=== PATIENT | female | born 1995 | race Two or more races ===

== ENCOUNTER → 2020-05-17 10:57 | Outpatient (BNVA) | payer OTHER, SELFPAY | PROVIDERS: PCP Internal Medicine; Referring Provider Internal Medicine; Visit Provider Internal Medicine Pulmonary Disease | DX: J45.50 Severe persistent asthma, uncomplicated (principal); Z91.09 Other allergy status, other than to drugs and biological substances; Z79.899 Other long term (current) drug therapy; Z23 Encounter for immunization | CPT/HCPCS: 90686; 99204 ==

== ENCOUNTER 2020-06-14 13:47 | Outpatient (REF) | payer OTHER, SELFPAY | END 2020-06-14 13:48 | disposition home or self-care (01) | LOC: HO.RESP 13:47 | PROVIDERS: PCP Internal Medicine; Visit Provider Internal Medicine Pulmonary Disease | DX: J45.50 Severe persistent asthma, uncomplicated (principal) ==

== ENCOUNTER 2020-07-18 08:44 | Emergency (ER) | payer OTHER, SELFPAY ==
[2020-07-18 09:00] VITALS: BP 131/76; PULSE 88; RESP 22; TEMP 36.4; O2SAT 99; BMI 24.4
--- NOTE | 2020-07-18 09:18 | ED_ITS ---
HPI - Asthma General Chief Complaint: Asthma Stated Complaint: Asthma Time Seen by Provider: 07/18/20 09:17 Source: patient Mode of arrival: ambulatory History of Present Illness HPI Narrative: 25-year-old female with a past medical history of asthma presents to ED complaining of productive cough, worsening SOB/asthma, and sore throat since . Reports feels something stuck in throat on right side s/p eating ham during holiday. States pain radiates to right ear with swelling noted to right throat area when eating. Denies fever, chills, chest pain, recent travel, LE edema, sick contacts MD complaint: asthma attack Related Data Home Medications Medication Instructions Recorded Confirmed ipratropium 0.5 mg-albuterol 3 mg ml INHALATION Q6H 05/11/20 05/17/20 (2.5 mg base)/3 mL nebulization soln montelukast 10 mg tablet 10 mg PO DAILY 05/11/20 05/17/20 prednisone 10 mg tablet 0 mg PO DIRECTED 05/11/20 05/17/20 albuterol sulfate 90 mcg/actuation 1 inh INHALATION QID 05/17/20 05/17/20 aerosol inhaler Previous Rx's Medication Instructions Recorded fluticasone 232mcg-salmeterol 1 inh INHALATION BID 30 Days #1 ea 05/17/20 14mcg/actuation breath act,powder sensor acetaminophen [Tylenol Extra 500 mg PO Q6H PRN #20 tab 07/18/20 Strength] cefuroxime axetil 250 mg PO Q12H 7 Days #14 tab 07/18/20 prednisone 40 mg PO DAILY 5 Days #10 tab 07/18/20 Allergies Allergy/AdvReac Type Severity Reaction Status Date / Time ibuprofen [From MOTRIN] AdvReac Unknown N/V, Verified 05/17/20 11:01 vomiting Review of Systems Review of Systems: Constitutional: No Weight loss, No Fever, No Chills ENT/Mouth: +R Ear Pain, No Nasal Congestion, No Sinus Pain, No Hoarseness, + sore throat, No Rhinorrhea, + Swallowing pain Cardiovascular: No Chest Pain, + SOB Respiratory: + Cough, No Sputum, + Wheezing Gastrointestinal: No Nausea, No Vomiting, No Diarrhea, No Constipation, No Abdominal pain Musculoskeletal: No joint pain, No Myalgias, No Joint Swelling Skin: No Skin Lesions, No rash Yes all other systems are reviewed and are negative [facility] Past Medical History Attestation statement: The following information was validated with the patient. Medical History (Updated 07/18/20 @ 11:36 by PHIL [place]) Asthma Family History Family History Mother Asthma Social History Social History Smoking Status: Never smoker Advance Directives: No Advance Directives Information Provided: No Physical Exam Vital Signs: Vital Signs: Last Vital Signs Temp 97.5 F 07/18/20 09:00 Pulse 87 07/18/20 10:59 Resp 22 H 07/18/20 09:00 BP 131/76 07/18/20 09:00 Pulse Ox 99 07/18/20 09:00 Body Mass Index 24.4 Const: General: cooperative and healthy appearing Orientation/consciousness: patient oriented x3 Limitations: no limitations HENMT: Head: Yes normal to inspection Ears: hearing grossly normal bilaterally and TM's normal bilaterally General nose exam: Normal external nose present Face and sinus: Yes normal facial exam Mouth: Normal oral and palatal mucosa present Throat: Yes posterior oropharynx normal and Yes uvula midline Eyes: General: appearance normal, both eyes and all related structures EOM: EOMs intact bilaterally Neck: Other: +right sided submandibular lymphadenopathy. Trachea midline Neck: Yes normal visual inspection and Yes no meningeal signs Chest: Chest palpation & inspection: normal inspection of the chest Resp: Effort & Inspection: no stridor and tachypneic Auscultation: no crackles and wheezes throughout Cardio: Rate: regular rate Heart sounds: S1 normal heart sound present and S2 normal heart sound present GI: Inspection: Yes normal to inspection Skin: Rashes: no rashes Wounds: no wounds Neuro: General: patient oriented x3 and no meningeal signs Gait exam (Neuro): Normal gait present Extrem: Other: No LE edema or calf tenderness General: Yes normal to insp ection Course Course Course Narrative: -1100--labs unremarkable, UA nitrate positive, with bacteria and epithelials > will empirically treat -CXR/neck soft tissue x-ray without acute abnormalities -1135--On re-evaluation after 2 DuoNebs lungs CTA, patient reports symptomatic improvement. Labs/imaging discussed including worrisome signs and symptoms and strict return precautions. Patient is to follow-up with ENT. MDM - Asthma MDM Narrative Medical decision making narrative: 25-year-old female with a past medical history of asthma presents to ED complaining of productive cough, worsening SOB/asthma, and sore throat since Thanksgiving. On exam tachypneic, diffuse wheezing throughout, right-sided lymphadenopathy noted, no appreciable intraoral/exterior swelling. Concern for asthma exacerbation. Throat pain concerning for ?food bolus vs lymphadenopathy vs pharyngitis. Exam not consistent with [employer]. Rule out pneumonia. Low concern for ACS/PE Plan: EKG, labs, CXR/neck soft tissue XR, DuoNeb, Solu-Medrol, magnesium, reassess Lab Data Result diagrams: 07/18/20 09:37 07/18/20 09:37 Labs: Lab Results 07/18/20 07/18/20 07/18/20 Range/Units 09:37 09:37 09:37 WBC 5.8 (4.8-10.8) X10*3/uL RBC 4.70 (4.20-5.50) X10*6/uL Hgb 14.5 (12.0-16.0) g/dl Hct 43.1 (37-47) % MCV 91.7 (80-98) fL MCH 30.9 (27.0-33.0) pg MCHC 33.6 (31.0-35.0) g/dl RDW 12.8 (11.0-16.0) % Plt Count 220 (160-400) X10*3/uL MPV 11.2 (9.4-12.3) fL Immature Gran % (Auto) 0.2 (0.0-0.4) % Neut % (Auto) 52.0 (45-73) % Lymph % (Auto) 24.8 (20-40) % [place] % (Auto) 5.3 (2-11) % Eos % (Auto) 16.7 H (0-4) % Baso % (Auto) 1.0 (0-2) % Lymph # (Auto) 1.4 (1.2-4.9) X10*3/uL [place] # (Auto) 0.3 (0.1-1.2) X10*3/uL Eos # (Auto) 1.0 H (0.0-0.4) X10*3/uL Baso # (Auto) 0.1 (0.0-0.2) X10*3/uL Abs Immat Gran (auto) 0.01 (0.00-0.03) X10*3/uL Absolute Neuts (auto) 3.0 (2.0-8.3) X10*3/uL Absolute Nucleated RBC 0.000 (0.0-0.012) X10*3/uL Nucleated RBC % (auto) 0.0 (0.0-0.2) /100WBC Hold Blue Top SEE NOTE Sodium 138 (135-145) mmol/L Potassium 4.5 (3.3-5.1) mmol/l Chloride 106 (96-108) mmol/L Carbon Dioxide 26 (22-29) mmol/L Anion Gap 11 L (12-20) BUN 6 L (9-16) mg/dL Creatinine 0.62 (0.5-1.4) mg/dL Estim Creat Clear Calc 108.5 Estimated GFR > 60 Random Glucose 79 (60-115) mg/dL Calcium 9.2 (8.4-10.2) mg/dL Magnesium 2.0 (1.6-2.6) mg/dL Total Bilirubin (0.0-1.0) mg/dL Direct Bilirubin (0.0-0.5) mg/dL AST (5-31) U/L ALT (0-31) U/L Alkaline Phosphatase (39-117) U/L Total Protein (6.5-8.0) g/dL Albumin (3.5-5.0) g/dL 07/18/20 Range/Units 09:37 WBC (4.8-10.8) X10*3/uL RBC (4.20-5.50) X10*6/uL Hgb (12.0-16.0) g/dl Hct (37-47) % MCV (80-98) fL MCH (27.0-33.0) pg MCHC (31.0-35.0) g/dl RDW (11.0-16.0) % Plt Count (160-400) X10*3/uL MPV (9.4-12.3) fL Immature Gran % (Auto) (0.0-0.4) % Neut % (Auto) (45-73) % Lymph % (Auto) (20-40) % [place] % (Auto) (2-11) % Eos % (Auto) (0-4) % Baso % (Auto) (0-2) % Lymph # (Auto) (1.2-4.9) X10*3/uL [place] # (Auto) (0.1-1.2) X10*3/uL Eos # (Auto) (0.0-0.4) X10*3/uL Baso # (Auto) (0.0-0.2) X10*3/uL Abs Immat Gran (auto) (0.00-0.03) X10*3/uL Absolute Neuts (auto) (2.0-8.3) X10*3/uL Absolute Nucleated RBC (0.0-0.012) X10*3/uL Nucleated RBC % (auto) (0.0-0.2) /100WBC Hold Blue Top Sodium (135-145) mmol/L Potassium (3.3-5.1) mmol/l Chloride (96-108) mmol/L Carbon Dioxide (22-29) mmol/L Anion Gap (12-20) BUN (9-16) mg/dL Creatinine (0.5-1.4) mg/dL Estim Creat Clear Calc Estimated GFR Random Glucose (60-115) mg/dL Calcium (8.4-10.2) mg/dL Magnesium (1.6-2.6) mg/dL Total Bilirubin 0.9 (0.0-1.0) mg/dL Direct Bilirubin 0.3 (0.0-0.5) mg/dL AST 20 (5-31) U/L ALT 13 (0-31) U/L Alkaline Phosphatase 96 (39-117) U/L Total Protein 7.7 (6.5-8.0) g/dL Albumin 4.3 (3.5-5.0) g/dL Discharge Plan Discharge Clinical Impression: Asthma with acute exacerbation, UTI (urinary tract infection) Patient Disposition: Home, Self-Care Instructions: Asthma (ED), Urinary Tract Infection in Women (ED) Additional Instructions: Your blood work and chest x-ray/neck x-ray were reassuring today in the ED You are having an asthma exacerbation, continue taking her asthma inhalers and using her nebulizer machine at home In addition start taking prednisone as prescribed You need to follow-up with an ENT doctor Ceftin is an antibiotic that should cover the inflamed lymph node in her neck, and your urinary tract infection Follow up with her doctor If symptoms persist or worsen, you fever, are unable to eat or drink, develops shortness of breath, or chest pain return to the ED Prescriptions: New cefuroxime axetil 250 mg tablet 250 mg PO Q12H 7 Days Qty: 14 RF: 0 prednisone 20 mg tablet 40 mg PO DAILY 5 Days Qty: 10 RF: 0 acetaminophen [Tylenol Extra Strength] 500 mg tablet 500 mg PO Q6H PRN (Reason: pain or fever) Qty: 20 RF: 0 No Action albuterol sulfate [ProAir HFA] 90 mcg/actuation HFA aerosol inhaler 1 inh inhalation QID RF: 0 AirDuo Digihaler 232-14 mcg/actuation aero powdr breath act w/sensor 1 inh inhalation BID 30 Days Qty: 1 RF: 6 montelukast 10 mg tablet 10 mg PO DAILY RF: 0 ipratropium-albuterol 0.5 mg-3 mg(2.5 mg base)/3 mL solution for nebulization inhalation Q6H RF: 0 prednisone 10 mg tablet 0 mg PO DIRECTED RF: 0 Referrals: Edenilson Schumacher [Physician] - 2 days Mallorie Cristina MD [Primary Care Provider] - 3 days
--- NOTE | 2020-07-18 09:23 | XR_ITS ---
EXAMINATION: TWO-VIEW CHEST AND SOFT TISSUE NECK CLINICAL INFORMATION: Shortness of breath. Asthma. COMPARISON: Chest x-ray of April 29, 2020 and March 16, 2020 TECHNIQUE: PA and lateral chest and AP and lateral soft tissue neck FINDINGS: 2 views of the chest do not demonstrate any evidence of acute parenchymal disease, pneumothorax, or pleural effusion. Heart normal size. No evidence of pulmonary edema. AP and lateral soft tissue neck study does not demonstrate any abnormal retropharyngeal soft tissue swelling. No radiopaque foreign body is seen. No significant airway narrowing is noted. Epiglottis and aryepiglottic folds unremarkable. There is a question of fusion facet joints C4 through C6. XR/XR chest 2V IMPRESSION: No significant chest or soft tissue neck abnormality appreciated.
--- NOTE | 2020-07-18 09:23 | XR_ITS ---
EXAMINATION: TWO-VIEW CHEST AND SOFT TISSUE NECK CLINICAL INFORMATION: Shortness of breath. Asthma. COMPARISON: Chest x-ray of April 29, 2020 and March 16, 2020 TECHNIQUE: PA and lateral chest and AP and lateral soft tissue neck FINDINGS: 2 views of the chest do not demonstrate any evidence of acute parenchymal disease, pneumothorax, or pleural effusion. Heart normal size. No evidence of pulmonary edema. AP and lateral soft tissue neck study does not demonstrate any abnormal retropharyngeal soft tissue swelling. No radiopaque foreign body is seen. No significant airway narrowing is noted. Epiglottis and aryepiglottic folds unremarkable. There is a question of fusion facet joints C4 through C6. XR/XR soft tissue neck IMPRESSION: No significant chest or soft tissue neck abnormality appreciated.
--- NOTE | 2020-07-18 09:23 | ECG_ITS ---
Test Reason : SOB Blood Pressure : / mmHG Vent. Rate : 070 BPM Atrial Rate : 070 BPM P-R Int : 166 ms QRS Dur : 084 ms QT Int : 380 ms P-R-T Axes : 053 071 056 degrees QTc Int : 410 ms Normal sinus rhythm with sinus arrhythmia Normal ECG When compared with ECG of 07-NOV-2019 08:24, Vent. rate has decreased BY 44 BPM Referred By: Jacqueline Moraes Electronically Signed By:JEANNETTE VERDUGO MD
[2020-07-18 09:45] LABS: MANUAL DIFF FLAG NO
[2020-07-18 09:46] LABS: Basophils Absolute Auto 0.1 X10*3/uL (0.0-0.2); Eosinophils Percent Auto 16.7 % (0-4); Hematocrit 43.1 % (37-47); Hemoglobin 14.5 g/dl (12.0-16.0); Imm Gran Abs Auto 0.01 X10*3/uL (0.00-0.03); Imm Gran Pct Auto 0.2 % (0.0-0.4); Lymphocytes Absolute Auto 1.4 X10*3/uL (1.2-4.9); Lymphocytes Percent Auto 24.8 % (20-40); Mean Corpuscular HGB Conc 33.6 g/dl (31.0-35.0); Mean Corpuscular Hemoglobin 30.9 pg (27.0-33.0); Mean Corpuscular Volume 91.7 fL (80-98); Mean Platelet Volume 11.2 fL (9.4-12.3); Monocytes Absolute Auto 0.3 X10*3/uL (0.1-1.2); Monocytes Percent Auto 5.3 % (2-11); Platelet Count 220 X10*3/uL (160-400); Red Cell Distribution Width 12.8 % (11.0-16.0); White Blood Count 5.8 X10*3/uL (4.8-10.8)
[2020-07-18] MEDS: methylPREDNISolone Sod Succ/PF 125 MG/2 ML VIAL IVPUSH (09:47)
[2020-07-18] MEDS: Magnesium Sulfate/H2O 2 GM/50 ML PIGGYBACK IV (09:47)
[2020-07-18 10:13] LABS: Alanine Aminotransferase 13 U/L (0-31); Albumin Level 4.3 g/dL (3.5-5.0); Alkaline Phosphatase 96 U/L (39-117); Aspartate Amino Transferase 20 U/L (5-31); Bilirubin Direct 0.3 mg/dL (0.0-0.5); Bilirubin Total 0.9 mg/dL (0.0-1.0); Total Protein 7.7 g/dL (6.5-8.0)
[2020-07-18 10:16] LABS: Anion Gap 11 (12-20); Blood Urea Nitrogen 6 mg/dL (9-16); Calcium 9.2 mg/dL (8.4-10.2); Carbon Dioxide 26 mmol/L (22-29); Chloride 106 mmol/L (96-108); Creatinine Clr Calc Pharmacy 108.5; Estimated Glomerular Filt Rate > 60; Glucose Random 79 mg/dL (60-115); Potassium 4.5 mmol/l (3.3-5.1); Sodium 138 mmol/L (135-145)
[2020-07-18] MEDS: Albuterol/Iprat 2.5/0.5MG 3 ML AMPUL.NEB INHALE ×2 (10:44→10:59)
[2020-07-18 10:45] VITALS: PULSE 71; O2SAT 97
[2020-07-18 10:59] VITALS: PULSE 87; O2SAT 97
[2020-07-18] MEDS: 0.9 % Sodium Chloride 1,000 ML 999 ML IVCONT (11:10)
[2020-07-18] MEDS: Acetaminophen 325 MG TABLET 650 MG PO (11:38)
--- NOTE | 2020-07-18 11:41 | PC.NURSE ---
patient able to complete PO challenge successfully.
== END 2020-07-18 11:52 | disposition home or self-care (01) ==
PROVIDERS: Physician Assistant; Emergency Provider Emergency Medicine; PCP Internal Medicine
DX: J45.901 Unspecified asthma with (acute) exacerbation (principal); N39.0 Urinary tract infection, site not specified; R59.1 Generalized enlarged lymph nodes; Z79.899 Other long term (current) drug therapy
CPT/HCPCS: 36415; 70360; 71046; 80048; 80076; 83735; 85025; 93005; 94640; 96365; 96366; 99283; 99284; J2930; J3475

== ENCOUNTER → 2020-07-22 09:27 | Outpatient (BNVA) | payer OTHER, SELFPAY | PROVIDERS: PCP Internal Medicine; Referring Provider Internal Medicine; Visit Provider Internal Medicine Pulmonary Disease | DX: Z13.89 Encounter for screening for other disorder (principal) ==

== ENCOUNTER 2020-08-13 09:28 | Emergency (ER) | payer OTHER, SELFPAY ==
[2020-08-13 09:32] VITALS: PULSE 103; RESP 22; TEMP 36.7; O2SAT 96; BMI 23.4
[2020-08-13 11:10] VITALS: BP 110/72; PULSE 88; RESP 20; TEMP 36.7; O2SAT 97
--- NOTE | 2020-08-13 11:11 | XR_ITS ---
EXAMINATION: XR CHEST CLINICAL INFORMATION: Wheezing, shortness of breath. COMPARISON: 07/18/2020 chest radiographs. TECHNIQUE: Frontal view of the chest was obtained. FINDINGS: No significant abnormality is noted involving the heart, lungs, mediastinum, bony thorax or soft tissues. XR/XR chest 1V IMPRESSION: No acute cardiopulmonary process.
[2020-08-13] MEDS: Albuterol Sulfate (0.083%) 2.5 MG/3 ML VIAL.NEB 10 MG INHALE (11:50)
[2020-08-13] MEDS: methylPREDNISolone Sod Succ/PF 125 MG/2 ML VIAL 80 MG IVPUSH (11:53)
[2020-08-13 11:54] VITALS: PULSE 84; O2SAT 98
--- NOTE | 2020-08-13 11:55 | PC.NURSE ---
iv inserted, labs drawn, teletypesetter monitor applied, nsr 80s, vss, rt in room doing updraft, will continue to monitor.
[2020-08-13 11:57] LABS: Basophils Percent Auto 0.5 % (0-2); Eosinophils Absolute Auto 0.3 X10*3/uL (0.0-0.4); Eosinophils Percent Auto 4.6 % (0-4); Hematocrit 39.7 % (37-47); Hemoglobin 13.5 g/dl (12.0-16.0); Imm Gran Abs Auto 0.02 X10*3/uL (0.00-0.03); Imm Gran Pct Auto 0.3 % (0.0-0.4); Lymphocytes Absolute Auto 1.4 X10*3/uL (1.2-4.9); Lymphocytes Percent Auto 19.3 % (20-40); MANUAL DIFF FLAG NO; Mean Corpuscular Hemoglobin 31.3 pg (27.0-33.0); Mean Corpuscular Volume 92.1 fL (80-98); Mean Platelet Volume 10.9 fL (9.4-12.3); Monocytes Absolute Auto 0.5 X10*3/uL (0.1-1.2); Monocytes Percent Auto 6.1 % (2-11); Neutrophils Absolute Auto 5.1 X10*3/uL (2.0-8.3); Neutrophils Percent Auto 69.2 % (45-73); Platelet Count 204 X10*3/uL (160-400); Red Blood Count 4.31 X10*6/uL (4.20-5.50); White Blood Count 7.4 X10*3/uL (4.8-10.8)
--- NOTE | 2020-08-13 12:00 | ED.ASTHMA ---
HPI - Asthma General Chief Complaint: Asthma Stated Complaint: asthma Time Seen by Provider: 08/13/20 11:11 Source: patient Mode of arrival: ambulatory Limitations: no limitations History of Present Illness HPI Narrative: 25 y/o female with history of severe persistent asthma, depression, eczema who presents to the ED today with worsening asthma symtptoms and wheezing for the last 1 week. She has been using her nebulizer at home with no improvement. She also reports right lateral neck pain and swelling that has been present for the last 3 weeks. She was seen here on 07/18 for similar complaints, had negative XR neck and told to f/u with ENT. ENT does not take her insurance per patient. She was discharged with prednisone and antibiotics but she states the neck swelling has only gotten worse. It hurts to eat and swallow. She feels it is making her breathing worse. She denies fever, chills, N/V, cough. MD complaint: shortness of breath and wheezing Onset (ago): day(s) (7) Severity: moderate and similar to prior Related Data Home Medications Medication Instructions Recorded Confirmed ipratropium 0.5 mg-albuterol 3 mg ml INHALATION Q6H 05/11/20 08/05/20 (2.5 mg base)/3 mL nebulization soln montelukast 10 mg tablet 10 mg PO DAILY 05/11/20 08/05/20 Previous Rx's Medication Instructions Recorded fluticasone 232mcg-salmeterol 1 inh INHALATION BID 30 Days #1 ea 05/17/20 14mcg/actuation breath act,powder sensor acetaminophen [Tylenol Extra 500 mg PO Q6H PRN #20 tab 07/18/20 Strength] albuterol sulfate 90 mcg/actuation 1 puff PO Q4H PRN 30 Days #8.5 g 08/04/20 aerosol inhaler triamcinolone acetonide 0.1 % 1 appl TOPICAL BID PRN 30 Days #30 08/05/20 topical cream g fluoxetine 10 mg capsule 10 mg PO DAILY 30 Days #30 cap 08/07/20 azithromycin [Zithromax Z-Kyrie] See Rx Instructions .ROUTE 08/13/20 .COMPLEX #6 tab prednisone 10 mg PO PER PKG DIR #48 ea 08/13/20 Allergies Allergy/AdvReac Type Severity Reaction Status Date / Time ibuprofen [From MOTRIN] AdvReac Intermediate N/V, Verified 08/13/20 11:06 vomiting Review of Systems Review of Systems: Constitutional: No Fever, No Chills ENT/Mouth: No sore throat, No Rhinorrhea, + Swallowing Difficulty Cardiovascular: No Chest Pain, + SOB, No Orthopnea, No Edema Respiratory: No Cough, No Sputum, + Wheezing, + dyspnea Gastrointestinal: No Nausea, No Vomiting, No Diarrhea, No abdominal Pain Musculoskeletal: No joint pain, No Myalgias Skin: No Skin Lesions, No rash Neuro: No Weakness, No Numbness, No Dizziness, No Headache Psych: No Anxiety/Panic, No Depression Heme/Lymph: No Bruising, + Lymphadenopathy Endocrine: No Polyuria, No Polydipsia PMFSH Past Medical History Medical History (Updated 08/13/20 @ 14:26 by PHIL Up) Asthma Depression Eczema Surgical History History of cholecystectomy History of tonsillectomy and adenoidectomy Family History Family History (Updated 07/30/20 @ 07:41 by Shana Rivas [facility]) Mother Asthma Bipolar 1 disorder Hypertension Schizophrenia Father No problems noted. Maternal Grandmother Hypertension Family/Other Breast cancer Social History Social History Alcohol intake: never Smoking Status: Never smoker Use of substances other than those prescribed or required for medical reasons: No Advance Directives: No Advance Directives Information Provided: No Physical Exam Vital Signs: Vital Signs: Last Vital Signs Temp 98.3 F 08/13/20 13:43 Pulse 82 08/13/20 13:43 Resp 17 08/13/20 13:43 BP 116/66 08/13/20 13:43 Pulse Ox 99 08/13/20 13:43 Body Mass Index 23.4 Appearance: Alert. Oriented X3. No acute distress. Eyes: Pupils equal, round and reactive to light. ENT: Pharynx normal, s/p tonsillectomy. Neck: Normal inspection. Neck supple. 1cm right sided enalrge LN alond SCM. tender to touch. No skin changes CVS: Normal heart rate and rhythm. Pulses normal. Respiratory: No respiratory distress. Expiratory wheeze throughout. Abdomen: Soft and nontender. +BS x4 Skin: Skin warm and dry. Normal skin color. Normal skin turgor. No rashes. Extremities: No lower extremity edema. Neuro: Oriented X 3. No motor deficit. No sensory deficit. Course Course Course Narrative: 25 y/o female with history of severe persistent asthma presenting with wheezing and asthma exacerbation. Also reports almost 1 month of painful right sided neck mass causing painful swallowing and difficulty breathing. XR 3 weeks ago was negative. Exam reveals palpable LN however given symptoms will proceed with CT scan for further investigtion. No COVID symptoms. 1 hour neb ordered & IV steroids. Will re-evaluate. Reevaluation(s) Reevaluation #1: CXR negative. Labs unremarkable. Resp status improved after neb and steroids. Awaiting CT scan. Reevaluation #2: Patient now refusing CT scan - she has called her PCP while in the ER to arrange for outpatient ENT evaluation and CT scan with her doctor. Her resp status is stable and she is able to tolerate food/drink by mouth. She is stable for discharge with plans for continued outpatient workup. MDM - Asthma Lab Data Result diagrams: 08/13/20 11:48 08/13/20 11:48 Labs: Lab Results 08/13/20 08/13/20 Range/Units 11:48 11:48 WBC 7.4 (4.8-10.8) X10*3/uL RBC 4.31 (4.20-5.50) X10*6/uL Hgb 13.5 (12.0-16.0) g/dl Hct 39.7 (37-47) % MCV 92.1 (80-98) fL MCH 31.3 (27.0-33.0) pg MCHC 34.0 (31.0-35.0) g/dl RDW 13.0 (11.0-16.0) % Plt Count 204 (160-400) X10*3/uL MPV 10.9 (9.4-12.3) fL Immature Gran % (Auto) 0.3 (0.0-0.4) % Neut % (Auto) 69.2 (45-73) % Lymph % (Auto) 19.3 L (20-40) % [place] % (Auto) 6.1 (2-11) % Eos % (Auto) 4.6 H (0-4) % Baso % (Auto) 0.5 (0-2) % Lymph # (Auto) 1.4 (1.2-4.9) X10*3/uL [place] # (Auto) 0.5 (0.1-1.2) X10*3/uL Eos # (Auto) 0.3 (0.0-0.4) X10*3/uL Baso # (Auto) 0.0 (0.0-0.2) X10*3/uL Abs Immat Gran (auto) 0.02 (0.00-0.03) X10*3/uL Absolute Neuts (auto) 5.1 (2.0-8.3) X10*3/uL Absolute Nucleated RBC 0.000 (0.0-0.012) X10*3/uL Nucleated RBC % (auto) 0.0 (0.0-0.2) /100WBC Sodium 139 (135-145) mmol/L Potassium 3.7 (3.3-5.1) mmol/l Chloride 107 (96-108) mmol/L Carbon Dioxide 26 (22-29) mmol/L Anion Gap 10 L (12-20) BUN 8 L (9-16) mg/dL Creatinine 0.62 (0.5-1.4) mg/dL Estim Creat Clear Calc 98.7 Estimated GFR > 60 Random Glucose 81 (60-115) mg/dL Calcium 8.8 (8.4-10.2) mg/dL Beta HCG, Quant < 2 mIU/mL Discharge Plan Discharge Clinical Impression: Asthma with acute exacerbation Qualifiers: Asthma severity: severe Asthma persistence: persistent Qualified Code(s): J45.51 - Severe persistent asthma with (acute) exacerbation Patient Disposition: Home, Self-Care Instructions: Asthma (ED), Adenitis (ED) Additional Instructions: Your chest x-ray was normal. It was recommended that you get a CT scan of your neck to further investigate your symptoms however you needed to leave the ER today and have arranged to have this evaluated as an outpatient. If your symptoms worsen, come back to the ER for further evaluation. Take the prescribed prednisone taper and Z-pack to help your asthma symptoms. Follow up with your doctor this week. Prescriptions: New prednisone 10 mg tablets,dose pack 10 mg PO PER PKG DIR Qty: 48 RF: 0 azithromycin [Zithromax Z-Kyrie] 250 mg tablet See Rx Instructions .ROUTE .COMPLEX Qty: 6 RF: 0 No Action albuterol sulfate 90 mcg/actuation HFA aerosol inhaler 1 puff PO Q4H PRN (Reason: bronchospasm) 30 Days Qty: 8.5 RF: 2 fluoxetine 10 mg capsule 10 mg PO DAILY 30 Days Qty: 30 RF: 0 acetaminophen [Tylenol Extra Strength] 500 mg tablet 500 mg PO Q6H PRN (Reason: pain or fever) Qty: 20 RF: 0 triamcinolone acetonide 0.1 % cream 1 appl topical BID PRN (Reason: rash) 30 Days Qty: 30 RF: 3 AirDuo Digihaler 232-14 mcg/actuation aero powdr breath act w/sensor 1 inh inhalation BID 30 Days Qty: 1 RF: 6 montelukast 10 mg tablet 10 mg PO DAILY RF: 0 ipratropium-albuterol 0.5 mg-3 mg(2.5 mg base)/3 mL solution for nebulization inhalation Q6H RF: 0 Referrals: Edenilson Schumacher [Physician] - 2 days (neck mass)
[2020-08-13 12:21] LABS: Anion Gap 10 (12-20); Blood Urea Nitrogen 8 mg/dL (9-16); Calcium 8.8 mg/dL (8.4-10.2); Carbon Dioxide 26 mmol/L (22-29); Chloride 107 mmol/L (96-108); Creatinine Clr Calc Pharmacy 98.7; Estimated Glomerular Filt Rate > 60; Glucose Random 81 mg/dL (60-115); Potassium 3.7 mmol/l (3.3-5.1); Sodium 139 mmol/L (135-145)
[2020-08-13 13:19] LABS: HCG Quantitative < 2 mIU/mL
[2020-08-13 13:43] VITALS: BP 116/66; PULSE 82; RESP 17; TEMP 36.8; O2SAT 99
--- NOTE | 2020-08-13 13:44 | PC.NURSE ---
patient a&ox3, speaking in full sentences, ekg monitor nsr 80s, pt states she is feeling better, lungs are diminished but wheezing has cleared, will continue to monitor
== END 2020-08-13 15:14 | disposition home or self-care (01) ==
PROVIDERS: Physician Assistant; Emergency Provider Emergency Medicine Emergency Medical Services; PCP Internal Medicine
DX: J45.51 Severe persistent asthma with (acute) exacerbation (principal); Z79.899 Other long term (current) drug therapy; I10 Essential (primary) hypertension; Z20.828 Contact with and (suspected) exposure to other viral communicable diseases
CPT/HCPCS: 36415; 71045; 80048; 84702; 85025; 94640; 96374; 96375; 99284; 99285; J2930

== ENCOUNTER 2020-09-03 09:26 | Emergency (ER) | payer OTHER, SELFPAY ==
[2020-09-03 09:53] VITALS: BP 121/69; PULSE 81; RESP 18; TEMP 36.6; O2SAT 99; BMI 24.4
--- NOTE | 2020-09-03 10:32 | ED_ITS ---
HPI - Dental/Oral General Chief complaint: Dental/Oral Stated complaint: mouth pain Time Seen by Provider: 09/03/20 10:17 Source: patient Mode of arrival: ambulatory History of Present Illness HPI Narrative: 25-year-old Female with a past medical history of asthma, eczema, depression, tonsillectomy and adenoidectomy presenting to the ED complaining of right cheek sore s/p biting cheek while eating. Reports acute on chronic right- sided neck pain/swelling radiating to eat which she has been evaluated in the ED for recently, and admits she has ENT follow-up on the . States neck pain only happens when eating, no swelling at present. Denies difficulty/inability to swallow, fever, drainage from ears/hearing loss, dental injury/pain, fevers Related Data Home Medications Medication Instructions Recorded Confirmed ipratropium 0.5 mg-albuterol 3 mg ml INHALATION Q6H 05/11/20 08/05/20 (2.5 mg base)/3 mL nebulization soln montelukast 10 mg tablet 10 mg PO DAILY 05/11/20 08/05/20 Previous Rx's Medication Instructions Recorded fluticasone 232mcg-salmeterol 1 inh INHALATION BID 30 Days #1 ea 05/17/20 14mcg/actuation breath act,powder sensor acetaminophen [Tylenol Extra 500 mg PO Q6H PRN #20 tab 07/18/20 Strength] albuterol sulfate 90 mcg/actuation 1 puff PO Q4H PRN 30 Days #8.5 g 08/04/20 aerosol inhaler triamcinolone acetonide 0.1 % 1 appl TOPICAL BID PRN 30 Days #30 08/05/20 topical cream g fluoxetine 10 mg capsule 10 mg PO DAILY 30 Days #30 cap 08/07/20 azithromycin [Zithromax Z-Kyrie] See Rx Instructions .ROUTE 08/13/20 .COMPLEX #6 tab prednisone 10 mg PO PER PKG DIR #48 ea 08/13/20 lidocaine HCl [Lidocaine Viscous] 1 appl MUCOUS MEMBRANE BID PRN 09/03/20 #100 ml Allergies Allergy/AdvReac Type Severity Reaction Status Date / Time ibuprofen [From MOTRIN] AdvReac Intermediate N/V, Verified 08/13/20 11:06 vomiting Review of Systems Review of Systems: Constitutional: No Weight loss, No Fever, No Chills ENT/Mouth: + Ear Pain, No Nasal Congestion, No Sinus Pain, No Hoarseness, No sore throat, + right cheek pain, No Swallowing Difficulty Cardiovascular: No SOB Respiratory: No Cough,No Wheezing Skin: + Skin Lesions, No rash Yes all other systems are reviewed and are negative [facility] Past Medical History Attestation statement: The following information was validated with the patient. Medical History (Updated 09/03/20 @ 10:38 by PHIL [place]) Asthma Depression Eczema Rhinitis Surgical History History of cholecystectomy History of tonsillectomy and adenoidectomy Family History Family History (Updated 07/30/20 @ 07:41 by Shana Rivas [facility]) Mother Asthma Bipolar 1 disorder Hypertension Schizophrenia Father No problems noted. Maternal Grandmother Hypertension Family/Other Breast cancer Social History Social History Alcohol intake: never Smoking Status: Never smoker Advance Directives: No Advance Directives Information Provided: Yes Physical Exam Vital Signs: Vital Signs: Last Vital Signs Temp 97.9 F 09/03/20 09:53 Pulse 81 09/03/20 09:53 Resp 18 09/03/20 09:53 BP 121/69 09/03/20 09:53 Pulse Ox 99 09/03/20 09:53 Body Mass Index 24.4 Const: General: cooperative, healthy appearing, comfortable and no acute distress Orientation/consciousness: patient oriented x3 Limitations: no limitations HENMT: Other: No lymphadenopathy appreciated. + right cheek canker sore noted. No cellulitis no fluctuance or induration Head: Yes normal to inspection Ea rs: hearing grossly normal bilaterally and TM's normal bilaterally General nose exam: Normal external nose present Face and sinus: Yes normal facial exam Mouth: lip normal, tongue normal, no drooling and no muffled voice Throat: Yes posterior oropharynx normal, Yes tonsils normal, Yes uvula midline and No peritonsillar mass Eyes: General: appearance normal, both eyes and all related structures EOM: EOMs intact bilaterally Neck: Neck: Yes normal visual inspection, Yes full ROM, Yes no lymphadenopathy and Yes no meningeal signs Resp: Effort & Inspection: normal respiratory effort and no stridor Cardio: Rate: regular rate Skin: Rashes: no rashes Wounds: no wounds Neuro: General: patient oriented x3 and no meningeal signs Gait exam (Neuro): Normal gait present Extrem: General: Yes normal to inspection MDM - Dental/Oral MDM Narrative Medical decision making narrative: Physical exam consistent with canker sore s/p biting cheek. No appreciable intraoral or neck swelling. Exam not consistent with [employer]/cellulitis or edema. Patient has follow-up with ENT next month Discharge Plan Discharge Clinical Impression: Canker sores oral Patient Disposition: Home, Self-Care Instructions: Canker Sores (ED) Additional Instructions: Practice warm saltwater rinses at home In addition viscous lidocaine will help numb the area Avoid biting area again/trauma If area worsens, looks infected, you have oral or neck swelling, difficulty or inability to swallow, or fever return to the ED Make sure you follow-up with her ENT doctor as scheduled Prescriptions: New Lidocaine Viscous 2 % solution 1 appl mucous membrane BID PRN (Reason: pain) Qty: 100 RF: 0 No Action albuterol sulfate 90 mcg/actuation HFA aerosol inhaler 1 puff PO Q4H PRN (Reason: bronchospasm) 30 Days Qty: 8.5 RF: 2 fluoxetine 10 mg capsule 10 mg PO DAILY 30 Days Qty: 30 RF: 0 acetaminophen [Tylenol Extra Strength] 500 mg tablet 500 mg PO Q6H PRN (Reason: pain or fever) Qty: 20 RF: 0 prednisone 10 mg tablets,dose pack 10 mg PO PER PKG DIR Qty: 48 RF: 0 azithromycin [Zithromax Z-Kyrie] 250 mg tablet See Rx Instructions .ROUTE .COMPLEX Qty: 6 RF: 0 triamcinolone acetonide 0.1 % cream 1 appl topical BID PRN (Reason: rash) 30 Days Qty: 30 RF: 3 AirDuo Digihaler 232-14 mcg/actuation aero powdr breath act w/sensor 1 inh inhalation BID 30 Days Qty: 1 RF: 6 montelukast 10 mg tablet 10 mg PO DAILY RF: 0 ipratropium-albuterol 0.5 mg-3 mg(2.5 mg base)/3 mL solution for nebulization inhalation Q6H RF: 0 Referrals: Edenilson Schumacher [Physician] - 2 days
== END 2020-09-03 10:44 | disposition home or self-care (01) ==
PROVIDERS: Emergency Provider Emergency Medicine; PCP Internal Medicine
DX: K12.0 Recurrent oral aphthae (principal)
CPT/HCPCS: 99283

== ENCOUNTER 2020-09-28 08:33 | Emergency (ER) | payer OTHER, SELFPAY ==
[2020-09-28 08:43] VITALS: BP 129/74; PULSE 78; RESP 20; TEMP 36.7; O2SAT 98; BMI 24.4
--- NOTE | 2020-09-28 09:42 | ED_ITS ---
HPI - Asthma General Chief Complaint: Asthma Stated Complaint: ASTHMA Time Seen by Provider: 09/28/20 09:20 Source: patient Mode of arrival: ambulatory Limitations: no limitations History of Present Illness HPI Narrative: 25-year-old female with a history asthma who presents emergency department for evaluation of asthma exacerbation. The patient states that she gets flare-ups her asthma every 1-2 months and requires treatment in the emergency department. She states that her asthma has been worse over the past week. She states that she has been using her albuterol nebulizer every 6 hours and her albuterol inhaler every 4 hours with no relief for symptoms. She states that last night her shortness of breath got worse therefore she came to the emergency department this morning for evaluation. She states that in the emergency department she often gets IV steroids, magnesium IV and breathing treatments. She states that she has only been hospitalized once in the past at [facility] and she has never been intubated. She denied fever, chills, cough, chest pain, abdominal pain, nausea, vomiting, diarrhea, myalgias, arthralgias, loss of taste or smell, exposure to COVID-19 Related Data Home Medications Medication Instructions Recorded Confirmed ipratropium 0.5 mg-albuterol 3 mg ml INHALATION Q6H 05/11/20 09/09/20 (2.5 mg base)/3 mL nebulization soln montelukast 10 mg tablet 10 mg PO DAILY 05/11/20 09/09/20 Previous Rx's Medication Instructions Recorded fluticasone 232mcg-salmeterol 1 inh INHALATION BID 30 Days #1 ea 05/17/20 14mcg/actuation breath act,powder sensor acetaminophen [Tylenol Extra 500 mg PO Q6H PRN #20 tab 07/18/20 Strength] albuterol sulfate 90 mcg/actuation 1 puff PO Q4H PRN 30 Days #8.5 g 08/04/20 aerosol inhaler fluoxetine 10 mg capsule 10 mg PO DAILY #30 cap 09/07/20 phentermine 37.5 mg tablet 37.5 mg PO DAILY 30 Days #30 tab 09/09/20 albuterol sulfate 2.5 mg INHALATION Q6H #180 ml 09/28/20 prednisone 60 mg PO DAILY 5 Days #15 tab 09/28/20 Allergies Allergy/AdvReac Type Severity Reaction Status Date / Time ibuprofen [From MOTRIN] AdvReac Intermediate N/V, Verified 09/26/20 14:03 vomiting Review of Systems Review of Systems: Yes all other systems are reviewed and are negative Neurologic: Reports Abnormal speech present [facility] Past Medical History Medical History Asthma Depression Eczema Rhinitis Weight gain Surgical History History of cholecystectomy History of tonsillectomy and adenoidectomy Family History Family History Mother Asthma Bipolar 1 disorder Hypertension Schizophrenia Father No problems noted. Maternal Grandmother Hypertension Family/Other Breast cancer Social History Social History Alcohol intake: unknown Smoking Status: Unknown if ever smoked Use of substances other than those prescribed or required for medical reasons: No Advance Directives: No Advance Directives Information Provided: No Physical Exam Vital Signs: Vital Signs: Last Vital Signs Temp 98.0 F 09/28/20 08:43 Pulse 105 H 09/28/20 10:41 Resp 20 09/28/20 10:41 BP 117/65 09/28/20 10:41 Pulse Ox 100 09/28/20 10:41 Body Mass Index 24.4 Const: General: cooperative and healthy appearing Orientation/consciousness: oriented to person and oriented to place Limitations: no limitations HENMT: Head: Yes normal to inspection, Yes normocephalic and Yes atraumatic Ears: external ears normal General nose exam: Normal external nose present Face and sinus: Yes normal facial exam Mouth: Normal oral and palatal mucosa present Throat: Yes posterior oropharynx normal Eyes: Periorbital: periorbital findings normal Eyelids: Yes eyelids normal Conjunctivae: conjunctivae normal Sclerae: sclerae normal Corneas: corneas normal Pupils: Equal, round and reactive pupils present Direct Ophthalmoscopy: normal light reflex Neck: Neck: Yes full ROM, Yes no lymphadenopathy, Yes no meningeal signs, Yes trachea midline and Yes supple Chest: Chest palpation & inspection: normal inspection of the chest and normal palpation of entire chest wall Resp: Effort & Inspection: normal respiratory effort and able to speak in complete sentences Auscultation: rhonchi throughout and wheezes throughout Cardio: Rate: regular rate Rhythm: regular rhythm Heart sounds: S1 normal heart sound present, S2 normal heart sound present and no murmurs GI: Inspection: Yes normal to inspection Palpation (GI): Soft to palpation, nontender, no guarding, not rigid and No hepatosplenomegaly present : General: Yes no CVA tenderness Back/Spine/Pelvis: Back: no CVA tenderness Cervical Spine: normal cervical lordosis Thoracic/Lumbar Spine: thoracic and lumbar spine normal to inspection Skin: Lesions: no lesions Rashes: no rashes Wounds: no wounds Neuro: General: oriented to person, oriented to place and no meningeal signs Cranial nerves: Yes Equal, round and reactive pupils present Cognition (Neuro): normal cognition Speech: Abnormal speech present Motor exam (neuro): 5/5 motor strength present throughout Extrem: General: Yes normal to inspection and Yes full ROM Psych: Appearance: well kempt Mental Status: mental status grossly normal Speech and movement: Normal speech and movement present Affect: normal affect Attitude: cooperative Thought process: Normal thought process present Thought content: Normal thought content present Course Course Course Narrative: 25-year-old female with a history asthma who presents emergency department for an elevation of an asthma exacerbation. Physical exami [facility] revealed that she was afebrile, she does have a slight elevated respiratory rate 20, O2 saturation was 90% on room air. Lung exam revealed diffuse wheezing and rhonchi. The patient was ordered to get Solu-Medrol 125 mg IV, magnesium sulfate 2 g IV and an hour long albuterol nebulizer 7.5 mg. 1226: The patient states she is feeling significantly better. Repeat lung exam was clear to auscultation. the patient will be discharged home with a prescription for prednisone 60 mg once a day for 5 days and albuterol nebulizer solution. She was given verbal and printed instructions and discharged home. Discharge Plan Discharge Clinical Impression: Asthma exacerbation Qualifiers: Asthma severity: severe Asthma persistence: unspecified Qualified Code(s): J45.901 - Unspecified asthma with (acute) exacerbation Patient Disposition: Home, Self-Care Instructions: Asthma (ED) Additional Instructions: Take prednisone 60 mg once a day for 5 days. Use all of your other medications as prescribed by your doctor. Follow-up with your doctor in 2 days. Please return to the emergency department if your symptoms get worse or if you develop any symptoms that are concerning to you. Prescriptions: New prednisone 20 mg tablet 60 mg PO DAILY 5 Days Qty: 15 RF: 0 albuterol sulfate 2.5 mg /3 mL (0.083 %) solution for nebulization 2.5 mg inhalation Q6H Qty: 180 RF: 0 No Action albuterol sulfate 90 mcg/actuation HFA aerosol inhaler 1 puff PO Q4H PRN (Reason: bronchospasm) 30 Days Qty: 8.5 RF: 2 fluoxetine 10 mg capsule 10 mg PO DAILY Qty: 30 RF: 6 acetaminophen [Tylenol Extra Strength] 500 mg tablet 500 mg PO Q6H PRN (Reason: pain or fever) Qty: 20 RF: 0 phentermine 37.5 mg tablet 37.5 mg PO DAILY 30 Days Qty: 30 RF: 0 AirDuo Digihaler 232-14 mcg/actuation aero powdr breath act w/sensor 1 inh inhalation BID 30 Days Qty: 1 RF: 6 montelukast 10 mg tablet 10 mg PO DAILY RF: 0 ipratropium-albuterol 0.5 mg-3 mg(2.5 mg base)/3 mL solution for nebulization inhalation Q6H RF: 0
[2020-09-28] MEDS: Magnesium Sulfate/H2O 2 GM/50 ML PIGGYBACK IV (09:50)
[2020-09-28] MEDS: Albuterol Sulfate (0.083%) 2.5 MG/3 ML VIAL.NEB 7.5 MG INHALE (10:00)
[2020-09-28 10:01] VITALS: PULSE 74; O2SAT 98
[2020-09-28 10:41] VITALS: BP 117/65; PULSE 105; RESP 20; O2SAT 100
== END 2020-09-28 12:50 | disposition home or self-care (01) ==
PROVIDERS: Emergency Provider Emergency Medicine Emergency Medical Services; PCP Internal Medicine
DX: J45.901 Unspecified asthma with (acute) exacerbation (principal); Z79.899 Other long term (current) drug therapy
CPT/HCPCS: 94640; 94644; 96365; 96366; 96375; 99284; J2930; J3475

== ENCOUNTER 2020-10-08 10:28 | Emergency (ER) | payer OTHER, SELFPAY ==
--- NOTE | ~2020-10-08 | CT_ITS ---
EXAMINATION: CT ABDOMEN AND PELVIS WITHOUT CONTRAST CLINICAL INFORMATION: Right flank pain. Question kidney stones. COMPARISON: 08/29/2014 TECHNIQUE: Multidetector volumetric imaging was performed from the superior aspect of the liver through the pubic symphysis. Sagittal and coronal reformatted images were obtained on the technologist's workstation. This CT examination was performed using dose optimization techniques as appropriate, variously including the following: *Automated exposure control *Adjustment of mA and/or kV according to patient size (this includes techniques or standardized protocols for targeted exams where dose is matched to indication/reason for exam; i.e. extremities or head) *Use of iterative reconstruction technique DLP: 433 mGy-cm FINDINGS: LUNG BASES: The visualized lung bases are unremarkable. LIVER, GALLBLADDER, AND BILIARY TREE: The liver is normal in size, shape, and attenuation. No focal hepatic lesion or biliary ductal dilatation is present. Gallbladder is not visualized, probably surgically absent. PANCREAS: Unremarkable. No obvious inflammatory changes. SPLEEN: Unremarkable. ADRENAL GLANDS: Unremarkable. KIDNEYS AND URETERS: No right hydroureteronephrosis. The distal left ureter is obscured by bowel, with no calculi in the expected course of the ureter. No left-sided hydronephrosis. No definite renal calculi identified. There is subtle nonspecific mild increased density in the region of the renal pyramids with respect to the parenchyma otherwise. No suspicious lesions identified. BLADDER: Underdistended. Unremarkable. No calculi within the bladder are seen. GASTROINTESTINAL TRACT: Moderate stool burden in the large colon. No colonic wall thickening or pericolonic inflammatory changes are seen. The stomach is nondistended. Nonspecific mild prominence of the proximal small bowel loops. No dilated small bowel loops are seen. Overall nonobstructive bowel gas pattern. The appendix is not identified. No albin inflammatory changes are seen in the right lower quadrant. ABDOMINAL WALL: No significant hernia is appreciated. LYMPH NODES: No lymphadenopathy is identified. VASCULAR: Normal caliber aorta. PELVIC VISCERA: Within normal limits. OSSEOUS STRUCTURES: No acute findings. Stable small sclerotic focus in the right ischial tuberosity. CT/CT abdomen pelvis wo con IMPRESSION: 1. Mild nonspecific increased density in the region of the renal pyramids bilaterally. No definite renal calculi otherwise seen. No hydronephrosis. No definite ureteral calculi identified, with the distal ureters obscured by bowel. 2. No acute findings identified in the abdomen or pelvis. Etiology of the patient's symptoms has not been determined. 3. The appendix is not visualized. No albin inflammatory changes are seen in the right lower quadrant. If there is concern for appendicitis, followup CT with oral and intravenous contrast could be considered. 4. Gallbladder is not visualized.
[2020-10-08 11:11] LABS: Glucose Urine UA NEG (NEG); PH 5.5 (5.0-8.0); Specific Gravity - Urine >= 1.030 (1.005-1.025); Urine Blood 3+ (NEG); Urine Ketones NEG (NEG); Urine Protein TRACE MG/DL (NEG-TRACE)
[2020-10-08 11:12] LABS: Leukocyte Esterase Urine NEG (NEG); Nitrite Urine NEG (NEG)
[2020-10-08 11:14] LABS: Appearance Urine CLOUDY; Color Urine YELLOW
[2020-10-08 11:25] LABS: Bacteria Urine 1+ /LPF; Mucus Urine 3+ /LPF; Squamous Epithelial Cell Urine 3+ /LPF
[2020-10-08 12:25] VITALS: BP 99/73; PULSE 71; RESP 18; TEMP 37.1; O2SAT 99; BMI 24.4
[2020-10-08 12:58] VITALS: BP 113/65; PULSE 77; RESP 16; TEMP 36.7; O2SAT 99
[2020-10-08] MEDS: ondansetron HCL 4 MG/2 ML VIAL IVPUSH ×2 (13:22→15:33)
[2020-10-08] MEDS: 0.9 % Sodium Chloride 1,000 ML 999 ML IV (13:22)
[2020-10-08 13:23] LABS: UPreg QC Valid YES; Urine Pregnancy NEGATIVE (NEGATIVE)
[2020-10-08 13:27] LABS: MANUAL DIFF FLAG NO
[2020-10-08 13:30] LABS: Basophils Absolute Auto 0.1 X10*3/uL (0.0-0.2); Basophils Percent Auto 0.8 % (0-2); Eosinophils Absolute Auto 0.6 X10*3/uL (0.0-0.4); Eosinophils Percent Auto 7.1 % (0-4); Hematocrit 41.4 % (37-47); Hemoglobin 13.8 g/dl (12.0-16.0); Imm Gran Abs Auto 0.02 X10*3/uL (0.00-0.03); Imm Gran Pct Auto 0.3 % (0.0-0.4); Lymphocytes Absolute Auto 2.2 X10*3/uL (1.2-4.9); Lymphocytes Percent Auto 27.9 % (20-40); Mean Corpuscular HGB Conc 33.3 g/dl (31.0-35.0); Mean Corpuscular Hemoglobin 31.4 pg (27.0-33.0); Mean Corpuscular Volume 94.1 fL (80-98); Mean Platelet Volume 10.4 fL (9.4-12.3); Monocytes Absolute Auto 0.5 X10*3/uL (0.1-1.2); Monocytes Percent Auto 6.2 % (2-11); Neutrophils Absolute Auto 4.5 X10*3/uL (2.0-8.3); Neutrophils Percent Auto 57.7 % (45-73); Platelet Count 222 X10*3/uL (160-400); Red Cell Distribution Width 12.7 % (11.0-16.0); White Blood Count 7.8 X10*3/uL (4.8-10.8)
--- NOTE | 2020-10-08 13:30 | ED.ABDPAIN ---
HPI - Abdominal Pain General Chief Complaint: Abdominal Pain Stated Complaint: kidney pain Time Seen by Provider: 10/08/20 12:33 Source: patient Mode of arrival: ambulatory Limitations: no limitations History of Present Illness HPI narrative: Patient presents to ED for left flank pain since last night. Patient denies right flank pain. Patient states nausea, and flank pain on movement of torso. Patient denies any chest pain, shortness of breath, chest pain on inspiration, recent trauma, recent surgery, control use, or history of blood clot. MD elicited complaint: abdominal pain and flank pain Related Data Home Medications Medication Instructions Recorded Confirmed ipratropium 0.5 mg-albuterol 3 mg ml INHALATION Q6H 05/11/20 09/09/20 (2.5 mg base)/3 mL nebulization soln montelukast 10 mg tablet 10 mg PO DAILY 05/11/20 09/09/20 Previous Rx's Medication Instructions Recorded fluticasone 232mcg-salmeterol 1 inh INHALATION BID 30 Days #1 ea 05/17/20 14mcg/actuation breath act,powder sensor acetaminophen [Tylenol Extra 500 mg PO Q6H PRN #20 tab 07/18/20 Strength] albuterol sulfate 90 mcg/actuation 1 puff PO Q4H PRN 30 Days #8.5 g 08/04/20 aerosol inhaler fluoxetine 10 mg capsule 10 mg PO DAILY #30 cap 09/07/20 phentermine 37.5 mg tablet 37.5 mg PO DAILY 30 Days #30 tab 09/09/20 albuterol sulfate 2.5 mg INHALATION Q6H #180 ml 09/28/20 prednisone 60 mg PO DAILY 5 Days #15 tab 09/28/20 cyclobenzaprine 10 mg PO TID PRN #18 tab 10/08/20 naproxen 500 mg PO BID PRN #20 tab 10/08/20 Allergies Allergy/AdvReac Type Severity Reaction Status Date / Time ibuprofen [From MOTRIN] AdvReac Intermediate N/V, Verified 10/08/20 12:25 vomiting Review of Systems Review of Systems Yes all other systems are reviewed and are negative Constitutional: Reports as per HPI and Reports no additional constitutional complaints Eyes: Reports as per HPI and Reports no additional eye complaints Reports system reviewed and no additional complaints, except as documented and Reports as per HPI Cardiovascular: Reports as per HPI and Reports no additional cardiovascular complaints Respiratory: Reports as per HPI and Reports no additional respiratory complaints Gastrointestinal: Reports as per HPI, Reports no additional gastrointestinal complaints and Denies abdominal pain Genitourinary: Reports no additional female genitourinary complaints and Reports as per HPI Musculoskeletal: Reports no additional musculoskeletal complaints, Reports as per HPI and Reports back pain (left lower flank) Reports system reviewed and no additional complaints, except as documented and Reports as per HPI Psychiatric: Reports no additional psychiatric complaints and Reports as per HPI Physical Exam Vital Signs: Vital Signs: Last Vital Signs Temp 98.5 F 10/08/20 15:05 Pulse 66 10/08/20 15:05 Resp 17 10/08/20 15:05 BP 112/58 L 10/08/20 15:05 Pulse Ox 100 10/08/20 15:05 Body Mass Index 24.4 Const: General: cooperative, healthy appearing, comfortable, no acute distress, well developed, alert, awake and Physically active Orientation/consciousness: patient oriented x3 HENMT: Head: Yes normal to inspection, Yes No palpable skull fracture present, Yes normocephalic, Yes atraumatic, No abrasion, No Ch's sign, No contusion, No cranial bruits, No hematoma, No laceration, No occipital foramen tenderness, No palpable skull fracture, No raccoon eyes, No scalp tenderness and No periorbital ecchymosis Eyes: General: appearance normal, both eyes and all related structures Neck: Neck: Yes normal visual inspection, Yes full ROM, Yes no lymphadenopathy, Yes no meningeal signs, Yes trachea midline and Yes supple Chest: Other: negative for any posterior rib tenderness. Chest palpation & inspection: normal inspection of the chest and normal palpation of entire chest wall Resp: Effort & Inspection: normal respiratory effort and able to speak in complete sentences Cardio: Jugular venous distension: no JVD Heart sounds: S1 normal heart sound present and S2 normal heart sound present GI: Inspection: Yes normal to inspection and No abdominal wall ecchymosis Palpation (GI): Soft to palpation, not firm, nontender, no guarding and not rigid : General: Yes CVA tenderness (positive left lower flank) Back/Spine/Pelvis: Back: CVA tenderness (positive left lower flank) Skin: General skin exam: no rashes or lesions noted and elasticity normal Neuro: General: patient oriented x3, no meningeal signs and CN's II-XI intact bilaterally Cranial nerves: Yes CN's II-XII intact bilaterally Extrem: General: Yes normal to inspection and Yes full ROM Psych: Appearance: grossly normal, well kempt and not disheveled Course Course Course Narrative: History physical exam kidney stones vs. muscular strain Patient will be given labs, having pain meds, most likely be sent for CT to rule out kidney stone. Reevaluation(s) Reevaluation #1: Due to urine blood and left flank pain patient is sent for CT scan to rule out kidney stones. CT scan came back negative for kidney stones, hydronephrosis, or hydroureter. On re-evaluation patient states once again pain is in left lower flank area and worse on movement. If the physical exam indicate muscular pain. Will give Toradol and Flexeril. Patient states she is taking Aleve in the past with no symptom. Right flank history placed in CT scan order was placed in a row. Should have been left flank pain. Time: 15:24 Reevaluation #2: Patient's pain resolved after receiving Toradol and Flexeril. Patient passed PO challenge. patient states blood in UA is due to her being on her menstruation. Not suspecting PE. Perc score is 0 Time: 15:59 MDM - Abdominal Pain MDM Narrative Medical decision making narrative: Left flank pain. Muscular back pain Lab Data Result diagrams: 10/08/20 13:22 10/08/20 13:22 Labs: Lab Results 10/08/20 10/08/20 10/08/20 Range/Units 10:41 10:41 13:22 WBC 7.8 (4.8-10.8) X10*3/uL RBC 4.40 (4.20-5.50) X10*6/uL Hgb 13.8 (12.0-16.0) g/dl Hct 41.4 (37-47) % MCV 94.1 (80-98) fL MCH 31.4 (27.0-33.0) pg MCHC 33.3 (31.0-35.0) g/dl RDW 12.7 (11.0-16.0) % Plt Count 222 (160-400) X10*3/uL MPV 10.4 (9.4-12.3) fL Immature Gran % (Auto) 0.3 (0.0-0.4) % Neut % (Auto) 57.7 (45-73) % Lymph % (Auto) 27.9 (20-40) % [place] % (Auto) 6.2 (2-11) % Eos % (Auto) 7.1 H (0-4) % Baso % (Auto) 0.8 (0-2) % Lymph # (Auto) 2.2 (1.2-4.9) X10*3/uL [place] # (Auto) 0.5 (0.1-1.2) X10*3/uL Eos # (Auto) 0.6 H (0.0-0.4) X10*3/uL Baso # (Auto) 0.1 (0.0-0.2) X10*3/uL Abs Immat Gran (auto) 0.02 (0.00-0.03) X10*3/uL Absolute Neuts (auto) 4.5 (2.0-8.3) X10*3/uL Absolute Nucleated RBC 0.000 (0.0-0.012) X10*3/uL Nucleated RBC % (auto) 0.0 (0.0-0.2) /100WBC PT (10.8-13.0) SEC INR (0.9-1.1) APTT (24.1-38.0) SEC Sodium (135-145) mmol/L Potassium (3.3-5.1) mmol/L Chloride (96-108) mmol/L Carbon Dioxide (22-29) mmol/L Anion Gap (12-20) BUN (9-16) mg/dL Creatinine (0.5-1.4) mg/dL Estim Creat Clear Calc Estimated GFR Random Glucose (60-115) mg/dL Calcium (8.4-10.2) mg/dL Total Bilirubin (0.0-1.0) mg/dL Direct Bilirubin (0.0-0.5) mg/dL AST (5-31) U/L ALT (0-31) U/L Alkaline Phosphatase (39-117) U/L Total Protein (6.5-8.0) g/dL Albumin (3.5-5.0) g/dL Lipase (8-78) U/L Beta HCG, Quant mIU/mL Urine Color YELLOW Urine Appearance CLOUDY Urine pH 5.5 (5.0-8.0) Ur Specific [place] >= 1.030 H (1.005-1.025) Urine Protein TRACE (NEG-TRACE) MG/DL Urine Glucose (UA) NEG (NEG) MG/DL Urine Ketones NEG (NEG) MG/DL Urine Blood 3+ H (NEG) Urine Nitrite NEG (NEG) Ur Leukocyte Esterase NEG (NEG) Urine RBC 1-4 (0) /HPF Urine WBC 1-4 (0-4) /HPF Ur Squamous Epith Cells 3+ /LPF Urine Bacteria 1+ /LPF Urine Mucus 3+ /LPF Urine Test NEGATIVE (NEGATIVE) 10/08/20 10/08/20 Range/Units 13:22 13:22 WBC (4.8-10.8) X10*3/uL RBC (4.20-5.50) X10*6/uL Hgb (12.0-16.0) g/dl Hct (37-47) % MCV (80-98) fL MCH (27.0-33.0) pg MCHC (31.0-35.0) g/dl RDW (11.0-16.0) % Plt Count (160-400) X10*3/uL MPV (9.4-12.3) fL Immature Gran % (Auto) (0.0-0.4) % Neut % (Auto) (45-73) % Lymph % (Auto) (20-40) % [place] % (Auto) (2-11) % Eos % (Auto) (0-4) % Baso % (Auto) (0-2) % Lymph # (Auto) (1.2-4.9) X10*3/uL [place] # (Auto) (0.1-1.2) X10*3/uL Eos # (Auto) (0.0-0.4) X10*3/uL Baso # (Auto) (0.0-0.2) X10*3/uL Abs Immat Gran (auto) (0.00-0.03) X10*3/uL Absolute Neuts (auto) (2.0-8.3) X10*3/uL Absolute Nucleated RBC (0.0-0.012) X10*3/uL Nucleated RBC % (auto) (0.0-0.2) /100WBC PT 11.3 (10.8-13.0) SEC INR 1.0 (0.9-1.1) APTT 28.7 (24.1-38.0) SEC Sodium 141 (135-145) mmol/L Potassium 4.3 (3.3-5.1) mmol/L Chloride 110 H (96-108) mmol/L Carbon Dioxide 25 (22-29) mmol/L Anion Gap 10 L (12-20) BUN 9 (9-16) mg/dL Creatinine 0.68 (0.5-1.4) mg/dL Estim Creat Clear Calc 98.9 Estimated GFR > 60 Random Glucose 82 (60-115) mg/dL Calcium 8.5 (8.4-10.2) mg/dL Total Bilirubin 0.7 (0.0-1.0) mg/dL Direct Bilirubin 0.3 (0.0-0.5) mg/dL AST 16 (5-31) U/L ALT 17 (0-31) U/L Alkaline Phosphatase 79 (39-117) U/L Total Protein 6.8 (6.5-8.0) g/dL Albumin 3.9 (3.5-5.0) g/dL Lipase 9 (8-78) U/L Beta HCG, Quant < 2 mIU/mL Urine Color Urine Appearance Urine pH (5.0-8.0) Ur Specific [place] (1.005-1.025) Urine Protein (NEG-TRACE) MG/DL Urine Glucose (UA) (NEG) MG/DL Urine Ketones (NEG) MG/DL Urine Blood (NEG) Urine Nitrite (NEG) Ur Leukocyte Esterase (NEG) Urine RBC (0) /HPF Urine WBC (0-4) /HPF Ur Squamous Epith Cells /LPF Urine Bacteria /LPF Urine Mucus /LPF Urine Test (NEGATIVE) Discharge Plan Discharge Clinical Impression: Acute left flank pain, Strain of muscle, fascia and tendon of lower back, initial encounter Patient Disposition: Home, Self-Care Instructions: Low Back Strain (ED), Flank Pain (ED) Additional Instructions: Return to the ED for upper back/posterior chest pain with shortness of breath, shortness of breath on inspiration, paralysis of lower extremities, dysuria, hematuria, fever, chills, swelling of lower extremity, calf pain, severe abdominal pain, or any other concerning symptoms Prescriptions: New naproxen 500 mg tablet 500 mg PO BID PRN (Reason: pain) Qty: 20 RF: 0 cyclobenzaprine 10 mg tablet 10 mg PO TID PRN (Reason: muscle spasm) Qty: 18 RF: 0 No Action albuterol sulfate 90 mcg/actuation HFA aerosol inhaler 1 puff PO Q4H PRN (Reason: bronchospasm) 30 Days Qty: 8.5 RF: 2 fluoxetine 10 mg capsule 10 mg PO DAILY Qty: 30 RF: 6 prednisone 20 mg tablet 60 mg PO DAILY 5 Days Qty: 15 RF: 0 albuterol sulfate 2.5 mg /3 mL (0.083 %) solution for nebulization 2.5 mg inhalation Q6H Qty: 180 RF: 0 acetaminophen [Tylenol Extra Strength] 500 mg tablet 500 mg PO Q6H PRN (Reason: pain or fever) Qty: 20 RF: 0 phentermine 37.5 mg tablet 37.5 mg PO DAILY 30 Days Qty: 30 RF: 0 AirDuo Digihaler 232-14 mcg/actuation aero powdr breath act w/sensor 1 inh inhalation BID 30 Days Qty: 1 RF: 6 montelukast 10 mg tablet 10 mg PO DAILY RF: 0 ipratropium-albuterol 0.5 mg-3 mg(2.5 mg base)/3 mL solution for nebulization inhalation Q6H RF: 0 Referrals: Mallorie Cristina MD [Primary Care Provider] - 2 days (Left flank pain. UA negative for UTI. CT scan negative for any kidney stones or colitis. CBC normal. Electrolytes normal. negative) Discharge Date/Time: 10/08/20 16:58 Print Language: Tamazight [facility] Past Medical History Medical History Asthma Depression Eczema Rhinitis Weight gain Surgical History History of cholecystectomy History of tonsillectomy and adenoidectomy Family History Family History Mother Asthma Bipolar 1 disorder Hypertension Schizophrenia Father No problems noted. Maternal Grandmother Hypertension Family/Other Breast cancer Social History Social History Alcohol intake: unknown Smoking Status: Smoker, status unknown Use of substances other than those prescribed or required for medical reasons: Unknown Advance Directives: No Advance Directives Information Provided: No
[2020-10-08 13:36] LABS: Prothrombin Time 11.3 SEC (10.8-13.0)
[2020-10-08 13:38] LABS: Partial Thromboplastin Time 28.7 SEC (24.1-38.0)
[2020-10-08 13:53] LABS: Alanine Aminotransferase 17 U/L (0-31); Albumin Level 3.9 g/dL (3.5-5.0); Alkaline Phosphatase 79 U/L (39-117); Anion Gap 10 (12-20); Aspartate Amino Transferase 16 U/L (5-31); Bilirubin Direct 0.3 mg/dL (0.0-0.5); Bilirubin Total 0.7 mg/dL (0.0-1.0); Blood Urea Nitrogen 9 mg/dL (9-16); Calcium 8.5 mg/dL (8.4-10.2); Carbon Dioxide 25 mmol/L (22-29); Chloride 110 mmol/L (96-108); Creatinine Clr Calc Pharmacy 98.9; Estimated Glomerular Filt Rate > 60; Glucose Random 82 mg/dL (60-115); Lipase 9 U/L (8-78); Potassium 4.3 mmol/L (3.3-5.1); Sodium 141 mmol/L (135-145); Total Protein 6.8 g/dL (6.5-8.0)
[2020-10-08] MEDS: Morphine Sulfate 2 MG/ML CARTRIDGE IVPUSH (13:57)
[2020-10-08 14:02] LABS: HCG Quantitative < 2 mIU/mL
[2020-10-08 15:05] VITALS: BP 112/58; PULSE 66; RESP 17; TEMP 36.9; O2SAT 100
[2020-10-08] MEDS: Ketorolac Tromethamine 30 MG/ML VIAL IVPUSH (15:33)
[2020-10-08] MEDS: Cyclobenzaprine HCl 10 MG TABLET PO (15:51)
== END 2020-10-08 16:58 | disposition home or self-care (01) ==
PROVIDERS: Physician Assistant; Emergency Provider Emergency Medicine; PCP Internal Medicine
DX: S39.012A Strain of muscle, fascia and tendon of lower back, initial encounter (principal); X58.XXXA Exposure to other specified factors, initial encounter; R10.9 Unspecified abdominal pain; R11.0 Nausea; J45.909 Unspecified asthma, uncomplicated; Y93.9 Activity, unspecified; Y92.9 Unspecified place or not applicable; Y99.9 Unspecified external cause status; Z79.899 Other long term (current) drug therapy
CPT/HCPCS: 36415; 74176; 80053; 80076; 81001; 81025; 82248; 83690; 84702; 85025; 85610; 85730; 96361; 96374; 96375; 96376; 99284; J1885; J2270; J2405

== ENCOUNTER 2020-10-10 13:10 | Outpatient (REF) | payer OTHER, SELFPAY ==
[2020-10-10 13:48] LABS: MANUAL DIFF FLAG NO
[2020-10-10 13:57] LABS: Basophils Absolute Auto 0.1 X10*3/uL (0.0-0.2); Basophils Percent Auto 0.5 % (0-2); Eosinophils Absolute Auto 0.2 X10*3/uL (0.0-0.4); Eosinophils Percent Auto 1.9 % (0-4); Hematocrit 41.1 % (37-47); Hemoglobin 13.5 g/dl (12.0-16.0); Imm Gran Abs Auto 0.03 X10*3/uL (0.00-0.03); Imm Gran Pct Auto 0.3 % (0.0-0.4); Lymphocytes Absolute Auto 2.4 X10*3/uL (1.2-4.9); Lymphocytes Percent Auto 23.1 % (20-40); Mean Corpuscular HGB Conc 32.8 g/dl (31.0-35.0); Mean Corpuscular Hemoglobin 30.6 pg (27.0-33.0); Mean Corpuscular Volume 93.2 fL (80-98); Mean Platelet Volume 10.6 fL (9.4-12.3); Monocytes Absolute Auto 0.7 X10*3/uL (0.1-1.2); Monocytes Percent Auto 6.6 % (2-11); Neutrophils Absolute Auto 6.9 X10*3/uL (2.0-8.3); Neutrophils Percent Auto 67.6 % (45-73); Platelet Count 267 X10*3/uL (160-400); Red Blood Count 4.41 X10*6/uL (4.20-5.50); Red Cell Distribution Width 12.4 % (11.0-16.0); White Blood Count 10.2 X10*3/uL (4.8-10.8)
== END 2020-10-10 13:11 | disposition home or self-care (01) ==
LOC: HO.LAB 13:10
PROVIDERS: Absent Provider Internal Medicine Pulmonary Disease; PCP Internal Medicine; Visit Provider Internal Medicine
DX: R63.5 Abnormal weight gain (principal); R39.9 Unspecified symptoms and signs involving the genitourinary system; Z91.09 Other allergy status, other than to drugs and biological substances
CPT/HCPCS: 36415; 82785; 84443; 85025; 86003

== ENCOUNTER → 2020-10-15 10:00 | Outpatient (BNVA) | payer OTHER, SELFPAY | PROVIDERS: PCP Internal Medicine; Visit Provider Internal Medicine Pulmonary Disease ==

== ENCOUNTER 2020-10-24 10:16 | Emergency (ER) | payer OTHER, SELFPAY ==
--- NOTE | ~2020-10-24 | XR_ITS ---
EXAMINATION: XR CHEST CLINICAL INFORMATION: Cough. COMPARISON: Chest x-ray 08/13/2020. TECHNIQUE: Frontal view of the chest was obtained. FINDINGS: No significant abnormality is noted involving the heart, lungs, mediastinum, bony thorax or soft tissues. XR/XR chest 1V IMPRESSION: Unremarkable chest examination.
[2020-10-24 10:45] VITALS: BP 160/90; PULSE 110; RESP 24; TEMP 36.6; O2SAT 95; BMI 27.4
[2020-10-24] MEDS: Albuterol Sulfate (0.083%) 2.5 MG/3 ML VIAL.NEB 5 MG INHALE (11:16)
[2020-10-24 11:18] VITALS: PULSE 90; O2SAT 96
[2020-10-24] MEDS: predniSONE 20 MG TABLET 60 MG PO (11:29)
[2020-10-24 12:22] LABS: Influenza A PCR NEGATIVE (Negative); Influenza B PCR NEGATIVE (Negative); Resp Syncy Virus RNA Qual PCR NEGATIVE (Negative); SARS COV2 PCR INHOUSE NEGATIVE (Negative)
--- NOTE | 2020-10-24 12:57 | ED.ASTHMA ---
HPI - Asthma General Chief Complaint: Asthma Stated Complaint: asthma Time Seen by Provider: 10/24/20 10:45 Source: patient Mode of arrival: ambulatory Limitations: no limitations History of Present Illness HPI Narrative: 25-year-old female past medical history significant for asthma, depression, eczema with surgical history of cholecystectomy, tonsillectomy and adenoidectomy presents ambulatory via triage with complaint of asthma exacerbation states she is on home inhaler and other asthma medications that have not helped and today she is having productive cough with wheezing. She denies any fever, chest pain or shortness of breath. MD complaint: asthma attack Onset (ago): day(s) Severity: mild Associated symptoms: productive cough Asthma History: history of frequent attacks Treatments Prior to Arrival: inhaled bronchodilator Related Data Home Medications Medication Instructions Recorded Confirmed ipratropium 0.5 mg-albuterol 3 mg ml INHALATION Q6H 05/11/20 10/10/20 (2.5 mg base)/3 mL nebulization soln montelukast 10 mg tablet 10 mg PO DAILY 05/11/20 10/10/20 Previous Rx's Medication Instructions Recorded fluticasone 232mcg-salmeterol 1 inh INHALATION BID 30 Days #1 ea 05/17/20 14mcg/actuation breath act,powder sensor acetaminophen [Tylenol Extra 500 mg PO Q6H PRN #20 tab 07/18/20 Strength] albuterol sulfate 90 mcg/actuation 1 puff PO Q4H PRN 30 Days #8.5 g 08/04/20 aerosol inhaler fluoxetine 10 mg capsule 10 mg PO DAILY #30 cap 09/07/20 phentermine 37.5 mg tablet 37.5 mg PO DAILY 30 Days #30 tab 09/09/20 albuterol sulfate 2.5 mg INHALATION Q6H #180 ml 09/28/20 prednisone 60 mg PO DAILY 5 Days #15 tab 09/28/20 cyclobenzaprine 10 mg PO TID PRN #18 tab 10/08/20 naproxen 500 mg PO BID PRN #20 tab 10/08/20 benralizumab 30 mg/mL subcutaneous See Rx Instructions SUBCUT Q8W 28 10/14/20 syringe Days #1 ml benzonatate 100 mg capsule 100 mg PO BID PRN 5 Days #10 cap 10/21/20 benzonatate 200 mg capsule 200 mg PO TID PRN 7 Days #21 cap 10/22/20 azithromycin [Zithromax Z-Kyrie] 250 mg PO DAILY 5 Days #5 tab 10/24/20 prednisone 40 mg PO DAILY #10 tab 10/24/20 Allergies Allergy/AdvReac Type Severity Reaction Status Date / Time ibuprofen [From MOTRIN] AdvReac Intermediate N/V, Verified 10/15/20 10:00 vomiting Review of Systems Review of Systems: Constitutional: No Weight loss, No Fever, No Chills, No Night Sweats, No Fatigue, No Malaise ENT/Mouth: No Hearing loss, No Ear Pain, No Nasal Congestion, No Sinus Pain, No Hoarseness, No sore throat, No Rhinorrhea, No Swallowing Difficulty Eyes: No Eye Pain, No Swelling, No Redness, No Foreign Body, No Discharge, No Vision Changes Cardiovascular: No Chest Pain, No SOB, No Dyspnea on Exertion, No Orthopnea, No Edema, No Palpitations Respiratory: + Cough, + Sputum, + Wheezing, No Smoke Exposure, No Dyspnea Gastrointestinal: No Nausea, No Vomiting, No Diarrhea, No Constipation, No abdominal Pain, No Hematochezia, No Melena Genitourinary: no irregular bleeding, No Dysuria, No Urinary Frequency, No Hematuria, No Urinary Incontinence, No Urgency, No Flank Pain, No Urinary Flow Changes, No Hesitancy Musculoskeletal: No joint pain, No Myalgias, No Joint Swelling Skin: No Skin Lesions, No rash Neuro: No Weakness, No Numbness, No Paresthesias, No Loss of Consciousness, No Dizziness, No Headache Psych: No Social Issues Heme/Lymph: No Bruising, No Bleeding,No Lymphadenopathy Endocrine: No Polyuria, No Polydipsia, No Temperature Intolerance Yes all other systems are reviewed and are negative [facility] Past Medical History Medical History (Updated 10/24/20 @ 13:11 by Vamshi Messina NP) Abdominal pain Abnormal renal finding Asthma Depression Eczema Rhinitis Weight gain Surgical History History of cholecystectomy History of tonsillectomy and adenoidectomy Family History Family History Mother Asthma Bipolar 1 disorder Hypertension Schizophrenia Father No problems noted. Maternal Grandmother Hypertension Family/Other Breast cancer Social History Social History Alcohol intake: unknown Smoking Status: Never smoker Advance Directives: No Advance Directives Information Provided: No Physical Exam Vital Signs: Vital Signs: Last Vital Signs Temp 97.8 F 10/24/20 10:45 Pulse 90 10/24/20 11:18 Resp 24 H 10/24/20 10:45 BP 160/90 H 10/24/20 10:45 Pulse Ox 95 10/24/20 10:45 Body Mass Index 27.4 Reviewed Const: General: cooperative and anxious; No acute distress or intoxicated appearing Nutritional Appearance: average body habitus Orientation/consciousness: patient oriented x3 HENMT: Head: Yes normal to inspection Ears: hearing grossly normal bilaterally Eyes: General: appearance normal, both eyes and all related structures Visual Hill: normal visual hill by confrontation Neck: Neck: Yes normal visual inspection, No positive Brudzinski's sign, No positive Kernig's sign and No tender Thyroid: Thyroid normal Chest: Chest palpation & inspection: normal inspection of the chest Resp: Effort & Inspection: normal respiratory effort Auscultation: wheezes Cardio: Jugular venous distension: no JVD GI: Inspection: Yes normal to inspection Percussion: Yes normal to percussion Auscultation: normal bowel sounds : General: Yes no CVA tenderness Back/Spine/Pelvis: Back: no CVA tenderness Skin: General skin exam: no rashes or lesions noted Neuro: General: patient oriented x3 Extrem: General: Yes normal to inspection Course Course Course Narrative: [place] better after 5 mg of albuterol neb lung sounds clear to auscultation now she feels better. COVID RSV flu is negative. Given her history advised her that I recommend deferring chest x-ray however she states she would like and chest x-ray given that she did not get 1 last time she was here and she would feel more better given that she has a productive cough. Risk and benefits of radiation versus empiric treatment was reviewed with her she requested thus chest x-ray was done which showed no acute findings. Will give her short course prednisone and states she feels like she needs antibiotics will give her Z-Kyrie. She does see pulmonology here whom she will call for f/u. Walking pulse ox 98% without tachycardia or dyspnea. MDM - Asthma Lab Data Labs: Lab Results 10/24/20 Range/Units 11:32 Coronavirus (PCR) NEGATIVE (Negative) Influenza Type A (PCR) NEGATIVE (Negative) Influenza Type B (PCR) NEGATIVE (Negative) RSV RNA Qual (PCR) NEGATIVE (Negative) Discharge Plan Discharge Clinical Impression: Asthma Qualifiers: Asthma severity: unspecified severity Asthma persistence: intermittent Asthma complication type: with acute exacerbation Qualified Code(s): J45.21 - Mild intermittent asthma with (acute) exacerbation Patient Disposition: Home, Self-Care Instructions: Asthma (ED), How to Use a Nebulizer (ED) Additional Instructions: Supportive care as discussed Take medication as prescribed 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 Today her chest x-ray as well as her COVID-19, RSV, flu test were negative Thank you Prescriptions: New prednisone 20 mg tablet 40 mg PO DAILY Qty: 10 RF: 0 azithromycin [Zithromax Z-Kyrie] 250 mg tablet 250 mg PO DAILY 5 Days Qty: 5 RF: 0 No Action albuterol sulfate 90 mcg/actuation HFA aerosol inhaler 1 puff PO Q4H PRN (Reason: bronchospasm) 30 Days Qty: 8.5 RF: 2 fluoxetine 10 mg capsule 10 mg PO DAILY Qty: 30 RF: 6 Fasenra 30 mg/mL syringe See Rx Instructions subcut Q8W 28 Days Qty: 1 RF: 12 benzonatate [Tessalon Perles] 100 mg capsule 100 mg PO BID PRN (Reason: cough) 5 Days Qty: 10 RF: 0 benzonatate 200 mg capsule 200 mg PO TID PRN (Reason: cough) 7 Days Qty: 21 RF: 0 prednisone 20 mg tablet 60 mg PO DAILY 5 Days Qty: 15 RF: 0 albuterol sulfate 2.5 mg /3 mL (0.083 %) solution for nebulization 2.5 mg inhalation Q6H Qty: 180 RF: 0 naproxen 500 mg tablet 500 mg PO BID PRN (Reason: pain) Qty: 20 RF: 0 cyclobenzaprine 10 mg tablet 10 mg PO TID PRN (Reason: muscle spasm) Qty: 18 RF: 0 acetaminophen [Tylenol Extra Strength] 500 mg tablet 500 mg PO Q6H PRN (Reason: pain or fever) Qty: 20 RF: 0 phentermine 37.5 mg tablet 37.5 mg PO DAILY 30 Days Qty: 30 RF: 0 AirDuo Digihaler 232-14 mcg/actuation aero powdr breath act w/sensor 1 inh inhalation BID 30 Days Qty: 1 RF: 6 montelukast 10 mg tablet 10 mg PO DAILY RF: 0 ipratropium-albuterol 0.5 mg-3 mg(2.5 mg base)/3 mL solution for nebulization inhalation Q6H RF: 0 Referrals: Ric Douglass MD [Physician] - 3 days Mallorie Cristina MD [Primary Care Provider] - 1 week Interventions: ED Discharge Assessment Last Done: 10/24/20 13:24 Discharge Date/Time: 10/24/20 13:24
== END 2020-10-24 13:24 | disposition home or self-care (01) ==
PROVIDERS: Nurse Practitioner Primary Care; Emergency Provider Emergency Medicine Emergency Medical Services; PCP Internal Medicine
DX: J45.21 Mild intermittent asthma with (acute) exacerbation (principal); Z20.822 Contact with and (suspected) exposure to COVID-19; Z79.899 Other long term (current) drug therapy
CPT/HCPCS: 0241U; 36415; 71045; 94640; 99283; 99284

== ENCOUNTER 2020-11-12 09:26 | Outpatient (REF) | payer OTHER, SELFPAY | END 2020-11-12 09:27 | disposition home or self-care (01) | LOC: HO.MDS 09:26 | PROVIDERS: PCP Internal Medicine; Visit Provider Internal Medicine Pulmonary Disease | DX: J45.50 Severe persistent asthma, uncomplicated (principal) | CPT/HCPCS: 96372; J0517 ==

== ENCOUNTER 2020-12-11 09:04 | Outpatient (REF) | payer OTHER, SELFPAY | END 2020-12-11 09:05 | disposition home or self-care (01) | LOC: HO.MDS 09:04 | PROVIDERS: PCP Internal Medicine; Visit Provider Internal Medicine Pulmonary Disease | DX: J45.50 Severe persistent asthma, uncomplicated (principal) | CPT/HCPCS: 96372; J0517 ==

== ENCOUNTER 2021-01-09 09:01 | Outpatient (REF) | payer OTHER, SELFPAY | END 2021-01-09 09:02 | disposition home or self-care (01) | LOC: HO.MDS 09:01 | PROVIDERS: PCP Internal Medicine; Visit Provider Internal Medicine Pulmonary Disease | DX: J45.50 Severe persistent asthma, uncomplicated (principal) | CPT/HCPCS: 96372; J0517 ==

== ENCOUNTER 2021-03-06 12:26 | Outpatient (REF) | payer OTHER, SELFPAY | END 2021-03-06 12:27 | disposition home or self-care (01) | LOC: HO.MDS 12:26 | PROVIDERS: PCP Internal Medicine; Visit Provider Internal Medicine Pulmonary Disease | DX: J45.50 Severe persistent asthma, uncomplicated (principal) | CPT/HCPCS: 96372; J0517 ==

== ENCOUNTER 2021-04-16 08:21 | Emergency (ER) | payer OTHER, SELFPAY ==
[2021-04-16 08:40] VITALS: BP 128/69; PULSE 94; RESP 18; TEMP 36.8; O2SAT 100; BMI 25.4
--- NOTE | 2021-04-16 09:14 | ED_ITS ---
HPI - Abdominal Pain General Chief Complaint: Abdominal Pain Stated Complaint: vomiting Time Seen by Provider: 04/16/21 08:58 Source: patient Mode of arrival: ambulatory Limitations: no limitations History of Present Illness HPI narrative: 26 y/o female with history of cholecystectomy, asthma, depression, s/p tubal ligation who presents to the ER from home with 3 days of nausea, vomiting, non-bloody diarrhea and epigastric abdominal pain. She reports the pain is intermittent and comes in waves. She has been unable to keep any food down and is just vomiting up bile. She reports multiple episodes of loose, watery brown stools for the last 3 days as well. No fever or chills. No sick contacts. She lives home with her 3 young children who are all at their baseline health. MD elicited complaint: abdominal pain Pertinent past history: none Onset (ago): day(s) (3) Pain Consistency: intermittent Location: epigastric Severity: moderate Pain scale (0-10): 7 Quality: stabbing and aching Radiation: none Migration to: no migration Exacerbating factors: eating and vomiting Relieving factors: nothing Associated symptoms: nausea, vomiting and diarrhea Related Data Home Medications Medication Instructions Recorded Confirmed ipratropium 0.5 mg-albuterol 3 mg ml INHALATION Q6H 05/11/20 10/10/20 (2.5 mg base)/3 mL nebulization soln montelukast 10 mg tablet 10 mg PO DAILY 05/11/20 10/10/20 Previous Rx's Medication Instructions Recorded fluticasone 232mcg-salmeterol 1 inh INHALATION BID 30 Days #1 ea 05/17/20 14mcg/actuation breath act,powder sensor (AirDuo Digihaler) acetaminophen 500 mg tablet 500 mg PO Q6H PRN #20 tab 07/18/20 (Tylenol Extra Strength) fluoxetine 10 mg capsule 10 mg PO DAILY #30 cap 09/07/20 albuterol sulfate 2.5 mg INHALATION Q6H #180 ml 09/28/20 prednisone 20 mg tablet 60 mg PO DAILY 5 Days #15 tab 09/28/20 cyclobenzaprine 10 mg tablet 10 mg PO TID PRN #18 tab 10/08/20 naproxen 500 mg tablet 500 mg PO BID PRN #20 tab 10/08/20 benralizumab 30 mg/mL subcutaneous See Rx Instructions SUBCUT Q8W 28 03/01/21 syringe (Fasenra) Days #1 ml benzonatate 100 mg capsule 100 mg PO BID PRN 5 Days #10 cap 10/21/20 (Tessalon Perlprakash) benzonatate 200 mg capsule 200 mg PO TID PRN 7 Days #21 cap 10/22/20 azithromycin 250 mg tablet 250 mg PO DAILY 5 Days #5 tab 10/24/20 (Zithromax Z-Kyrie) prednisone 20 mg tablet 40 mg PO DAILY #10 tab 10/24/20 albuterol sulfate 90 mcg/actuation 1 puff PO Q4H PRN 30 Days #8.5 g 11/28/20 aerosol inhaler phentermine 37.5 mg tablet 37.5 mg PO DAILY 30 Days #30 tab 01/06/21 omeprazole magnesium 20 mg 40 mg PO DAILY #14 tab 04/16/21 tablet,delayed release (Prilosec OTC) ondansetron 4 mg disintegrating 4 mg PO Q8H PRN #8 tab 04/16/21 tablet Allergies Allergy/AdvReac Type Severity Reaction Status Date / Time ibuprofen [From MOTRIN] AdvReac Intermediate N/V, Verified 10/15/20 10:00 vomiting Review of Systems Review of Systems Constitutional: No Fever, No Chills ENT/Mouth: No sore throat, No Rhinorrhea, No Swallowing Difficulty Cardiovascular: No Chest Pain, No SOB, No Orthopnea, No Edema Respiratory: No Cough, No Sputum, No Wheezing, No dyspnea Gastrointestinal: + Nausea, + Vomiting,+ Diarrhea, + abdominal Pain, No Hematochezia, No Melena Genitourinary: No Dysuria, No Urinary Frequency, No Hematuria Musculoskeletal: No joint pain, No Myalgias Skin: No Skin Lesions, No rash Neuro: No Weakness, No Numbness, No Dizziness, No Headache Psych: + Anxiety/Panic, No Depression Heme/Lymph: No Bruising, No Lymphadenopathy Endocrine: No Polyuria, No Polydipsia Physical Exam Vital Signs: Vital Signs: Last Vital Signs Temp 98.2 F 04/16/21 08:40 Pulse 94 04/16/21 08:40 Resp 18 04/16/21 08:40 BP 128/69 04/16/21 08:40 Pulse Ox 100 04/16/21 08:40 Body Mass Index 25.4 Appearance: Alert. Oriented X3. No acute distress. Eyes: Pupils equal, round and reactive to light. ENT: Pharynx normal. Neck: Normal inspection. Neck supple. CVS: Normal heart rate and rhythm. Pulses normal. Respiratory: No respiratory distress. Breath sounds normal. Abdomen: Soft with mild epigastric tenderness, no rebound or guarding. +BS x4 Skin: Skin warm and dry. Normal skin color. Normal skin turgor. No rashes. Extremities: No lower extremity edema. Neuro: Oriented X 3. No motor deficit. No sensory deficit. Course Course Course Narrative: 26 y/o female presenting with 3 days of N/V/D and epigastric abdominal pain. She is anxious because she has been unable to eat. Her VS are stable. She has some tenderness on exam only in epigastric area, suspect gastritis. Will check labs, hydrate, give IV antiemetics and pain control. Will reassess. Reevaluation(s) Reevaluation #1: Labs showing mild anion gap of 21, likely due to starvation ketosis with poor PO intake. Lactic acid is normal. No significant electrolyte abnormality. She was given 2 L IVF. She feels better. She is tolerating PO. She is stable for discharge home with supportive care for probable gastroenteritis. MDM - Abdominal Pain Lab Data Result diagrams: 04/16/21 09:28 04/16/21 09:28 Labs: Lab Results 04/16/21 04/16/21 04/16/21 Range/Units 09:28 09:28 09:28 WBC 6.3 (4.8-10.8) X10*3/uL RBC 4.10 L (4.20-5.50) X10*6/uL Hgb 12.6 (12.0-16.0) g/dl Hct 37.2 (37-47) % MCV 90.7 (80-98) fL MCH 30.7 (27.0-33.0) pg MCHC 33.9 (31.0-35.0) g/dl RDW 15.3 (11.0-16.0) % Plt Count 183 D (160-400) X10*3/uL MPV 11.1 (9.4-12.3) fL Immature Gran % (Auto) 0.3 (0.0-0.4) % Neut % (Auto) 82.2 H (45-73) % Lymph % (Auto) 11.6 L (20-40) % [place] % (Auto) 5.7 (2-11) % Eos % (Auto) 0.0 (0-4) % Baso % (Auto) 0.2 (0-2) % Lymph # (Auto) 0.7 L (1.2-4.9) X10*3/uL [place] # (Auto) 0.4 (0.1-1.2) X10*3/uL Eos # (Auto) 0.0 (0.0-0.4) X10*3/uL Baso # (Auto) 0.0 (0.0-0.2) X10*3/uL Abs Immat Gran (auto) 0.02 (0.00-0.03) X10*3/uL Absolute Neuts (auto) 5.2 (2.0-8.3) X10*3/uL Absolute Nucleated RBC 0.000 (0.0-0.012) X10*3/uL Nucleated RBC % (auto) 0.0 (0.0-0.2) /100WBC Sodium 138 (135-145) mmol/L Potassium 4.0 (3.3-5.1) mmol/L Chloride 104 (96-108) mmol/L Carbon Dioxide 17 L (22-29) mmol/L Anion Gap 21 H (12-20) BUN 7 L (9-16) mg/dL Creatinine 0.71 (0.5-1.4) mg/dL Estim Creat Clear Calc 95.6 Estimated GFR > 60 Random Glucose 75 (60-115) mg/dL Lactic Acid (0.5-2.0) mmol/L Calcium 8.9 (8.4-10.2) mg/dL Magnesium 2.0 (1.6-2.6) mg/dL Total Bilirubin 0.9 (0.0-1.0) mg/dL Direct Bilirubin 0.3 (0.0-0.5) mg/dL AST 21 (5-31) U/L ALT 14 (0-31) U/L Alkaline Phosphatase 67 (39-117) U/L Total Protein 7.3 (6.5-8.0) g/dL Albumin 4.2 (3.5-5.0) g/dL Lipase 6 L (8-78) U/L Urine Color Urine Appearance Urine pH (5.0-8.0) Ur Specific [place] (1.005-1.025) Urine Protein (NEG-TRACE) MG/DL Urine Glucose (UA) (NEG) MG/DL Urine Ketones (NEG) MG/DL Urine Blood (NEG) Urine Nitrite (NEG) Ur Leukocyte Esterase (NEG) Urine RBC (0) /HPF Urine WBC (0-4) /HPF Ur Squamous Epith Cells /LPF Urine Bacteria /LPF Urine Mucus /LPF Urine Test (NEGATIVE) Urine Opiates Screen (Not Detect) Urine Fentanyl Screen (Not Detect) Ur Barbiturates Screen (Not Detect) Ur Phencyclidine Scrn (Not Detect) Ur Amphetamines Screen (Not Detect) U Benzodiazepines Scrn (Not Detect) Urine Cocaine Screen (Not Detect) U Marijuana (THC) Screen (Not Detect) COVID-19 ([facility]) Negative (Negative) COVID-19 Clin Com See Note 04/16/21 04/16/21 04/16/21 Range/Units 09:28 09:28 09:29 WBC (4.8-10.8) X10*3/uL RBC (4.20-5.50) X10*6/uL Hgb (12.0-16.0) g/dl Hct (37-47) % MCV (80-98) fL MCH (27.0-33.0) pg MCHC (31.0-35.0) g/dl RDW (11.0-16.0) % Plt Count (160-400) X10*3/uL MPV (9.4-12.3) fL Immature Gran % (Auto) (0.0-0.4) % Neut % (Auto) (45-73) % Lymph % (Auto) (20-40) % [place] % (Auto) (2-11) % Eos % (Auto) (0-4) % Baso % (Auto) (0-2) % Lymph # (Auto) (1.2-4.9) X10*3/uL [place] # (Auto) (0.1-1.2) X10*3/uL Eos # (Auto) (0.0-0.4) X10*3/uL Baso # (Auto) (0.0-0.2) X10*3/uL Abs Immat Gran (auto) (0.00-0.03) X10*3/uL Absolute Neuts (auto) (2.0-8.3) X10*3/uL Absolute Nucleated RBC (0.0-0.012) X10*3/uL Nucleated RBC % (auto) (0.0-0.2) /100WBC Sodium (135-145) mmol/L Potassium (3.3-5.1) mmol/L Chloride (96-108) mmol/L Carbon Dioxide (22-29) mmol/L Anion Gap (12-20) BUN (9-16) mg/dL Creatinine (0.5-1.4) mg/dL Estim Creat Clear Calc Estimated GFR Random Glucose (60-115) mg/dL Lactic Acid (0.5-2.0) mmol/L Calcium (8.4-10.2) mg/dL Magnesium (1.6-2.6) mg/dL Total Bilirubin (0.0-1.0) mg/dL Direct Bilirubin (0.0-0.5) mg/dL AST (5-31) U/L ALT (0-31) U/L Alkaline Phosphatase (39-117) U/L Total Protein (6.5-8.0) g/dL Albumin (3.5-5.0) g/dL Lipase (8-78) U/L Urine Color YELLOW Urine Appearance HAZY Urine pH 6.0 (5.0-8.0) Ur Specific [place] >= 1.030 H (1.005-1.025) Urine Protein 1+ H (NEG-TRACE) MG/DL Urine Glucose (UA) NEG (NEG) MG/DL Urine Ketones >=80 (NEG) MG/DL Urine Blood TRACE (NEG) Urine Nitrite NEG (NEG) Ur Leukocyte Esterase NEG (NEG) Urine RBC 0-2 (0) /HPF Urine WBC 0-2 (0-4) /HPF Ur Squamous Epith Cells 3+ /LPF Urine Bacteria TRACE /LPF Urine Mucus 1+ /LPF Urine Test NEGATIVE (NEGATIVE) Urine Opiates Screen Not Detected (Not Detect) Urine Fentanyl Screen Not Detected (Not Detect) Ur Barbiturates Screen Not Detected (Not Detect) Ur Phencyclidine Scrn Not Detected (Not Detect) Ur Amphetamines Screen Not Detected (Not Detect) U Benzodiazepines Scrn Not Detected (Not Detect) Urine Cocaine Screen Not Detected (Not Detect) U Marijuana (THC) Screen POSITIVE H (Not Detect) COVID-19 ([facility]) (Negative) COVID-19 Clin Com 04/16/21 Range/Units 10:57 WBC (4.8-10.8) X10*3/uL RBC (4.20-5.50) X10*6/uL Hgb (12.0-16.0) g/dl Hct (37-47) % MCV (80-98) fL MCH (27.0-33.0) pg MCHC (31.0-35.0) g/dl RDW (11.0-16.0) % Plt Count (160-400) X10*3/uL MPV (9.4-12.3) fL Immature Gran % (Auto) (0.0-0.4) % Neut % (Auto) (45-73) % Lymph % (Auto) (20-40) % [place] % (Auto) (2-11) % Eos % (Auto) (0-4) % Baso % (Auto) (0-2) % Lymph # (Auto) (1.2-4.9) X10*3/uL [place] # (Auto) (0.1-1.2) X10*3/uL Eos # (Auto) (0.0-0.4) X10*3/uL Baso # (Auto) (0.0-0.2) X10*3/uL Abs Immat Gran (auto) (0.00-0.03) X10*3/uL Absolute Neuts (auto) (2.0-8.3) X10*3/uL Absolute Nucleated RBC (0.0-0.012) X10*3/uL Nucleated RBC % (auto) (0.0-0.2) /100WBC Sodium (135-145) mmol/L Potassium (3.3-5.1) mmol/L Chloride (96-108) mmol/L Carbon Dioxide (22-29) mmol/L Anion Gap (12-20) BUN (9-16) mg/dL Creatinine (0.5-1.4) mg/dL Estim Creat Clear Calc Estimated GFR Random Glucose (60-115) mg/dL Lactic Acid 0.5 (0.5-2.0) mmol/L Calcium (8.4-10.2) mg/dL Magnesium (1.6-2.6) mg/dL Total Bilirubin (0.0-1.0) mg/dL Direct Bilirubin (0.0-0.5) mg/dL AST (5-31) U/L ALT (0-31) U/L Alkaline Phosphatase (39-117) U/L Total Protein (6.5-8.0) g/dL Albumin (3.5-5.0) g/dL Lipase (8-78) U/L Urine Color Urine Appearance Urine pH (5.0-8.0) Ur Specific [place] (1.005-1.025) Urine Protein (NEG-TRACE) MG/DL Urine Glucose (UA) (NEG) MG/DL Urine Ketones (NEG) MG/DL Urine Blood (NEG) Urine Nitrite (NEG) Ur Leukocyte Esterase (NEG) Urine RBC (0) /HPF Urine WBC (0-4) /HPF Ur Squamous Epith Cells /LPF Urine Bacteria /LPF Urine Mucus /LPF Urine Test (NEGATIVE) Urine Opiates Screen (Not Detect) Urine Fentanyl Screen (Not Detect) Ur Barbiturates Screen (Not Detect) Ur Phencyclidine Scrn (Not Detect) Ur Amphetamines Screen (Not Detect) U Benzodiazepines Scrn (Not Detect) Urine Cocaine Screen (Not Detect) U Marijuana (THC) Screen (Not Detect) COVID-19 ([facility]) (Negative) COVID-19 Clin Com Critical Care Time Critical Care Time Critical Care Time: No Discharge Plan Discharge Clinical Impression: Gastroenteritis Patient Disposition: Home, Self-Care Instructions: Gastroenteritis (ED) Additional Instructions: Rest and stay hydrated. Stick to a bland diet while you are not feeling well, soup and crackers. Take the prescribed medication as needed for nausea. Recommend Pepto Bismol or Imodium for diarrhea - found over the counter. Follow up with your doctor as needed. If you develop new or worsening symptoms call 911 or come back to the ER for further evaluation. Prescriptions: New ondansetron 4 mg tablet,disintegrating 4 mg PO Q8H PRN (Reason: nausea and vomiting) Qty: 8 RF: 0 omeprazole magnesium [Prilosec OTC] 20 mg tablet,delayed release (DR/EC) 40 mg PO DAILY Qty: 14 RF: 0 No Action fluoxetine 10 mg capsule 10 mg PO DAILY Qty: 30 RF: 6 Fasenra 30 mg/mL syringe See Rx Instructions subcut Q8W 28 Days Qty: 1 RF: 12 benzonatate [Tessalon Perles] 100 mg capsule 100 mg PO BID PRN (Reason: cough) 5 Days Qty: 10 RF: 0 benzonatate 200 mg capsule 200 mg PO TID PRN (Reason: cough) 7 Days Qty: 21 RF: 0 albuterol sulfate 90 mcg/actuation HFA aerosol inhaler 1 puff PO Q4H PRN (Reason: bronchospasm) 30 Days Qty: 8.5 RF: 6 phentermine 37.5 mg tablet 37.5 mg PO DAILY 30 Days Qty: 30 RF: 0 prednisone 20 mg tablet 60 mg PO DAILY 5 Days Qty: 15 RF: 0 albuterol sulfate 2.5 mg /3 mL (0.083 %) solution for nebulization 2.5 mg inhalation Q6H Qty: 180 RF: 0 naproxen 500 mg tablet 500 mg PO BID PRN (Reason: pain) Qty: 20 RF: 0 cyclobenzaprine 10 mg tablet 10 mg PO TID PRN (Reason: muscle spasm) Qty: 18 RF: 0 prednisone 20 mg tablet 40 mg PO DAILY Qty: 10 RF: 0 azithromycin [Zithromax Z-Kyrie] 250 mg tablet 250 mg PO DAILY 5 Days Qty: 5 RF: 0 acetaminophen [Tylenol Extra Strength] 500 mg tablet 500 mg PO Q6H PRN (Reason: pain or fever) Qty: 20 RF: 0 AirDuo Digihaler 232-14 mcg/actuation aero powdr breath act w/sensor 1 inh inhalation BID 30 Days Qty: 1 RF: 6 montelukast 10 mg tablet 10 mg PO DAILY RF: 0 ipratropium-albuterol 0.5 mg-3 mg(2.5 mg base)/3 mL solution for nebulization inhalation Q6H RF: 0 PMFSH Past Medical History Medical History (Updated 04/16/21 @ 12:00 by PHIL Up) Abdominal pain Abnormal renal finding Asthma Depression Eczema Rhinitis Weight gain Surgical History History of cholecystectomy History of tonsillectomy and adenoidectomy Family History Family History Mother Asthma Bipolar 1 disorder Hypertension Schizophrenia Father No problems noted. Maternal Grandmother Hypertension Family/Other Breast cancer Social History Social History Alcohol intake: unknown Advance Directives: No Advance Directives Information Provided: No Patient : No
[2021-04-16 09:38] LABS: MANUAL DIFF FLAG NO
[2021-04-16] MEDS: 0.9 % Sodium Chloride 1,000 ML 999 ML IVCONT (09:41)
[2021-04-16] MEDS: ondansetron HCL 4 MG/2 ML VIAL IVPUSH (09:41)
[2021-04-16] MEDS: Morphine Sulfate 4 MG/ML CARTRIDGE IVPUSH (09:41)
[2021-04-16 09:46] LABS: Appearance Urine HAZY; Color Urine YELLOW; Glucose Urine UA NEG (NEG); Leukocyte Esterase Urine NEG (NEG); Nitrite Urine NEG (NEG); Specific Gravity - Urine >= 1.030 (1.005-1.025); UACC Culture Trigger NO; Urine Blood TRACE (NEG); Urine Ketones >=80 MG/DL (NEG); Urine Protein 1+ MG/DL (NEG-TRACE)
[2021-04-16 09:51] LABS: UPreg QC Valid YES; Urine Pregnancy NEGATIVE (NEGATIVE)
[2021-04-16 09:55] LABS: Bacteria Urine TRACE /LPF; COVID-19 Test Negative (Negative); IDNOW Serial# 9DD0AD1C; Mucus Urine 1+ /LPF; RBC Urine 0-2 /HPF (0); Squamous Epithelial Cell Urine 3+ /LPF; WBC Urine 0-2 /HPF (0-4)
[2021-04-16 09:56] LABS: Amphetamine Screen Urine Not Detected (Not Detect); Barbiturates, Urine Not Detected (Not Detect); Benzodiazepines Screen Urine Not Detected (Not Detect); Cannabinoid Screen Urine POSITIVE (Not Detect); Cocaine Screen Urine Not Detected (Not Detect); Fentanyl, urine Not Detected (Not Detect); Opiate Screen Urine Not Detected (Not Detect); Phencyclidine Screen Urine Not Detected (Not Detect)
[2021-04-16 10:00] LABS: Basophils Percent Auto 0.2 % (0-2); Hematocrit 37.2 % (37-47); Hemoglobin 12.6 g/dl (12.0-16.0); Imm Gran Abs Auto 0.02 X10*3/uL (0.00-0.03); Imm Gran Pct Auto 0.3 % (0.0-0.4); Lymphocytes Absolute Auto 0.7 X10*3/uL (1.2-4.9); Lymphocytes Percent Auto 11.6 % (20-40); Mean Corpuscular HGB Conc 33.9 g/dl (31.0-35.0); Mean Corpuscular Hemoglobin 30.7 pg (27.0-33.0); Mean Corpuscular Volume 90.7 fL (80-98); Mean Platelet Volume 11.1 fL (9.4-12.3); Monocytes Absolute Auto 0.4 X10*3/uL (0.1-1.2); Monocytes Percent Auto 5.7 % (2-11); Neutrophils Absolute Auto 5.2 X10*3/uL (2.0-8.3); Neutrophils Percent Auto 82.2 % (45-73); Platelet Count 183 X10*3/uL (160-400); Red Cell Distribution Width 15.3 % (11.0-16.0); White Blood Count 6.3 X10*3/uL (4.8-10.8)
[2021-04-16 10:13] LABS: Alanine Aminotransferase 14 U/L (0-31); Albumin Level 4.2 g/dL (3.5-5.0); Alkaline Phosphatase 67 U/L (39-117); Anion Gap 21 (12-20); Aspartate Amino Transferase 21 U/L (5-31); Bilirubin Direct 0.3 mg/dL (0.0-0.5); Bilirubin Total 0.9 mg/dL (0.0-1.0); Blood Urea Nitrogen 7 mg/dL (9-16); Calcium 8.9 mg/dL (8.4-10.2); Carbon Dioxide 17 mmol/L (22-29); Chloride 104 mmol/L (96-108); Creatinine Clr Calc Pharmacy 95.6; Estimated Glomerular Filt Rate > 60; Glucose Random 75 mg/dL (60-115); Lipase 6 U/L (8-78); Sodium 138 mmol/L (135-145); Total Protein 7.3 g/dL (6.5-8.0)
[2021-04-16 11:18] LABS: Lactic Acid 0.5 mmol/L (0.5-2.0)
[2021-04-16 12:00] VITALS: BP 124/67; PULSE 90; RESP 18; TEMP 36.8; O2SAT 100
== END 2021-04-16 12:41 | disposition home or self-care (01) ==
PROVIDERS: Physician Assistant; Emergency Provider Emergency Medicine; PCP Internal Medicine
DX: K52.9 Noninfective gastroenteritis and colitis, unspecified (principal); Z20.822 Contact with and (suspected) exposure to COVID-19; F12.90 Cannabis use, unspecified, uncomplicated; J45.909 Unspecified asthma, uncomplicated; Z79.899 Other long term (current) drug therapy
CPT/HCPCS: 36415; 80048; 80076; 80307; 81001; 81025; 83605; 83690; 83735; 85025; 87040; 87635; 96361; 96374; 96375; 99284; J2270; J2405

== ENCOUNTER 2021-04-17 08:27 | Emergency (ER) | payer OTHER, SELFPAY ==
[2021-04-17 08:44] VITALS: BP 114/66; PULSE 77; RESP 18; TEMP 36.9; O2SAT 97; BMI 25.4
--- NOTE | 2021-04-17 08:59 | ED_ITS ---
HPI - Abdominal Pain General Chief Complaint: Abdominal Pain Stated Complaint: Vomiting Time Seen by Provider: 04/17/21 08:45 Source: patient Limitations: no limitations History of Present Illness HPI narrative: Patient presents to the ER with epigastric pain x5 days associated nausea vomiting denies diarrhea. Patient has a history of a c holecystectomy multiple years ago. Patient also has a history of a tonsillectomy. In sinus procedure in the past. Patient denies smoking marijuana at this time. Symptoms are moderate. Pain is 7/10. Located in the middle of the belly. Patient denies being states she had a tubal ligation. No recent COVID-19 exposure or travel history. Pain is nonradiating decreased p.o. intake. Related Data Home Medications Medication Instructions Recorded Confirmed ipratropium 0.5 mg-albuterol 3 mg ml INHALATION Q6H 05/11/20 10/10/20 (2.5 mg base)/3 mL nebulization soln montelukast 10 mg tablet 10 mg PO DAILY 05/11/20 10/10/20 Previous Rx's Medication Instructions Recorded fluticasone 232mcg-salmeterol 1 inh INHALATION BID 30 Days #1 ea 05/17/20 14mcg/actuation breath act,powder sensor ([employer] Digihaler) acetaminophen 500 mg tablet 500 mg PO Q6H PRN #20 tab 07/18/20 (Tylenol Extra Strength) fluoxetine 10 mg capsule 10 mg PO DAILY #30 cap 09/07/20 albuterol sulfate 2.5 mg INHALATION Q6H #180 ml 09/28/20 prednisone 20 mg tablet 60 mg PO DAILY 5 Days #15 tab 09/28/20 cyclobenzaprine 10 mg tablet 10 mg PO TID PRN #18 tab 10/08/20 naproxen 500 mg tablet 500 mg PO BID PRN #20 tab 10/08/20 benralizumab 30 mg/mL subcutaneous See Rx Instructions SUBCUT Q8W 28 10/14/20 syringe (Fasenra) Days #1 ml benzonatate 100 mg capsule 100 mg PO BID PRN 5 Days #10 cap 10/21/20 (Tessalon Ruiz) benzonatate 200 mg capsule 200 mg PO TID PRN 7 Days #21 cap 10/22/20 azithromycin 250 mg tablet 250 mg PO DAILY 5 Days #5 tab 10/24/20 (Zithromax Z-Kyrie) prednisone 20 mg tablet 40 mg PO DAILY #10 tab 10/24/20 albuterol sulfate 90 mcg/actuation 1 puff PO Q4H PRN 30 Days #8.5 g 11/28/20 aerosol inhaler phentermine 37.5 mg tablet 37.5 mg PO DAILY 30 Days #30 tab 01/06/21 omeprazole magnesium 20 mg 40 mg PO DAILY #14 tab 04/16/21 tablet,delayed release (Prilosec OTC) ondansetron 4 mg disintegrating 4 mg PO Q8H PRN #8 tab 04/16/21 tablet Allergies Allergy/AdvReac Type Severity Reaction Status Date / Time ibuprofen [From MOTRIN] AdvReac Intermediate N/V, Verified 10/15/20 10:00 vomiting Review of Systems Constitutional: Denies body ache(s), Denies chills, Denies fever(s) and Denies headache(s) Denies dry mouth, Denies headache(s) and Denies nasal congestion Cardiovascular: Denies chest pain, Denies syncope and Denies dyspnea Respiratory: Denies cough, Denies dyspnea and Denies wheezing Gastrointestinal: Reports abdominal pain, Reports nausea and Reports vomiting Genitourinary: Denies dysuria, Denies pelvic pain, Denies urinary urgency and Denies vaginal discharge Musculoskeletal: Reports no additional musculoskeletal complaints Denies syncope and Denies headache(s) Psychiatric: Denies depression Hematologic/Lymphatic: Denies easy bruising Allergic/Immunologic: Denies wheezing Physical Exam Vital Signs: Vital Signs: Last Vital Signs Temp 98.4 F 04/17/21 08:44 Pulse 70 04/17/21 09:57 Resp 16 04/17/21 09:57 BP 119/68 04/17/21 09:57 Pulse Ox 97 04/17/21 08:44 Body Mass Index 25.4 vital signs have been reviewed as normal and appeared to be correct. Blood pressure normal. Heart rate normal. Respiration rate normal. Temperature normal. Oxygen saturation normal. Appearance: Alert. Oriented X3. No acute distress. Head: Normal external exam. Normocephalic. Atraumatic. Eyes: PERRLA. EOMI. Conjunctiva and sclera normal. Eyelids normal. ENT: Pharynx normal. Uvula midline. Mucosa dry Neck: Soft full range of motion, no JVD CVS: Heart regular rate and rhythm no murmurs and rubs Respiratory: Breath sounds are clear to auscultation bilaterally. No accessory muscle use noted. Abdomen: Soft positive epigastric tenderness no right lower or left lower quadrant tenderness. No rebound or guarding. Back: No CVA tenderness. Full range of motion noted. Skin: Skin warm and dry. Normal skin color. Normal skin turgor. No rashes/lesions/lacerations noted. Extremities: No lower extremity edema. Extremities exhibit normal range of m otion. Extremities nontender. Neuro: Oriented X 3. No motor deficit. No sensory deficit. Reflexes normal. Course Course Course Narrative: Gastroenteritis Dehydration Marijuana hyperemesis Appendicitis less likely no right lower quadrant tenderness Peptic ulcer disease Reflux 1000 mL normal saline IV bolus 4 mg Zofran IV CBC complete metabolic panel pending. Patient had CT of the abdomen pelvis on 10/08/2020 that showed no acute findings at that time. Patient admits some crampy pain patient given 25 mg Benadryl IV and 50 mg Toradol IV 11:29 a.m. IV hydration has finished overall labs have improved since yesterday. Case discussed with Dr. William agrees with current treatment and plan plan to discharge home continue Zofran sec avoid any marijuana use. MDM - Abdominal Pain Lab Data Result diagrams: 04/17/21 09:20 04/17/21 09:20 Labs: Lab Results 04/17/21 04/17/21 04/17/21 Range/Units 09:20 09:20 10:30 WBC 6.2 (4.8-10.8) X10*3/uL RBC 4.01 L (4.20-5.50) X10*6/uL Hgb 12.3 (12.0-16.0) g/dl Hct 36.1 L (37-47) % MCV 90.0 (80-98) fL MCH 30.7 (27.0-33.0) pg MCHC 34.1 (31.0-35.0) g/dl RDW 15.4 (11.0-16.0) % Plt Count 104 L D (160-400) X10*3/uL MPV 11.3 (9.4-12.3) fL Immature Gran % (Auto) 0.3 (0.0-0.4) % Neut % (Auto) 84.9 H (45-73) % Lymph % (Auto) 9.3 L (20-40) % [place] % (Auto) 5.3 (2-11) % Eos % (Auto) 0.0 (0-4) % Baso % (Auto) 0.2 (0-2) % Lymph # (Auto) 0.6 L (1.2-4.9) X10*3/uL [place] # (Auto) 0.3 (0.1-1.2) X10*3/uL Eos # (Auto) 0.0 (0.0-0.4) X10*3/uL Baso # (Auto) 0.0 (0.0-0.2) X10*3/uL Abs Immat Gran (auto) 0.02 (0.00-0.03) X10*3/uL Absolute Neuts (auto) 5.3 (2.0-8.3) X10*3/uL Absolute Nucleated RBC 0.000 (0.0-0.012) X10*3/uL Nucleated RBC % (auto) 0.0 (0.0-0.2) /100WBC Smear Tech's Comments VERIFIED Sodium 137 (135-145) mmol/L Potassium 4.2 (3.3-5.1) mmol/L Chloride 110 H (96-108) mmol/L Carbon Dioxide 14 L (22-29) mmol/L Anion Gap 17 (12-20) BUN 5 L (9-16) mg/dL Creatinine 0.73 (0.5-1.4) mg/dL Estim Creat Clear Calc 93.0 Estimated GFR > 60 Random Glucose 74 (60-115) mg/dL Calcium 8.6 (8.4-10.2) mg/dL Total Bilirubin 0.9 (0.0-1.0) mg/dL Direct Bilirubin 0.3 (0.0-0.5) mg/dL AST 27 (5-31) U/L ALT 16 (0-31) U/L Alkaline Phosphatase 64 (39-117) U/L Total Protein 7.2 (6.5-8.0) g/dL Albumin 4.0 (3.5-5.0) g/dL Lipase 8 (8-78) U/L Urine Color YELLOW Urine Appearance HAZY Urine pH 6.0 (5.0-8.0) Ur Specific [place] >= 1.030 H (1.005-1.025) Urine Protein TRACE (NEG-TRACE) MG/DL Urine Glucose (UA) NEG (NEG) MG/DL Urine Ketones >=80 (NEG) MG/DL Urine Blood TRACE (NEG) Urine Nitrite NEG (NEG) Ur Leukocyte Esterase TRACE H (NEG) Urine Test (NEGATIVE) 04/17/21 Range/Units 10:30 WBC (4.8-10.8) X10*3/uL RBC (4.20-5.50) X10*6/uL Hgb (12.0-16.0) g/dl Hct (37-47) % MCV (80-98) fL MCH (27.0-33.0) pg MCHC (31.0-35.0) g/dl RDW (11.0-16.0) % Plt Count (160-400) X10*3/uL MPV (9.4-12.3) fL Immature Gran % (Auto) (0.0-0.4) % Neut % (Auto) (45-73) % Lymph % (Auto) (20-40) % [place] % (Auto) (2-11) % Eos % (Auto) (0-4) % Baso % (Auto) (0-2) % Lymph # (Auto) (1.2-4.9) X10*3/uL [place] # (Auto) (0.1-1.2) X10*3/uL Eos # (Auto) (0.0-0.4) X10*3/uL Baso # (Auto) (0.0-0.2) X10*3/uL Abs Immat Gran (auto) (0.00-0.03) X10*3/uL Absolute Neuts (auto) (2.0-8.3) X10*3/uL Absolute Nucleated RBC (0.0-0.012) X10*3/uL Nucleated RBC % (auto) (0.0-0.2) /100WBC Smear Tech's Comments Sodium (135-145) mmol/L Potassium (3.3-5.1) mmol/L Chloride (96-108) mmol/L Carbon Dioxide (22-29) mmol/L Anion Gap (12-20) BUN (9-16) mg/dL Creatinine (0.5-1.4) mg/dL Estim Creat Clear Calc Estimated GFR Random Glucose (60-115) mg/dL Calcium (8.4-10.2) mg/dL Total Bilirubin (0.0-1.0) mg/dL Direct Bilirubin (0.0-0.5) mg/dL AST (5-31) U/L ALT (0-31) U/L Alkaline Phosphatase (39-117) U/L Total Protein (6.5-8.0) g/dL Albumin (3.5-5.0) g/dL Lipase (8-78) U/L Urine Color Urine Appearance Urine pH (5.0-8.0) Ur Specific [place] (1.005-1.025) Urine Protein (NEG-TRACE) MG/DL Urine Glucose (UA) (NEG) MG/DL Urine Ketones (NEG) MG/DL Urine Blood (NEG) Urine Nitrite (NEG) Ur Leukocyte Esterase (NEG) Urine Test NEGATIVE (NEGATIVE) Critical Care Time Critical Care Time Critical Care Time: No Discharge Plan Discharge Clinical Impression: Gastroenteritis Patient Disposition: Home, Self-Care Instructions: Acute Nausea and Vomiting (ED) Additional Instructions: Avoid marijuana use as it can make nausea vomiting symptoms worse. Continue the Zofran and Prilosec as directed Chambers diet call PCP for follow-up Prescriptions: No Action fluoxetine 10 mg capsule 10 mg PO DAILY Qty: 30 RF: 6 Fasenra 30 mg/mL syringe See Rx Instructions subcut Q8W 28 Days Qty: 1 RF: 12 benzonatate [Tessalon Perles] 100 mg capsule 100 mg PO BID PRN (Reason: cough) 5 Days Qty: 10 RF: 0 benzonatate 200 mg capsule 200 mg PO TID PRN (Reason: cough) 7 Days Qty: 21 RF: 0 albuterol sulfate 90 mcg/actuation HFA aerosol inhaler 1 puff PO Q4H PRN (Reason: bronchospasm) 30 Days Qty: 8.5 RF: 6 phentermine 37.5 mg tablet 37.5 mg PO DAILY 30 Days Qty: 30 RF: 0 prednisone 20 mg tablet 60 mg PO DAILY 5 Days Qty: 15 RF: 0 albuterol sulfate 2.5 mg /3 mL (0.083 %) solution for nebulization 2.5 mg inhalation Q6H Qty: 180 RF: 0 naproxen 500 mg tablet 500 mg PO BID PRN (Reason: pain) Qty: 20 RF: 0 cyclobenzaprine 10 mg tablet 10 mg PO TID PRN (Reason: muscle spasm) Qty: 18 RF: 0 prednisone 20 mg tablet 40 mg PO DAILY Qty: 10 RF: 0 azithromycin [Zithromax Z-Kyrie] 250 mg tablet 250 mg PO DAILY 5 Days Qty: 5 RF: 0 acetaminophen [Tylenol Extra Strength] 500 mg tablet 500 mg PO Q6H PRN (Reason: pain or fever) Qty: 20 RF: 0 ondansetron 4 mg tablet,disintegrating 4 mg PO Q8H PRN (Reason: nausea and vomiting) Qty: 8 RF: 0 omeprazole magnesium [Prilosec OTC] 20 mg tablet,delayed release (DR/EC) 40 mg PO DAILY Qty: 14 RF: 0 AirDuo Digihaler 232-14 mcg/actuation aero powdr breath act w/sensor 1 inh inhalation BID 30 Days Qty: 1 RF: 6 montelukast 10 mg tablet 10 mg PO DAILY RF: 0 ipratropium-albuterol 0.5 mg-3 mg(2.5 mg base)/3 mL solution for nebulization inhalation Q6H RF: 0 Referrals: Mallorie Cristina MD [Primary Care Provider] - 2 days (Recurrent nausea vomiting) [facility] Past Medical History Attestation statement: The following information was validated with the patient. Medical History Abdominal pain Abnormal renal finding Asthma Depression Eczema Rhinitis Weight gain Surgical History History of cholecystectomy History of tonsillectomy and adenoidectomy Hx of tubal ligation Family History Family History Mother Asthma Bipolar 1 disorder Hypertension Schizophrenia Father No problems noted. Maternal Grandmother Hypertension Family/Other Breast cancer Social History Social History Alcohol intake: unknown Patient Tobacco Use Status: Never used Tobacco Use of substances other than those prescribed or required for medical reasons: Yes Substance Use Type: Marijuana Substance Use Frequency: Occasionally Advance Directives: No Advance Directives Information Provided: No Patient : No
[2021-04-17 09:25] LABS: Basophils Percent Auto 0.2 % (0-2); Imm Gran Abs Auto 0.02 X10*3/uL (0.00-0.03); Imm Gran Pct Auto 0.3 % (0.0-0.4); MANUAL DIFF FLAG SCAN; Neutrophils Absolute Auto 5.3 X10*3/uL (2.0-8.3); PLT CLUMP 1; SCAN SMEAR FLAG 1
[2021-04-17 09:26] LABS: Hematocrit 36.1 % (37-47); Hemoglobin 12.3 g/dl (12.0-16.0); Lymphocytes Absolute Auto 0.6 X10*3/uL (1.2-4.9); Lymphocytes Percent Auto 9.3 % (20-40); Mean Corpuscular HGB Conc 34.1 g/dl (31.0-35.0); Mean Corpuscular Hemoglobin 30.7 pg (27.0-33.0); Monocytes Absolute Auto 0.3 X10*3/uL (0.1-1.2); Monocytes Percent Auto 5.3 % (2-11); Neutrophils Percent Auto 84.9 % (45-73); Red Blood Count 4.01 X10*6/uL (4.20-5.50); Red Cell Distribution Width 15.4 % (11.0-16.0); White Blood Count 6.2 X10*3/uL (4.8-10.8)
[2021-04-17] MEDS: 0.9 % Sodium Chloride 1,000 ML 999 ML IV (09:49)
[2021-04-17] MEDS: ondansetron HCL 4 MG/2 ML VIAL IVPUSH (09:49)
[2021-04-17 09:52] LABS: Mean Platelet Volume 11.3 fL (9.4-12.3); Platelet Count 104 X10*3/uL (160-400); SLIDE REVIEW VERIFIED
[2021-04-17 09:57] VITALS: BP 119/68; PULSE 70; RESP 16
[2021-04-17 10:36] LABS: Alanine Aminotransferase 16 U/L (0-31); Alkaline Phosphatase 64 U/L (39-117); Anion Gap 17 (12-20); Aspartate Amino Transferase 27 U/L (5-31); Bilirubin Direct 0.3 mg/dL (0.0-0.5); Bilirubin Total 0.9 mg/dL (0.0-1.0); Blood Urea Nitrogen 5 mg/dL (9-16); Calcium 8.6 mg/dL (8.4-10.2); Carbon Dioxide 14 mmol/L (22-29); Chloride 110 mmol/L (96-108); Estimated Glomerular Filt Rate > 60; Glucose Random 74 mg/dL (60-115); Lipase 8 U/L (8-78); Potassium 4.2 mmol/L (3.3-5.1); Sodium 137 mmol/L (135-145); Total Protein 7.2 g/dL (6.5-8.0)
[2021-04-17 10:45] LABS: Glucose Urine UA NEG (NEG); Leukocyte Esterase Urine TRACE (NEG); Nitrite Urine NEG (NEG); Specific Gravity - Urine >= 1.030 (1.005-1.025); UACC Culture Trigger YES; Urine Blood TRACE (NEG); Urine Ketones >=80 MG/DL (NEG); Urine Protein TRACE MG/DL (NEG-TRACE)
[2021-04-17 10:46] LABS: Appearance Urine HAZY; Color Urine YELLOW
[2021-04-17 10:47] LABS: UPreg QC Valid YES; Urine Pregnancy NEGATIVE (NEGATIVE)
[2021-04-17] MEDS: diphenhydrAMINE HCL 50 MG/ML VIAL 25 MG IVPUSH (11:11)
[2021-04-17] MEDS: Ketorolac Tromethamine 15 MG/ML VIAL IVPUSH (11:12)
--- NOTE | 2021-04-17 11:13 | PC.NURSE ---
Pain persist to epigastric region 04/25, medicated as ordered
[2021-04-17 11:35] VITALS: BP 115/69; PULSE 63; RESP 14
[2021-04-17 12:18] LABS: Squamous Epithelial Cell Urine 2+ /LPF
[2021-04-17 12:19] LABS: Bacteria Urine 1+ /LPF
== END 2021-04-17 11:36 | disposition home or self-care (01) ==
PROVIDERS: Emergency Provider Emergency Medicine; PCP Internal Medicine
DX: K52.9 Noninfective gastroenteritis and colitis, unspecified (principal); R10.13 Epigastric pain; Z79.899 Other long term (current) drug therapy; Z20.822 Contact with and (suspected) exposure to COVID-19
CPT/HCPCS: 36415; 80048; 80076; 81001; 81025; 83690; 85025; 87086; 96361; 96374; 96375; 99284; J1200; J1885; J2405

== ENCOUNTER 2021-05-05 13:14 | Outpatient (REF) | payer OTHER, SELFPAY | END 2021-05-05 13:15 | disposition home or self-care (01) | LOC: HO.MDS 13:14 | PROVIDERS: PCP Internal Medicine; Visit Provider Internal Medicine Pulmonary Disease | DX: Z53.21 Procedure and treatment not carried out due to patient leaving prior to being seen by health care provider (principal); J45.50 Severe persistent asthma, uncomplicated ==

== ENCOUNTER 2021-05-09 12:35 | Outpatient (REF) | payer OTHER, SELFPAY | END 2021-05-09 12:36 | disposition home or self-care (01) | LOC: HO.MDS 12:35 | PROVIDERS: PCP Internal Medicine; Visit Provider Internal Medicine Pulmonary Disease | DX: J45.50 Severe persistent asthma, uncomplicated (principal) | CPT/HCPCS: 96372; J0517 ==

== ENCOUNTER 2021-07-08 09:45 | Outpatient (REF) | payer OTHER, SELFPAY | END 2021-07-08 09:46 | disposition home or self-care (01) | LOC: HO.MDS 09:45 | PROVIDERS: PCP Internal Medicine; Visit Provider Internal Medicine Pulmonary Disease | DX: J45.50 Severe persistent asthma, uncomplicated (principal) | CPT/HCPCS: 96372; J0517 ==

== ENCOUNTER 2021-08-15 10:22 | Emergency (ER) | payer OTHER, SELFPAY ==
[2021-08-15 11:14] VITALS: BP 102/77; PULSE 102; RESP 18; TEMP 37.7; O2SAT 99; BMI 22.6
[2021-08-15 11:18] LABS: COVID-19 Test Positive (Negative)
--- NOTE | 2021-08-15 11:18 | ED.URI ---
HPI - URI/Sore Throat General Chief Complaint: Fever Stated Complaint: Back pain/vomiting/fever Time Seen by Provider: 08/15/21 11:18 Source: patient Mode of arrival: ambulatory Limitations: no limitations History of Present Illness HPI Narrative: 26-year-old female past medical history significant for asthma presents to the emergency department with 4 days of body aches, nasal congestion, fevers, chills, nausea, vomiting, back pain. Patient is not vaccinated against COVID-19. She tells me she has been taking Tylenol at home. And she has been unable to keep any food down. MD elicited complaint: fever and nasal congestion Pertinent past history: asthma Onset (ago): day(s) (4) Consistency: constant Severity: moderate Able to tolerate fluids by mouth: Yes Exacerbating factors: nothing Relieving factors: nothing Associated symptoms: fever, chills and nasal congestion Treatments prior to arrival: none Related Data Home Medications Medication Instructions Recorded Confirmed ipratropium 0.5 mg-albuterol 3 mg ml INHALATION Q6H 05/11/20 10/10/20 (2.5 mg base)/3 mL nebulization soln montelukast 10 mg tablet 10 mg PO DAILY 05/11/20 10/10/20 Previous Rx's Medication Instructions Recorded fluticasone 232mcg-salmeterol 1 inh INHALATION BID 30 Days #1 ea 05/17/20 14mcg/actuation breath act,powder sensor ([employer] BITEXo Digihaler) acetaminophen 500 mg tablet 500 mg PO Q6H PRN #20 tab 07/18/20 (Tylenol Extra Strength) fluoxetine 10 mg capsule 10 mg PO DAILY #30 cap 09/07/20 albuterol sulfate 2.5 mg (3 mL) INHALATION Q6H #180 09/28/20 ml prednisone 20 mg tablet 60 mg PO DAILY 5 Days #15 tab 09/28/20 cyclobenzaprine 10 mg tablet 10 mg PO TID PRN #18 tab 10/08/20 naproxen 500 mg tablet 500 mg PO BID PRN #20 tab 10/08/20 benralizumab 30 mg/mL subcutaneous See Rx Instructions SUBCUT Q8W 28 10/14/20 syringe (Fasenra) Days #1 ml benzonatate 100 mg capsule 100 mg PO BID PRN 5 Days #10 cap 03/08/21 (Tessalon Perles) benzonatate 200 mg capsule 200 mg PO TID PRN 7 Days #21 cap 10/22/20 azithromycin 250 mg tablet 250 mg PO DAILY 5 Days #5 tab 10/24/20 (Zithromax Z-Kyrie) prednisone 20 mg tablet 40 mg PO DAILY #10 tab 10/24/20 albuterol sulfate 90 mcg/actuation 1 puff PO Q4H PRN 30 Days #8.5 g 11/28/20 aerosol inhaler phentermine 37.5 mg tablet 37.5 mg PO DAILY 30 Days #30 tab 01/06/21 omeprazole magnesium 20 mg 40 mg PO DAILY #14 tab 04/16/21 tablet,delayed release (Prilosec OTC) ondansetron 4 mg disintegrating 4 mg PO Q8H PRN #8 tab 04/16/21 tablet cefuroxime axetil 250 mg tablet 250 mg PO BID 7 Days #14 tab 08/15/21 Allergies Allergy/AdvReac Type Severity Reaction Status Date / Time ibuprofen [From MOTRIN] AdvReac Intermediate N/V, Verified 10/15/20 10:00 vomiting Review of Systems Review of Systems: Constitutional : + Fever, positive Chills, + fatigue, + Malaise ENT/Mouth : No sore throat, + runny nose Eyes: No Discharge Cardiovascular : No Chest Pain, No SOB Respiratory : No Cough, No Sputum Gastrointestinal : No Nausea, No Vomiting, No Diarrhea Genitourinary : + Dysuria, No Urinary Frequency Musculoskeletal : + Myalgia, +Back pain Skin : No rash Neuro : No Headache Yes all other systems are reviewed and are negative PMFSH Past Medical History Attestation statement: The following information was validated with the patient. Source: old records reviewed and nursing notes reviewed Medical History Abdominal pain Abnormal renal finding Asthma Depression Eczema Rhinitis Weight gain Surgical History History of cholecystectomy History of tonsillectomy and adenoidectomy Hx of tubal ligation Family History Family History Mother Asthma Bipolar 1 disorder Hypertension Schizophrenia Father No problems noted. Maternal Grandmother Hypertension Family/Other Breast cancer Social History Social History Alcohol intake: unknown Patient Tobacco Use Status: Never used Tobacco Substance Use Type: Marijuana Advance Directives: Yes Advance Directives Information Provided: Yes Advance Directives on File: Yes Advance Directives Date on File: 10/24/20 Physical Exam Vital Signs: Vital Signs: Last Vital Signs Temp 100 F 08/15/21 11:14 Pulse 102 H 08/15/21 11:14 Resp 18 08/15/21 11:14 BP 102/77 08/15/21 11:14 Pulse Ox 99 08/15/21 11:14 BMI result Body Mass Index 22.6 Vital signs are stable, she is noted to have a low-grade fever however, she took Tylenol just prior to her arrival. Patient is slightly tachycardic likely secondary to an anxiety Appearance: Alert.? Oriented X3.? No acute distress.? Tachycardic likely secondary to anxiety.+ anxiety Head: Normocephalic, atraumatic, no step-offs or deformities Eyes: Pupils equal, round and reactive to light.? ENT: Pharynx normal.? Neck: Normal inspection.? Neck supple.? CVS: Normal heart rate and rhythm.? Pulses normal.? Respiratory: No respiratory distress.? Breath sounds normal.? Abdomen: Soft and nontender.? Skin: Skin warm and dry.? Normal skin color.? Normal skin turgor.? Extremities: No lower extremity edema.? No calf ttp. 5/5 strength to bilateral upper and lower extremities Back: No midline tenderness, no C-spine tenderness, full range of motion, no CVA tenderness bilaterally Neuro: Oriented X 3.? No motor deficit.? No sensory deficit. Course Reevaluation(s) Reevaluation #1: Since patient is reporting dysuria, and back pain I will treat her with Ceftin 250 mg p.o. b.i.d. x7 days. I have advised her to return to the emergency department with new or worsening symptoms. I have also advised her to alternate ibuprofen and Tylenol as needed for body aches and fevers. I have provided her information with the monoclonal therapy. She expresses understanding. Advised her to follow-up with PCP. New or worsening symptoms patient should return, patient aware. Comfortable discharge home Time: 12:09 MDM - URI/Sore Throat MDM Narrative Medical decision making narrative: 1123 26-year-old female presenting to the emergency department with upper respiratory symptoms, decreased p.o. intake, back pain and dysuria x4 days. Denies chest pain or shortness of breath. Vital signs are stable, patient noted to have low-grade fever however, she had just taken in Tylenol prior to her arrival. Lungs clear. Regular rate and rhythm. Abdomen soft nontender and nondistended. Negative CVA tenderness bilaterally. 5/5 strength upper and lower extremities. No focal neuro deficits. Plan at this time is to obtain a COVID swab, and a UA to rule out UTI. Medical Records Attestation: I reviewed the patient's medical records. Lab Data Attestation: I reviewed the patient's lab results. Labs: Lab Results 08/15/21 08/15/21 Range/Units 10:57 11:25 Urine Color YELLOW Urine Appearance HAZY Urine pH 6.5 (5.0-8.0) Ur Specific [place] 1.020 (1.005-1.025) Urine Protein NEG (NEG-TRACE) MG/DL Urine Glucose (UA) NEG (NEG) MG/DL Urine Ketones >=80 (NEG) MG/DL Urine Blood TRACE (NEG) Urine Nitrite NEG (NEG) Ur Leukocyte Esterase 1+ H (NEG) Urine RBC 0-2 (0) /HPF Urine WBC 5-9 H (0-4) /HPF Ur Squamous Epith Cells 3+ /LPF Urine Bacteria 1+ /LPF Urine Mucus 2+ /LPF COVID-19 ([facility]) Positive A (Negative) COVID-19 Clin Com See Note Critical Care Time Critical Care Time Critical Care Time: No Discharge Plan Discharge Clinical Impression: COVID-19, Back pain, UTI (urinary tract infection) Patient Disposition: Home, Self-Care Instructions: Back Pain (ED), COVID-19 (Coronavirus Disease 2019) (ED) Additional Instructions: Take your medications as prescribed. If you were prescribed antibiotics today, it is important that you take your medication to their entirety, do not skip any doses, do not finish them early. Today you tested positive for COVID-19. Take Ibuprofen or Tylenol as needed for fevers or body aches. Quarantine for 7 days and ensure you wear a mask. After 7 days you should wear a mask for 3 days after that. Practice social distancing and good hand hygiene. Drink plenty of fluids. Follow-up with your primary care provider this week. Return to the emergency department with new or worsening symptoms. In case of emergency call 911 You can purchase a pulse oximeter from your local pharmacy or grocery store, and monitor your oxygen saturation if it goes below 94% you should return to the emergency department for further evaluation. I provided information and a referral to monoclonal antibody therapy. Prescriptions: New cefuroxime axetil 250 mg tablet 250 mg PO BID 7 Days Qty: 14 RF: 0 No Action fluoxetine 10 mg capsule 10 mg PO DAILY Qty: 30 RF: 6 Fasenra 30 mg/mL syringe See Rx Instructions subcut Q8W 28 Days Qty: 1 RF: 12 benzonatate [Tessalon Perles] 100 mg capsule 100 mg PO BID PRN (Reason: cough) 5 Days Qty: 10 RF: 0 benzonatate 200 mg capsule 200 mg PO TID PRN (Reason: cough) 7 Days Qty: 21 RF: 0 albuterol sulfate 90 mcg/actuation HFA aerosol inhaler 1 puff PO Q4H PRN (Reason: bronchospasm) 30 Days Qty: 8.5 RF: 6 phentermine 37.5 mg tablet 37.5 mg PO DAILY 30 Days Qty: 30 RF: 0 prednisone 20 mg tablet 60 mg PO DAILY 5 Days Qty: 15 RF: 0 albuterol sulfate 2.5 mg /3 mL (0.083 %) solution for nebulization 2.5 mg inhalation Q6H Qty: 180 RF: 0 naproxen 500 mg tablet 500 mg PO BID PRN (Reason: pain) Qty: 20 RF: 0 cyclobenzaprine 10 mg tablet 10 mg PO TID PRN (Reason: muscle spasm) Qty: 18 RF: 0 prednisone 20 mg tablet 40 mg PO DAILY Qty: 10 RF: 0 azithromycin [Zithromax Z-Kyrie] 250 mg tablet 250 mg PO DAILY 5 Days Qty: 5 RF: 0 acetaminophen [Tylenol Extra Strength] 500 mg tablet 500 mg PO Q6H PRN (Reason: pain or fever) Qty: 20 RF: 0 ondansetron 4 mg tablet,disintegrating 4 mg PO Q8H PRN (Reason: nausea and vomiting) Qty: 8 RF: 0 omeprazole magnesium [Prilosec OTC] 20 mg tablet,delayed release (DR/EC) 40 mg PO DAILY Qty: 14 RF: 0 AirDuo Digihaler 232-14 mcg/actuation aero powdr breath act w/sensor 1 inh inhalation BID 30 Days Qty: 1 RF: 6 montelukast 10 mg tablet 10 mg PO DAILY RF: 0 ipratropium-albuterol 0.5 mg-3 mg(2.5 mg base)/3 mL solution for nebulization inhalation Q6H RF: 0 Referrals: Mallorie Cristina MD [Primary Care Provider] - 2 days Stand Alone Forms: Work/School Release
[2021-08-15 11:33] LABS: Appearance Urine HAZY; Color Urine YELLOW; Glucose Urine UA NEG (NEG); Leukocyte Esterase Urine 1+ (NEG); Nitrite Urine NEG (NEG); PH 6.5 (5.0-8.0); UACC Culture Trigger YES; Urine Blood TRACE (NEG); Urine Ketones >=80 MG/DL (NEG); Urine Protein NEG (NEG-TRACE)
[2021-08-15 11:40] LABS: Bacteria Urine 1+ /LPF; Mucus Urine 2+ /LPF; RBC Urine 0-2 /HPF (0); Squamous Epithelial Cell Urine 3+ /LPF; UACC CULT YES
== END 2021-08-15 12:45 | disposition left against medical advice (07) ==
PROVIDERS: Physician Assistant; Emergency Provider Emergency Medicine; PCP Internal Medicine
DX: U07.1 COVID-19 (principal); N39.0 Urinary tract infection, site not specified; R50.9 Fever, unspecified
CPT/HCPCS: 36415; 81001; 87086; 87635; 99282; 99283

== ENCOUNTER 2021-09-12 12:33 | Outpatient (REF) | payer OTHER, SELFPAY | END 2021-09-12 12:34 | disposition home or self-care (01) | LOC: HO.MDS 12:33 | PROVIDERS: PCP Internal Medicine; Visit Provider Internal Medicine Pulmonary Disease | DX: J45.50 Severe persistent asthma, uncomplicated (principal) | CPT/HCPCS: 96372; J0517 ==

== ENCOUNTER 2021-12-19 06:53 | Emergency (ER) | payer OTHER, SELFPAY ==
[2021-12-19 06:59] VITALS: BP 121/78; PULSE 87; RESP 16; TEMP 36.6; O2SAT 95; BMI 17.8
[2021-12-19 07:32] VITALS: BP 102/63; PULSE 76; RESP 18; TEMP 36.6; O2SAT 96
--- NOTE | 2021-12-19 07:44 | PC.NURSE ---
Patient tested for COVID-19 at home about 1 week ago-tested negative.
--- NOTE | 2021-12-19 07:52 | ED.ASTHMA ---
HPI - Asthma General Chief Complaint: Asthma Stated Complaint: Asthma Time Seen by Provider: 12/19/21 07:52 History of Present Illness HPI Narrative: Patient 26-year-old female with a history asthma in the past. Patient claims that prednisone makes her itch. Turns her red she was on the medication for year. Patient complaining that she is having wheezing shortness of breath. Attempted the pump at home but did not work. Positive coughing upper respiratory symptoms. Positive generalized malaise. No focal weakness. No diaphoresis symptom has been fairly persistent getting worse in the last few days. Related Data Home Medications Medication Instructions Recorded Confirmed ipratropium 0.5 mg-albuterol 3 mg ml INHALATION Q6H 05/11/20 12/01/21 (2.5 mg base)/3 mL nebulization soln Previous Rx's Medication Instructions Recorded acetaminophen 500 mg tablet 500 mg PO Q6H PRN #20 tab 07/18/20 (Tylenol Extra Strength) fluoxetine 10 mg capsule 10 mg PO DAILY #30 cap 09/07/20 fexofenadine 180 mg tablet 180 mg PO DAILY 90 Days #90 tab 12/01/21 (Padmini Allergy) benralizumab 30 mg/mL subcutaneous 30 mg SUBCUT Q8W 28 Days #1 ml 12/17/21 syringe (Fasenra) Symbicort 160 mcg-4.5 2 puff INHALATION BID 30 Days #1 12/18/21 mcg/actuation HFA aerosol inhaler ea NS (budesonide-formoterol) albuterol sulfate 90 mcg/actuation 1 puff PO Q4H PRN 30 Days #8.5 g 12/18/21 aerosol inhaler albuterol sulfate 90 mcg/actuation 2 puff INHALATION Q6H PRN #8.5 g 12/19/21 aerosol inhaler Allergies Allergy/AdvReac Type Severity Reaction Status Date / Time ibuprofen [From MOTRIN] AdvReac Intermediate N/V, Verified 12/01/21 12:48 vomiting prednisone AdvReac pain Verified 12/17/21 11:46 Review of Systems Review of Systems: Positive wheezing, positive generalized malaise Yes all other systems are reviewed and are negative PMFSH Past Medical History Attestation statement: The following information was validated with the patient. Medical History Abnormal renal finding Eczema Environmental allergies Rhinitis Surgical History History of cholecystectomy History of tonsillectomy and adenoidectomy Hx of tubal ligation Family History Family History Mother Asthma Bipolar 1 disorder Hypertension Schizophrenia Father No problems noted. Maternal Grandmother Hypertension Family/Other Breast cancer Social History Social History (Updated 12/01/21 @ 14:13 by Ju Fitzpatrick MD) Housing: Apartment Alcohol intake: current Alcohol intake frequency: does not drink Patient Tobacco Use Status: Never used Tobacco e-Cigarette/Vaping Use: Never Used Second Hand Smoke Exposure: No Substance Use Type: Marijuana Advance Directives: Yes Advance Directives on File: Yes Advance Directives Date on File: 10/24/20 Patient : No Current occupational status: disabled Cognitive needs: No Hearing needs: No Vision needs: No Physical Exam Vital Signs: Vital Signs: Last Vital Signs Temp 98.7 F 12/19/21 10:11 Pulse 93 12/19/21 10:11 Resp 16 12/19/21 10:11 BP 118/69 12/19/21 10:11 Pulse Ox 97 12/19/21 10:11 BMI result Body Mass Index 17.8 Appearance: Alert. Oriented X3. No acute distress. Eyes: Pupils equal, round and reactive to light. ENT: Pharynx normal. Neck: Normal inspection. Neck supple. No lymph nodes noted. No crepitus CVS: Normal heart rate and rhythm. Pulses normal. Normal S1 and S2 Respiratory: Positive wheezing bilaterally Abdomen: Soft and nontender. No rigidity. No distention. good BS x4 Skin: Skin warm and dry. Normal skin color. Normal skin turgor. Extremities: No lower extremity edema. Neurovascular intact to all extremities. No Lacerations. No Rash Neuro: Oriented X 3. No motor deficit. No sensory deficit. Moving all extermities. No slurred speech MDM - Asthma MDM Narrative Medical decision making narrative: Patient given albuterol nebs. Lungs are initially wheezing. Now is clear. Refused to have any steroids as patient claims that her skin gets very itchy. Patient monitored in the emergency department. Will have patient follow-up closely with Pulmonary on an outpatient basis. She is in stable condition. COVID test was negative Medical Records Attestation: I reviewed the patient's medical records. Lab Data Attestation: I reviewed the patient's lab results. Labs: Lab Results 12/19/21 Range/Units 08:25 COVID-19 ([facility]) Negative (Negative) COVID-19 Clin Com See Note Discharge Plan Discharge Clinical Impression: Asthma Patient Disposition: Home, Self-Care Instructions: Asthma (DC) Prescriptions: New albuterol sulfate 90 mcg/actuation HFA aerosol inhaler 2 puff inhalation Q6H PRN (Reason: sob) Qty: 8.5 0RF No Action fluoxetine 10 mg capsule 10 mg PO DAILY Qty: 30 6RF Fasenra 30 mg/mL syringe 30 mg subcut Q8W 28 Days Qty: 1 12RF budesonide-formoterol [Symbicort] 160-4.5 mcg/actuation HFA aerosol inhaler 2 puff inhalation BID 30 Days Qty: 1 6RF albuterol sulfate 90 mcg/actuation HFA aerosol inhaler 1 puff PO Q4H PRN (Reason: bronchospasm) 30 Days Qty: 8.5 0RF acetaminophen [Tylenol Extra Strength] 500 mg tablet 500 mg PO Q6H PRN (Reason: pain or fever) Qty: 20 0RF fexofenadine [Padmini Allergy] 180 mg tablet 180 mg PO DAILY 90 Days Qty: 90 3RF ipratropium-albuterol 0.5 mg-3 mg(2.5 mg base)/3 mL solution for nebulization inhalation Q6H 0RF Referrals: Po,Ju Shaw MD [Primary Care Provider] -
[2021-12-19 08:17] VITALS: PULSE 74; RESP 20; O2SAT 99
[2021-12-19] MEDS: Albuterol Sulfate (0.083%) 2.5 MG/3 ML VIAL.NEB 5 MG INHALE (08:17)
[2021-12-19] MEDS: Albuterol/Iprat 2.5/0.5MG 3 ML AMPUL.NEB INHALE (08:17)
[2021-12-19 08:45] LABS: COVID-19 Test Negative (Negative)
[2021-12-19 10:11] VITALS: BP 118/69; PULSE 93; RESP 16; TEMP 37.1; O2SAT 97
--- NOTE | 2021-12-19 10:13 | PC.NURSE ---
Patient received updraft treatment-she reports feeling better-dyspnea and chest tightness resolved. O2 Sat 97% RA. Lungs are clear, no wheezing.
== END 2021-12-19 10:27 | disposition home or self-care (01) ==
PROVIDERS: Emergency Provider Emergency Medicine Emergency Medical Services; PCP Internal Medicine
DX: J45.909 Unspecified asthma, uncomplicated (principal); Z20.822 Contact with and (suspected) exposure to COVID-19
CPT/HCPCS: 87635; 94640; 94644; 99284

== ENCOUNTER 2021-12-20 08:57 | Emergency (ER) | payer OTHER, SELFPAY ==
--- NOTE | ~2021-12-20 | XR_ITS ---
EXAMINATION: XR CHEST CLINICAL INFORMATION: Shortness of breath and fever COMPARISON: 10/24/2020 TECHNIQUE: 2 views of the chest were obtained. FINDINGS: Lungs are well-inflated and clear. Trachea is midline in position. No interstitial disease, consolidation or mass. No pleural effusion or pneumothorax. Cardiac silhouette and pulmonary vessels are normal in size. The mediastinum and jozef have normal contour. The visualized bones and upper abdomen are unremarkable. XR/XR chest 2V IMPRESSION: No evidence of pneumonia. No acute cardiopulmonary abnormality.
[2021-12-20 09:11] VITALS: BP 107/59; PULSE 89; RESP 16; TEMP 36.4; O2SAT 95; BMI 23.6
--- NOTE | 2021-12-20 09:21 | ED.URI ---
HPI - URI/Sore Throat General Chief Complaint: Upper Respiratory Symptoms Stated Complaint: fever/coughing/difficulty breathing Time Seen by Provider: 12/20/21 09:06 Source: patient Mode of arrival: ambulatory Limitations: no limitations History of Present Illness HPI Narrative: Patient presents to the emergency department complaining of wheezing and shortness of breath with cough x1 week. Generalized fatigue. States her daughter was ill currently with pneumonia and she is concerned that she may have the same. States she was seen in the emergency department yesterday but is feeling worse today. Reports subjective fevers, no shaking chills, no chest pain, no palpitations, no nausea, no vomiting, no abdominal pain. Related Data Home Medications Medication Instructions Recorded Confirmed ipratropium 0.5 mg-albuterol 3 mg ml INHALATION Q6H 05/11/20 12/01/21 (2.5 mg base)/3 mL nebulization soln Previous Rx's Medication Instructions Recorded acetaminophen 500 mg tablet 500 mg PO Q6H PRN #20 tab 07/18/20 (Tylenol Extra Strength) fluoxetine 10 mg capsule 10 mg PO DAILY #30 cap 09/07/20 fexofenadine 180 mg tablet 180 mg PO DAILY 90 Days #90 tab 12/01/21 (Padmini Allergy) benralizumab 30 mg/mL subcutaneous 30 mg SUBCUT Q8W 28 Days #1 ml 12/17/21 syringe (Fasenra) Symbicort 160 mcg-4.5 2 puff INHALATION BID 30 Days #1 12/18/21 mcg/actuation HFA aerosol inhaler ea NS (budesonide-formoterol) albuterol sulfate 90 mcg/actuation 1 puff PO Q4H PRN 30 Days #8.5 g 12/18/21 aerosol inhaler albuterol sulfate 90 mcg/actuation 2 puff INHALATION Q6H PRN #8.5 g 12/19/21 aerosol inhaler azithromycin 250 mg tablet See Rx Instructions .ROUTE 12/20/21 .COMPLEX #6 tab Allergies Allergy/AdvReac Type Severity Reaction Status Date / Time ibuprofen [From MOTRIN] AdvReac Intermediate N/V, Verified 12/01/21 12:48 vomiting prednisone AdvReac pain Verified 12/17/21 11:46 Review of Systems Review of Systems: Constitutional : No Fever, No Chills ENT/Mouth : No Hoarseness, No sore throat, No Rhinorrhea Eyes: No Redness, No Discharge, No Vision Changes Cardiovascular : No Chest Pain, positive SOB, positive Dyspnea on Exertion, No Edema Respiratory : positive Cough, No Sputum, positive Wheezing, Gastrointestinal : No Nausea, No Vomiting, No Diarrhea, No abdominal Pain Genitourinary : No Dysuria, No Hematuria Musculoskeletal : No joint pain, No Myalgias Skin : No rash Neuro : No Weakness, No Numbness, No Headache Psych : No anxiety, depression Heme/Lymph: No Bruising, No Bleeding Endocrine : No Polyuria, No Polydipsia Yes all other systems are reviewed and are negative [facility] Past Medical History Attestation statement: The following information was validated with the patient. Source: old records reviewed Medical History Abnormal renal finding Eczema Environmental allergies Rhinitis Surgical History History of cholecystectomy History of tonsillectomy and adenoidectomy Hx of tubal ligation Family History Family History Mother Asthma Bipolar 1 disorder Hypertension Schizophrenia Father No problems noted. Maternal Grandmother Hypertension Family/Other Breast cancer Social History Social History Housing: Apartment Alcohol intake: current Alcohol intake frequency: does not drink Patient Tobacco Use Status: Never used Tobacco e-Cigarette/Vaping Use: Never Used Second Hand Smoke Exposure: No Substance Use Type: Marijuana Advance Directives: Yes Advance Directives on File: Yes Advance Directives Date on File: 10/24/20 Patient : No Current occupational status: disabled Cognitive needs: No Hearing needs: No Vision needs: No Physical Exam Vital Signs: Vital Signs: Last Vital Signs Temp 97.3 F 12/20/21 12:20 Pulse 74 12/20/21 12:20 Resp 16 12/20/21 12:20 BP 116/60 12/20/21 12:20 Pulse Ox 98 12/20/21 12:20 BMI result Body Mass Index 23.6 Vital signs have been reviewed as normal and appeared to be correct. Blood pressure normal.? Heart rate normal.? Respiration rate normal. Temperature normal.? Oxygen saturation normal. Appearance: Alert.?Oriented to person, place and time. No acute distress.?Normal affect. Eyes: Pupils equal, round and reactive to light.? ENT: Pharynx normal.?? Neck: Normal inspection.? Neck supple.?? CVS: Heart sounds normal. Normal heart rate and rhythm.? Pulses normal.?? Respiratory: No respiratory distress.? Lung sounds bilateral expiratory wheezing Abdomen: Soft and non-tender. Skin: Skin warm and dry.? Normal skin color.? Extremities: No lower extremity edema.? No calf ttp? Neuro: Moves all extremities spontaneously. Sensation intact bilaterally. No motor deficit.. Ambulates with normal steady gait. Course Course Course Narrative: Patient is a 26-year-old female with a past medical history of allergic rhinitis, bipolar, depression, thrombocytopenia, eczema, asthma presenting for evaluation of cough and shortness of breath. Patient was previously taking Fasenra injections for her asthma, but states she has not been receiving these for the past 4-5 months. Has a an appointment with pulmonology later this month to get back on the medication. Patient was evaluated in the emergency department yesterday regarding this seems symptoms. Lung sounds improved after an albuterol nebulizer, COVID-19 testing was obtained resulted as negative. Declined any outpatient steroid treatment, to follow-up with pulmonology. She reports feeling worse today. Excretory wheezing bilaterally, states she has been using her albuterol inhaler at home with minimal relief. Will obtain influenza testing and chest x-ray to evaluate for consolidation/infiltrate. Reevaluation(s) Reevaluation #1: After albuterol nebulizer lung sounds are clear. Influenza testing is negative. Chest x-ray without evidence for acute cardiopulmonary abnormality. Symptoms are most consistent with bronchitis likely secondary to an upper respiratory infection, that is causing exacerbation of her asthma. I again discussed consideration of oral steroids which she declines. Advised to continue using her albuterol inhaler, will provide a post treatment with azithromycin, outpatient follow-up with her electrical designer as scheduled, discussed reasons to return back to the emergency department, all questions were answered, and she was discharged home in stable condition. Time: 12:03 MDM - URI/Sore Throat Medical Records Attestation: I reviewed the patient's medical records. Lab Data Attestation: I reviewed the patient's lab results. Labs: Lab Results 05/07/22 Range/Units 09:20 Influenza Type A (MIA) Negative (Negative) Influenza Type B (MIA) Negative (Negative) Influenza A & B Note See Note Imaging Data Chest x-ray: Radiologist's impression: XR/XR chest 2V IMPRESSION: No evidence of pneumonia. No acute cardiopulmonary abnormality. Discharge Plan Discharge Clinical Impression: Bronchitis, Upper respiratory infection Patient Disposition: Home, Self-Care Instructions: Acute Bronchitis (ED) Additional Instructions: Continue using your uteri Heller as needed. You have been given a new prescription for azithromycin, please complete this entire course. Contact your primary care provider to schedule follow-up visit with regard to 5 days. Follow-up with your electrical designer as scheduled at the end of the month. Return to the emergency department any new or worsening symptoms or concerns Prescriptions: New azithromycin 250 mg tablet See Rx Instructions .ROUTE .COMPLEX Qty: 6 0RF Rx Instructions: For 250 mg dose pack: take 500 mg today (day 1), then 250 mg for 4 days (days 2-5) No Action fluoxetine 10 mg capsule 10 mg PO DAILY Qty: 30 6RF Fasenra 30 mg/mL syringe 30 mg subcut Q8W 28 Days Qty: 1 12RF budesonide-formoterol [Symbicort] 160-4.5 mcg/actuation HFA aerosol inhaler 2 puff inhalation BID 30 Days Qty: 1 6RF albuterol sulfate 90 mcg/actuation HFA aerosol inhaler 1 puff PO Q4H PRN (Reason: bronchospasm) 30 Days Qty: 8.5 0RF acetaminophen [Tylenol Extra Strength] 500 mg tablet 500 mg PO Q6H PRN (Reason: pain or fever) Qty: 20 0RF albuterol sulfate 90 mcg/actuation HFA aerosol inhaler 2 puff inhalation Q6H PRN (Reason: sob) Qty: 8.5 0RF fexofenadine [Padmini Allergy] 180 mg tablet 180 mg PO DAILY 90 Days Qty: 90 3RF ipratropium-albuterol 0.5 mg-3 mg(2.5 mg base)/3 mL solution for nebulization inhalation Q6H 0RF Interventions: ED Discharge Assessment Last Done: 12/20/21 12:35 Discharge Date/Time: 12/20/21 12:36
[2021-12-20] MEDS: Albuterol Sulfate (0.083%) 2.5 MG/3 ML VIAL.NEB 7.5 MG INHALE (09:37)
[2021-12-20 09:39] VITALS: PULSE 87; RESP 18; O2SAT 95
[2021-12-20 09:41] LABS: Influenza A Negative (Negative); Influenza B2 Negative (Negative)
[2021-12-20 12:04] VITALS: PULSE 85; O2SAT 91
[2021-12-20 12:20] VITALS: BP 116/60; PULSE 74; RESP 16; TEMP 36.3; O2SAT 98
== END 2021-12-20 12:36 | disposition home or self-care (01) ==
PROVIDERS: Nurse Practitioner Family; Emergency Provider Emergency Medicine Emergency Medical Services; PCP Internal Medicine
DX: J06.9 Acute upper respiratory infection, unspecified (principal); J40 Bronchitis, not specified as acute or chronic; J45.909 Unspecified asthma, uncomplicated; Z20.822 Contact with and (suspected) exposure to COVID-19
CPT/HCPCS: 71046; 87502; 94640; 94644; 99284

== ENCOUNTER 2022-02-05 09:22 | Outpatient (REF) | payer OTHER, SELFPAY | END 2022-02-05 09:23 | disposition home or self-care (01) | LOC: HO.MDS 09:22 | PROVIDERS: PCP Internal Medicine; Visit Provider Internal Medicine Pulmonary Disease | DX: J45.50 Severe persistent asthma, uncomplicated (principal) | CPT/HCPCS: 96372; J0517 ==

== ENCOUNTER 2022-03-09 11:18 | Emergency (ER) | payer OTHER, SELFPAY ==
--- NOTE | ~2022-03-09 | XR_ITS ---
EXAMINATION: XR CHEST CLINICAL INFORMATION: Chest pain, fever, Covid COMPARISON: Chest x-ray 12/20/2021 TECHNIQUE: Frontal view of the chest was obtained. FINDINGS: The lungs are clear. No airspace consolidation, pleural effusion, or pneumothorax. The cardiomediastinal silhouette is within normal limits. No acute osseous injury. XR/XR chest 1V IMPRESSION: No acute pulmonary process.
--- NOTE | 2022-03-09 11:19 | ECG_ITS ---
Test Reason : chest pain Blood Pressure : / mmHG Vent. Rate : 096 BPM Atrial Rate : 096 BPM P-R Int : 140 ms QRS Dur : 076 ms QT Int : 336 ms P-R-T Axes : 068 046 038 degrees QTc Int : 424 ms Normal sinus rhythm Normal ECG When compared with ECG of 18-JUL-2020 09:37, No significant change was found Referred By: Generic ED Physician Electronically Signed By:KAYLA GOMEZ
[2022-03-09 11:35] VITALS: BP 109/72; PULSE 99; RESP 18; TEMP 37.6; O2SAT 100; BMI 21.7
[2022-03-09 11:46] LABS: MANUAL DIFF FLAG NO
[2022-03-09 11:50] LABS: Basophils Percent Auto 0.2 % (0-2); Hematocrit 37.1 % (37.0-47.0); Hemoglobin 12.6 g/dl (12.0-16.0); Imm Gran Abs Auto 0.01 X10*3/uL (0.00-0.03); Imm Gran Pct Auto 0.2 % (0.0-0.4); Lymphocytes Absolute Auto 0.3 X10*3/uL (1.2-4.9); Mean Corpuscular Hemoglobin 30.7 pg (27.0-33.0); Mean Corpuscular Volume 90.3 fL (80.0-98.0); Mean Platelet Volume 10.7 fL (9.4-12.3); Monocytes Absolute Auto 0.4 X10*3/uL (0.1-1.2); Monocytes Percent Auto 7.8 % (2-11); Neutrophils Absolute Auto 3.9 x10*3/uL (2.0-8.3); Neutrophils Percent Auto 84.8 % (45-73); Platelet Count 156 X10*3/uL (160-400); Red Blood Count 4.11 X10*6/uL (4.20-5.50); Red Cell Distribution Width 13.5 % (11.0-16.0); White Blood Count 4.6 X10*3/uL (4.8-10.8)
[2022-03-09 11:56] LABS: COVID-19 Test Positive (Negative); IDNOW Serial# 55D5AD1C
[2022-03-09 12:04] LABS: Alanine Aminotransferase 9 U/L (0-31); Albumin Level 4.2 g/dL (3.5-5.0); Alkaline Phosphatase 75 U/L (39-117); Anion Gap 12 (12-20); Aspartate Amino Transferase 15 U/L (5-31); Bilirubin Total 0.5 mg/dL (0.0-1.0); Blood Urea Nitrogen 6 mg/dL (9-16); Calcium 8.9 mg/dL (8.4-10.2); Carbon Dioxide 22 mmol/L (22-29); Chloride 105 mmol/L (96-108); Creatinine Clr Calc Pharmacy 92.4; Estimated Glomerular Filt Rate > 60; Glucose Random 86 mg/dL (60-115); Potassium 3.6 mmol/L (3.3-5.1); Sodium 135 mmol/L (135-145); Total Protein 7.5 g/dL (6.5-8.0)
[2022-03-09 12:08] LABS: Troponin-I High Sensitivity < 3.5 ng/L (<3.5-17.0)
[2022-03-09 12:32] LABS: Influenza A Negative (Negative); Influenza B2 Negative (Negative)
--- NOTE | 2022-03-09 15:16 | ED.GENADULT ---
HPI - General Adult General Chief complaint: General Medical Stated complaint: Chest pain/Fever Time Seen by Provider: 03/09/22 15:05 Source: patient, RN notes reviewed and old records reviewed Mode of arrival: ambulatory Limitations: no limitations History of Present Illness HPI narrative: This is a [id number]-female, with a past medical history of asthma, who presents to the emergency department with complaints of fevers, body aches, nausea, vomiting, cough and shortness of breath x 3 days. Patient states that she has been taking tylenol for her symptoms which has provided her with moderate relief. She states that she also has been using her albuterol inhaler every 4 hours, which has provided her with moderate relief. She states that she has had no sick contacts. She is not COVID vaccinated. She otherwise denies any sore throat, ear pain, diarrhea, abdominal pain, bloody or black stool. She denies any other complaints or concerns at this time. MD complaint: Fever, cough, body aches x 3 days Onset (ago): day(s) Location: chest Radiation: back Severity: moderate Severity scale (1-10): 5 Quality: aching Pain Consistency: constant Relieving factors: medication Exacerbating factors: none Associated symptoms: denies other symptoms Treatments prior to arrival: other (Tylenol) Related Data Home Medications Medication Instructions Recorded Confirmed ipratropium 0.5 mg-albuterol 3 mg ml inhalation Q6H 05/11/20 12/01/21 (2.5 mg base)/3 mL nebulization soln Previous Rx's Medication Instructions Recorded acetaminophen 500 mg tablet 500 mg PO Q6H PRN pain or fever 07/18/20 (Tylenol Extra Strength) #20 tabs fluoxetine 10 mg capsule 10 mg PO DAILY #30 caps 09/07/20 fexofenadine 180 mg tablet 180 mg PO DAILY 90 days #90 tabs 12/01/21 (Padmini Allergy) benralizumab 30 mg/mL subcutaneous 30 mg subcut Q8W 28 days #1 mL 12/17/21 syringe (Fasenra) Symbicort 160 mcg-4.5 2 puff inhalation BID 30 days #1 ea 12/18/21 mcg/actuation HFA aerosol inhaler (budesonide-formoterol) albuterol sulfate 90 mcg/actuation 1 puff PO Q4H PRN bronchospasm 30 12/18/21 aerosol inhaler days #8.5 grams albuterol sulfate 90 mcg/actuation 2 puff inhalation Q6H PRN sob #8.5 12/19/21 aerosol inhaler grams azithromycin 250 mg tablet See Rx Instructions PO .COMPLEX #6 12/20/21 tabs Allergies Allergy/AdvReac Type Severity Reaction Status Date / Time ibuprofen [From MOTRIN] AdvReac Intermediate N/V, Verified 12/01/21 12:48 vomiting prednisone AdvReac pain Verified 12/17/21 11:46 Review of Systems Review of Systems: Constitutional: + Fever, No Chills ENT/Mouth: No sore throat, No Rhinorrhea, No Swallowing Difficulty Eyes: No Eye Pain, No Swelling, No Redness Cardiovascular: +Chest Pain, +SOB, No Orthopnea, No Edema Respiratory: +Cough, No Sputum, No Wheezing, No dyspnea Gastrointestinal: +Nausea, +Vomiting, No Diarrhea, No abdominal Pain, No Hematochezia, No Melena Genitourinary: No Dysuria, No Urinary Frequency, No Hematuria Musculoskeletal: +myalgias, No joint pain Skin: No Skin Lesions, No rash Neuro: No Weakness, No Numbness, No Dizziness, No Headache Psych: No Anxiety/Panic, No Depression Heme/Lymph: No Bruising, No Lymphadenopathy Endocrine: No Polyuria, No Polydipsia PMFSH Past Medical History Attestation statement: The following information was validated with the patient. Medical History Abnormal renal finding Eczema Environmental allergies Rhinitis Surgical History History of cholecystectomy History of tonsillectomy and adenoidectomy Hx of tubal ligation Family History Family History Mother Asthma Bipolar 1 disorder Hypertension Schizophrenia Father No problems noted. Maternal Grandmother Hypertension Family/Other Breast cancer Social History Social History Housing: Apartment Alcohol intake: current Alcohol intake frequency: does not drink Patient Tobacco Use Status: Never used Tobacco e-Cigarette/Vaping Use: Never Used Second Hand Smoke Exposure: No Substance Use Type: Marijuana Advance Directives: Yes Advance Directives on File: Yes Advance Directives Date on File: 10/24/20 Current occupational status: disabled Cognitive needs: No Hearing needs: No Vision needs: No Physical Exam ED Vital Signs: Vital Signs - 24 hr 03/09/22 11:35 Temperature 99.7 F Pulse Rate 99 Respiratory Rate 18 Blood Pressure 109/72 Pulse Oximetry 100 Oxygen Delivery Method Room Air BMI result Body Mass Index 21.7 Appearance: Alert. Oriented X3. No acute distress. Resting comfortably in blanket. Eyes: Pupils equal, round and reactive to light. +photophobia ENT: Pharynx normal. Tonsils are nonerythematous, nonexudative. Uvula is midline. Neck: Normal inspection. Neck supple. CVS: Tachycardic, normal rhythm. Respiratory: Lungs clear to auscultation bilaterally, no wheezes, rhonchi or rales. No respiratory distress. Breath sounds normal. Abdomen: Soft and nontender. +BS x4 Skin: Skin warm and dry. Normal skin color. Normal skin turgor. No rashes. Extremities: No lower extremity edema. Musculoskeletal: No Cervical spine, thoracic spine, or lumbar spine tenderness. Mild tenderness to the lumbar paraspinous muscles. Negative straight leg raise. Neuro: Oriented X 3. No motor deficit. No sensory deficit. Course Course Course Narrative: This is a [id number]-female presenting today with complaints of 3 days of fever, body aches, nausea, vomiting, headaches, shortness of breath and cough x 3 days. Patient is afebrile at 99.7, and O2 saturating at 100% on room air. Lung sounds clear to auscultation bilaterally. COVID testing was positive today. EKG was unremarkable, troponin was within normal limits. Chest x-ray ordered and is pending. Patient medicated with Tylenol 975mg PO. Reevaluation(s) Reevaluation #1: Patient re-evaluated. Chest x-ray unremarkable. Work-up reassuring. Patient's symptoms consistent with COVID-19 infection. Patient given precautionary discharge instructions. Patient understands and agrees with plan. Time: 16:05 Medical Decision Making Lab Data Result diagrams: 03/09/22 11:39 03/09/22 11:39 Labs: Lab Results 03/09/22 03/09/22 03/09/22 Range/Units 11:35 11:35 11:39 WBC 4.6 L (4.8-10.8) X10*3/uL RBC 4.11 L (4.20-5.50) X10*6/uL Hgb 12.6 (12.0-16.0) g/dl Hct 37.1 (37.0-47.0) % MCV 90.3 (80.0-98.0) fL MCH 30.7 (27.0-33.0) pg MCHC 34.0 (31.0-35.0) g/dl RDW 13.5 (11.0-16.0) % Plt Count 156 L (160-400) X10*3/uL MPV 10.7 (9.4-12.3) fL Immature Gran % (Auto) 0.2 (0.0-0.4) % Neut % (Auto) 84.8 H (45-73) % Lymph % (Auto) 7.0 L (20-40) % [place] % (Auto) 7.8 (2-11) % Eos % (Auto) 0.0 (0-4) % Baso % (Auto) 0.2 (0-2) % Lymph # (Auto) 0.3 L (1.2-4.9) X10*3/uL [place] # (Auto) 0.4 (0.1-1.2) X10*3/uL Eos # (Auto) 0.0 (0.0-0.4) X10*3/uL Baso # (Auto) 0.0 (0.0-0.2) X10*3/uL Abs Immat Gran (auto) 0.01 (0.00-0.03) X10*3/uL Absolute Neuts (auto) 3.9 (2.0-8.3) x10*3/uL Absolute Nucleated RBC 0.000 (0.0-0.012) X10*3/uL Nucleated RBC % (auto) 0.0 (0.0-0.2) /100WBC Sodium (135-145) mmol/L Potassium (3.3-5.1) mmol/L Chloride (96-108) mmol/L Carbon Dioxide (22-29) mmol/L Anion Gap (12-20) BUN (9-16) mg/dL Creatinine (0.5-1.4) mg/dL Estim Creat Clear Calc Estimated GFR Random Glucose (60-115) mg/dL Calcium (8.4-10.2) mg/dL Total Bilirubin (0.0-1.0) mg/dL AST (5-31) U/L ALT (0-31) U/L Alkaline Phosphatase (39-117) U/L Troponin I High Sens (<3.5-17.0) ng/L Total Protein (6.5-8.0) g/dL Albumin (3.5-5.0) g/dL COVID-19 ([place]) Positive A (Negative) COVID-19 Clin Com See Note Influenza Type A (MIA) Negative (Negative) Influenza Type B (MIA) Negative (Negative) Influenza A & B Note See Note 03/09/22 03/09/22 Range/Units 11:39 11:39 WBC (4.8-10.8) X10*3/uL RBC (4.20-5.50) X10*6/uL Hgb (12.0-16.0) g/dl Hct (37.0-47.0) % MCV (80.0-98.0) fL MCH (27.0-33.0) pg MCHC (31.0-35.0) g/dl RDW (11.0-16.0) % Plt Count (160-400) X10*3/uL MPV (9.4-12.3) fL Immature Gran % (Auto) (0.0-0.4) % Neut % (Auto) (45-73) % Lymph % (Auto) (20-40) % [place] % (Auto) (2-11) % Eos % (Auto) (0-4) % Baso % (Auto) (0-2) % Lymph # (Auto) (1.2-4.9) X10*3/uL [place] # (Auto) (0.1-1.2) X10*3/uL Eos # (Auto) (0.0-0.4) X10*3/uL Baso # (Auto) (0.0-0.2) X10*3/uL Abs Immat Gran (auto) (0.00-0.03) X10*3/uL Absolute Neuts (auto) (2.0-8.3) x10*3/uL Absolute Nucleated RBC (0.0-0.012) X10*3/uL Nucleated RBC % (auto) (0.0-0.2) /100WBC Sodium 135 (135-145) mmol/L Potassium 3.6 (3.3-5.1) mmol/L Chloride 105 (96-108) mmol/L Carbon Dioxide 22 (22-29) mmol/L Anion Gap 12 (12-20) BUN 6 L (9-16) mg/dL Creatinine 0.69 (0.5-1.4) mg/dL Estim Creat Clear Calc 92.4 Estimated GFR > 60 Random Glucose 86 (60-115) mg/dL Calcium 8.9 (8.4-10.2) mg/dL Total Bilirubin 0.5 (0.0-1.0) mg/dL AST 15 D (5-31) U/L ALT 9 (0-31) U/L Alkaline Phosphatase 75 (39-117) U/L Troponin I High Sens < 3.5 (<3.5-17.0) ng/L Total Protein 7.5 (6.5-8.0) g/dL Albumin 4.2 (3.5-5.0) g/dL COVID-19 ([place]) (Negative) COVID-19 Clin Com Influenza Type A (MIA) (Negative) Influenza Type B (MIA) (Negative) Influenza A & B Note ECG Data Attestation: I personally reviewed and interpreted this ECG as follows: Prior ECG tracings: available for review Interpretation: NSR at 96bpm with a MS interval of 140ms, QTC 424ms. No ST elevation or depression. No acute ischemic changes. Critical Care Time Critical Care Time Critical Care Time: No Discharge Plan Discharge Clinical Impression: COVID-19 Patient Disposition: Home, Self-Care Instructions: Covid-19 Viral Syndrome and Novel Coronavirus (ED) Hey/Ath Additional Instructions: You tested positive for COVID-19 today. Your chest x-ray and lab work are normal. Please take Acetaminophen and/or Ibuprofen as directed as needed for symptomatic relief. Drink plenty of fluids and get plenty of rest. If you develop new or worsening symptoms call 911 or come back to the ER for further evaluation. Prescriptions: No Action fluoxetine 10 mg capsule 10 mg PO DAILY Qty: 30 6RF Fasenra 30 mg/mL syringe 30 mg subcut Q8W 28 Days Qty: 1 12RF budesonide-formoterol [Symbicort] 160-4.5 mcg/actuation HFA aerosol inhaler 2 puff inhalation BID 30 Days Qty: 1 6RF albuterol sulfate 90 mcg/actuation HFA aerosol inhaler 1 puff PO Q4H PRN (Reason: bronchospasm) 30 Days Qty: 8.5 0RF acetaminophen [Tylenol Extra Strength] 500 mg tablet 500 mg PO Q6H PRN (Reason: pain or fever) Qty: 20 0RF albuterol sulfate 90 mcg/actuation HFA aerosol inhaler 2 puff inhalation Q6H PRN (Reason: sob) Qty: 8.5 0RF azithromycin 250 mg tablet See Rx Instructions .ROUTE .COMPLEX Qty: 6 0RF Rx Instructions: For 250 mg dose pack: take 500 mg today (day 1), then 250 mg for 4 days (days 2-5) fexofenadine [Padmini Allergy] 180 mg tablet 180 mg PO DAILY 90 Days Qty: 90 3RF ipratropium-albuterol 0.5 mg-3 mg(2.5 mg base)/3 mL solution for nebulization inhalation Q6H
[2022-03-09] MEDS: Acetaminophen 325 MG TABLET 975 MG PO (15:21)
== END 2022-03-09 16:42 | disposition home or self-care (01) ==
PROVIDERS: Emergency Provider Emergency Medicine; PCP Internal Medicine
DX: R07.89 Other chest pain (principal); R50.9 Fever, unspecified; M79.10 Myalgia, unspecified site; R51.9 Headache, unspecified; Z20.822 Contact with and (suspected) exposure to COVID-19; Z79.899 Other long term (current) drug therapy
CPT/HCPCS: 71045; 80053; 84484; 85025; 87502; 87635; 93005; 99283

== ENCOUNTER 2022-05-08 15:26 | Outpatient (REF) | payer OTHER, SELFPAY | END 2022-05-08 15:27 | disposition home or self-care (01) | LOC: HO.MDS 15:26 | PROVIDERS: Visit Provider Internal Medicine Pulmonary Disease | DX: J45.50 Severe persistent asthma, uncomplicated (principal) | CPT/HCPCS: 96372; J0517 ==

== ENCOUNTER 2022-07-14 08:52 | Emergency (ER) | payer OTHER, SELFPAY ==
--- NOTE | ~2022-07-14 | XR_ITS ---
EXAMINATION: XR CHEST CLINICAL INFORMATION: Cough and vomiting COMPARISON: None TECHNIQUE: 2 views of the chest were obtained. FINDINGS: No significant abnormality is noted involving the heart, lungs, mediastinum, bony thorax or soft tissues. XR/XR chest 2V IMPRESSION: Unremarkable chest examination.
--- NOTE | ~2022-07-14 | US_ITS ---
EXAMINATION: US ABDOMEN COMPLETE CLINICAL INFORMATION: Nausea, vomiting, diarrhea, upper abdominal pain. COMPARISON: Most recent CT abdomen/pelvis dated 10/08/2020. TECHNIQUE: Real-time imaging of the abdominal viscera. FINDINGS: PANCREAS: Normal. ABDOMINAL AORTA: The proximal, mid, and distal segments are normal in caliber. INFERIOR VENA CAVA: Visualized portions are normal. LIVER: Unremarkable. The liver is normal in size. The liver contour is normal. Parenchymal echogenicity is normal. No focal hepatic lesion. There is no intrahepatic biliary duct dilatation seen. GALLBLADDER: Status post cholecystectomy. No right upper quadrant tenderness during the examination. COMMON BILE DUCT: Normal in caliber measuring 0.5 cm in diameter. RIGHT KIDNEY: Unremarkable. No hydronephrosis. No renal calculi or focal parenchymal lesions. The kidney measures 10.3 cm in maximum dimension. LEFT KIDNEY: Unremarkable. No hydronephrosis. No renal calculi or focal parenchymal lesions. The kidney measures 11.7 cm in maximum dimension. SPLEEN: Unremarkable. The spleen measures 10.7 cm in maximum dimension. FREE FLUID: None. US/US abdomen complete IMPRESSION: Unremarkable examination. Status post cholecystectomy. No intra- or extrahepatic biliary ductal dilatation.
[2022-07-14 09:42] VITALS: BP 116/95; PULSE 95; RESP 16; TEMP 36.6; O2SAT 100; BMI 20.7
[2022-07-14] MEDS: Ondansetron ODT 4 MG TAB.RAPDIS TRANSLINGU (09:48)
--- OUTSIDE RECORDS SUMMARY | 2022-07-14 10:36 | XMS_ITS | Continuity of Care Document ---
:1995 Author Organization [facility] Address [address] [place] [address]- Care Team Providers Name Role Phone Zari Mosley DO Primary Care Physician [place] [facility] [place] - 10/27/[address] [address]- Discharge Disposition: A-D/C Home Attending Physician: Moni JENSEN, Denny Marquez Admitting Physician: Moni JENSEN, Denny Marquez Referring Physician: Not on Staff, Referring MD Allergies, Adverse Reactions, Alerts Substance Reaction Severity Status Motrin Active Immunizations Given and Recorded Vaccine Date Status Refusal Reason tetanus/diphtheria/pertussis, acel(Tdap) 08/21/16 Given influenza virus vaccine, inactivated 08/21/16 Given Medications albuterol CFC free 90 mcg/inh inhalation aerosol INHALE 1 TO 2 PUFFS EVERY 4 TO 6 HOURS NEEDED FOR DIFFICULTY BREATHING Start Date: 06/04/19 Status: Orderedfamotidine 10 mg oral tablet 1 tablet = 10 mg, By Mouth, 2 times a day, # 28 tablet, 0 Refills, Maintenance, 10/27/21 4:50:00 EDT, Tablet, [id number], Partial fill upon patient request if the prescription is for a scheduleII opioid drug. Start Date: 10/27/21 Status: Orderedondansetron 4 mg oral tablet, disintegrating 1 tablet = 4 mg, By Mouth, Every 8 hours, PRN Nausea & Vomiting, # 12 tablet, 0 Refills, Maintenance, 10/27/21 4:50:00 EDT, Tablet, [id number], Partial fill upon patient request if the prescription is for a schedule II opioid drug. Start Date: 10/27/21 Stop Date: 10/30/21 Status: OrderedPROzac 20 mg oral capsule 20 mg, 1, capsule, By Mouth, Daily, # 90 capsule, Refills 0, Tot. Refills 0, Maintenance, 09/14/16 12:03:18, Route to Pharmacy Electronically, [id number], [facility] [id number] Start Date: 09/14/16 Status: OrderedSymbicort 80mcg/4.5mcg Inhaler 2, puffs, Inhalation, 2 times a day, # 60 puffs, Refills 0, Tot. Refills 0, Maintenance, 06/04/19 9:38:56 EDT, Aerosol, Route to Pharmacy Electronically, [id number], [facility][id number] Start Date: 06/04/19 Status: OrderedTylenol 325 mg oral capsule 1 capsule = 325 mg, By Mouth, Every 4 hours, PRN as needed for pain, # 42 capsule, 0 Refills, Maintenance, 11/26/16 11:06:50, Capsule Start Date: 11/26/16 Stop Date: 12/03/16 Status: Ordered Problem List Condition Effective Dates Status Health Status Informant Abnormal uterine bleeding Active (AUB)(Confirmed) Major depression, chronic(Confirmed) Active Vital Signs Most recent to oldest 1 2 3 [Reference Range]: Oxygen Saturation [94-100 %] 99 % 100 % 99 % (10/27/21 5:13 AM) (10/27/21 4:13 AM) (10/27/21 2:3 4 AM) Pulse Rate [55-90 bpm] 87 bpm 96 bpm 92 bpm (10/27/21 5:13 AM) *H* *H* (10/27/21 4:13 AM) (10/27/21 2:34 AM) Blood Pressure [90-138/55-84 mm 127/95 mm Hg 154/131 mm Hg 110/39 mm Hg Hg] (10/27/21 5:13 AM) *H* (10/27/21 2:34 AM) (10/27/21 4:13 AM) Respiratory Rate [16-30 br/min] 18 br/min 20 br/min 22 br/min (10/27/21 5:13 AM) (10/27/21 4:13 AM) (10/27/21 2:3 4 AM) Temperature [96.8-100.4 DegF] 98.2 DegF (10/27/21 2:08 AM) Mode of Delivery (Oxygen) Room air Room air Room a ir (10/27/21 5:13 AM) (10/27/21 4:13 AM) (10/27/21 2:3 4 AM) Blood pressure sites Arm, right Arm, right Arm, left (10/27/21 5:13 AM) (10/27/21 4:13 AM) (10/27/21 2:3 4 AM) Temperature Route Oral (10/27/21 2:08 AM) Social History Social History Type Response Smoking Status Never smoker; Tobacco user i n household: No entered on: 06/03/16 Sex
--- OUTSIDE RECORDS SUMMARY | 2022-07-14 10:36 | XMS_ITS | Continuity of Care Document ---
:1995 Author Organization [facility] Address [address] [place] [id number]- Care Team Providers Name Role Phone Zari Mosley DO Primary Care Physician Encounter [facility] [place] Date(s): 07/12/22 - 07/12/[address] [address]- Discharge Disposition: A-D/C Walkout Attending Physician: Not on Staff, Attending MD Admitting Physician: Not on Staff, Admitting MD Referring Physician: Not on Staff, Referring MD [...] Maintenance, 09/14/16 12:03:18, Route to Pharmacy Electronically, [id number], [facility] [id number] Start Date: 09/14/16 Status: OrderedSymbicort 80mcg/4.5mcg Inhaler 2, puffs, Inhalation, 2 times a day, # 60 puffs, Refills 0, Tot. Refills 0, Maintenance, 06/04/19 9:38:56 EDT, Aerosol, Route to Pharmacy Electronically, [id number], [facility] #[id number] Start Date: 06/04/19 Status: OrderedTylenol 325 mg oral capsule 1 capsule = 325 mg, By Mouth, Every 4 hours, PRN as needed for pain, # 42 capsule, 0 Refills, Maintenance, 11/26/16 11:06:50, Capsule Start Date: 11/26/16 Stop Date: 12/03/16 Status: Ordered Problem List Condition Confirmation Course Effective Dates Status Health Stat us Informant Abnormal uterine Confirmed Active bleeding (AUB) Major depression, Confirmed Active chronic Vital Signs Most recent to oldest [Reference Range]: 1 Oxygen Saturation [94-100 %] 94 % (07/12/22 6:56 PM) Pulse Rate [55-90 bpm] 83 bpm (07/12/22 6:56 PM) Blood Pressure [90-138/55-84 mm Hg] 113/54 mm Hg (07/12/22 6:56 PM) Respiratory Rate [16-30 br/min] 12 br/min *L* (07/12/22 6:56 PM) Temperature [96.8-100.4 DegF] 98.5 DegF (07/12/22 6:56 PM) Mode of Delivery (Oxygen) Room air (07/12/22 6:56 PM) Blood pressure sites Arm, right (07/12/22 6:56 PM) Temperature Route Oral (07/12/22 6:56 PM) Social History Social History Type Response Smoking Status Never smoker; Tobacco user i n household: No entered on: 06/03/16 Sex Patient Care team information Care Team PersonnelName: Birdie Dominique RN Position: [facility] OB RN Member Role: Primary Care Nurse Name: Zari Mosley DO Position: [facility] Outreach Member Role: PCP Address: Address: [address] [place] [address]- Care Team Related PersonsName: KOKI HEARN Address: home [address] [address] Name: MEG JOE Address: [address] [place] [address]
--- NOTE | 2022-07-14 10:53 | ED_ITS ---
HPI - Nausea/Vomiting/Diarrhea General Chief complaint: Nausea/Vomiting/Diarrhea Stated complaint: Vomiting Time Seen by Provider: 07/14/22 10:29 Source: patient Mode of arrival: ambulatory Limitations: no limitations History of Present Illness HPI Narrative: 27 year old female with PMH of Bipolar 1 disorder, major depressive disorder, asthma and eczema presents today with a 1 week history of nausea, vomiting and diarrhea. Patient also reports fever, chills and states that she has been taking OTC tylenol whenever she feels warm.She reports loss of appetite and abdominal pain that began few days after the nausea and vomiting. Patient denies radiation of abdominal pain to any part of her body. Patient reports 6-8 episodes of diarrhea almost everyday and denies any blood in her stools. She also reports vomit usually has some green contents in it with an acidic taste but denies any blood streaks. Patient reports that these symptoms have progressively worsened over time. Patient reports being seen at [facility] 2 days ago where she was given some IV fluids for dehydration. Patient states that these similar symptoms have happened before about a year or 2 ago when she had a stomach bug of which she was given some IV fluids and eventually got better. Patient is currently day 3 of her menses which she states are usually regular. Patient denies chest pain, SOB, recent sick contacts,trauma, eating anything out of the ordinary. MD elicited complaint: nausea, vomiting, diarrhea and abdominal pain Onset (ago): week(s) (1 week ago) Description of vomiting: food contents and watery Description of diarrhea: watery and loose Associated nausea: Yes Associated abdominal pain: Yes Location of pain: epigastric Radiation: does not radiate Pain consistency: intermittent Severity: moderate Pain scale (0-10): 6 Quality: aching Exacerbating factors: vomiting Relieving factors: none Associated symptoms: fever/chills, headaches and loss of appetite Treatment prior to arrival: analgesics (tylenol) Related Data Home Medications Medication Instructions Recorded Confirmed ipratropium 0.5 mg-albuterol 3 mg ml inhalation Q6H 05/11/20 04/06/22 (2.5 mg base)/3 mL nebulization soln Previous Rx's Medication Instructions Recorded acetaminophen 500 mg tablet 500 mg PO Q6H PRN pain or fever 07/18/20 (Tylenol Extra Strength) #20 tabs fluoxetine 10 mg capsule 10 mg PO DAILY #30 caps 09/07/20 fexofenadine 180 mg tablet 180 mg PO DAILY 90 days #90 tabs 12/01/21 (Padmini Allergy) benralizumab 30 mg/mL subcutaneous 30 mg subcut Q8W 28 days #1 mL 12/17/21 syringe (Fasenra) Symbicort 160 mcg-4.5 2 puff inhalation BID 30 days #1 ea 04/06/22 mcg/actuation HFA aerosol inhaler (budesonide-formoterol) albuterol sulfate 90 mcg/actuation 2 puff inhalation Q6H PRN sob #8.5 05/08/22 aerosol inhaler grams triamcinolone acetonide 0.5 % 1 appl topical BID 14 days #15 05/11/22 topical cream grams ondansetron HCl 4 mg tablet 4 mg PO Q8H PRN nausea and 07/13/22 vomiting #14 tabs ondansetron HCl 4 mg tablet 4 mg PO Q8H #14 tabs 07/14/22 Allergies Allergy/AdvReac Type Severity Reaction Status Date / Time ibuprofen [From MOTRIN] AdvReac Intermediate N/V, Verified 04/06/22 11:42 vomiting prednisone AdvReac pain Verified 04/06/22 11:42 Review of Systems Review of Systems: Constitutional : + Fever, + Chills, No Night Sweats, + Fatigue, + Malaise Cardiovascular : No Chest Pain, No SOB Respiratory : No Cough, No Sputum, No Wheezing, No Dyspnea Gastrointestinal : + Nausea, + Vomiting, No Diarrhea, + abdominal Pain, No Hematochezia, No Melena Genitourinary : No irregular bleeding, No Dysuria, No Urinary Frequency, No Hematuria,No Urinary Incontinence, No Urgency, No Flank Pain Musculoskeletal : No joint pain, + Myalgias, No Joint Swelling Skin : No Skin Lesions, No rash Neuro : No Weakness, No Numbness, No Paresthesias, No Loss of Consciousness, No Dizziness, No Headache Heme/Lymph: No Lymphadenopathy Endocrine : No Temperature Intolerance Yes all other systems are reviewed and are negative Gastrointestinal: Gastrointestinal: Reports nausea PMFSH Past Medical History Attestation statement: The following information was validated with the patient. Source: old records reviewed and nursing notes reviewed Medical History Abnormal renal finding Eczema Environmental allergies Rhinitis Surgical History History of cholecystectomy History of tonsillectomy and adenoidectomy Hx of tubal ligation Hx Last Menstrual Period: day 3 of her period. Family History Family History Mother Asthma Bipolar 1 disorder Hypertension Schizophrenia Father No problems noted. Maternal Grandmother Hypertension Family/Other Breast cancer Social History Social History Housing: Apartment Alcohol intake: never Patient Tobacco Use Status: Never used Tobacco e-Cigarette/Vaping Use: Never Used Second Hand Smoke Exposure: No Substance Use Type: Marijuana Advance Directives: Yes Advance Directives on File: Yes Advance Directives Date on File: 10/24/20 Current occupational status: disabled Cognitive needs: No Hearing needs: No Vision needs: No Physical Exam Vital Signs: Vital Signs: Last Vital Signs Temp 98 F 07/14/22 09:42 Pulse 95 07/14/22 09:42 Resp 16 07/14/22 09:42 BP 116/95 H 07/14/22 09:42 Pulse Ox 100 07/14/22 09:42 O2 Del Method 07/14/22 09:42 BMI result Body Mass Index 20.7 Diastolic BP is 116/95. all other vitals are WNL. Appearance: Alert. Oriented X3. No acute distress. Head: Normal external exam. Normocephalic. Eyes: PERRLA. EOMI. Conjunctiva appears pale. sclera normal. Eyelids normal. ENT: Pharynx normal. Uvula midline. Dry mucous membranes noted on inspection. No trismus noted. No drooling noted. No muffled voice noted. Neck: Normal inspection. Neck supple. FROM. No adenopathy. No meningeal signs. CVS: Normal heart rate and rhythm. Heart sound normal. No murmurs noted. Respiratory: No respiratory distress. Painless inspiration. Breath sounds normal. No wheezes/rales/rhonchi noted. Chest nontender. No accessory muscle usage noted or decreased air movement noted. Abdomen: Abdomen is soft and tender to palpation in epigastric region, non tender in all 4 quadrants. No guarding. No rigidity. Bowel sounds normal in all 4 quadrants. No distention noted. No organomegaly noted. No visible injury noted. No rebound tenderness. Negative Rovsing sign. Negative obturator's sign. Negative psoas sign. Negative Jeffery sign. Back: No CVA tenderness. Full range of motion noted. Skin: Skin warm and dry. Normal skin color. Normal skin turgor. No rashes/lesions/lacerations noted. Extremities: Extremities exhibit normal range of motion. Extremities nontender. Neuro: Oriented X 3. No motor deficit. No sensory deficit. ? Const: General: cooperative, no acute distress, alert, awake and tired appearing Nutritional Appearance: thin Orientation/consciousness: patient oriented x3 Limitations: no limitations GI: Inspection: Yes normal to inspection Palpation (GI): Soft to palpation and Tenderness to palpation present (GI) Auscultation: normal bowel sounds Neuro: General: patient oriented x3 Course Course Course Narrative: Patient is a 27 year old female with PMH of Bipolar 1 disorder, major depressive disorder, asthma and eczema who presents today with a 1 week history of nausea, vomiting and diarrhea. Patient also reports fever, chills and states that she has been taking OTC tylenol whenever she feels warm.She reports loss of appetite and abdominal pain that began few days after the nausea and vomiting. Patient denies radiation of abdominal pain to any part of her body. Patient reports 6-8 episodes of diarrhea almost everyday and denies any blood in her stools. She also reports vomit usually has some green contents in it with an acidic taste but denies any blood streaks. Patient is currently day 3 of her menses which she states are usually regular. Patient denies chest pain, SOB, recent sick cont acts,trauma, eating anything out of the ordinary. On exam, dry mucous membranes were noted and conjunctiva appeared pale. Patient's abdomen was tender to palpation in the epigastric region, no tenderness elicited on palpation of all 4 quadrants. The remainder of the abdominal exam was unremarkable. Labs and abdominal ultrasound ordered. Patient is being started on IV fluids and zofran for nausea. Reevaluation(s) Reevaluation #1: Labs reviewed and revealed. - patient mild anemia with an H&H of 11.1/33.5. Patient is currently on her menstrual period. Therefore most likely related to this. - UA revealed 30 protein 80 ketones moderate amount of blood and trace of leukocytes patient most likely UTI. - patient negative for . - patient positive for COVID. - patient negative for influenza and RSV. - abdominal ultrasound within normal limits no acute processes noted. - it appears that the patient's chemistry was hemolyzed therefore pending results although patient is tolerating p.o. fluids and saltine crackers at this time. If the rest of her labs are normal patient can be discharged with instructions to self isolate per CDC guidelines and to return if any new or worsening symptoms and symptomatic treatment to follow up with PCP. Patient understands agrees with this plan. Time: 12:55 Medications Administered Discontinued Medications Generic Name Dose Route Start Last Admin Trade Name Freq PRN Reason Stop Dose Admin Sodium Chloride 1,000 mls @ 999 mls/hr 07/14/22 10:45 07/14/22 11:22 Ns IVCONT 07/14/22 11:45 999 mls/hr .Q1H1M EMELIA Administration Ondansetron HCl 4 mg 07/14/22 09:45 07/14/22 09:48 Ondansetron Odt 4 Mg Tab.Rapdis TRANSLINGU 07/14/22 09:46 4 mg ONCE ONE Administration Ondansetron HCl 4 mg 07/14/22 10:38 07/14/22 11:23 Ondansetron Hcl 4 Mg/2 Ml Vial IVPUSH 07/14/22 10:39 4 mg ONCE ONE Administration MDM - Nausea/Vomiting/Diarrhea Medical Records Attestation: I reviewed the patient's medical records. Lab Data Attestation: I reviewed the patient's lab results. Result diagrams: 07/14/22 11:21 07/14/22 12:34 Labs: Lab Results 07/14/22 07/14/22 07/14/22 Range/Units 11:21 11:21 11:21 WBC 10.8 (4.8-10.8) X10*3/uL RBC 3.64 L (4.20-5.50) X10*6/uL Hgb 11.1 L (12.0-16.0) g/dl Hct 33.5 L (37.0-47.0) % MCV 92.0 (80.0-98.0) fL MCH 30.5 (27.0-33.0) pg MCHC 33.1 (31.0-35.0) g/dl RDW 14.2 (11.0-16.0) % Plt Count 223 D (160-400) X10*3/uL MPV 10.7 (9.4-12.3) fL Immature Gran % (Auto) 0.4 (0.0-0.4) % Neut % (Auto) 81.9 H (45-73) % Lymph % (Auto) 11.4 L (20-40) % [place] % (Auto) 6.0 (2-11) % Eos % (Auto) 0.0 (0-4) % Baso % (Auto) 0.3 (0-2) % Lymph # (Auto) 1.2 (1.2-4.9) X10*3/uL [place] # (Auto) 0.7 (0.1-1.2) X10*3/uL Eos # (Auto) 0.0 (0.0-0.4) X10*3/uL Baso # (Auto) 0.0 (0.0-0.2) X10*3/uL Abs Immat Gran (auto) 0.04 H (0.00-0.03) X10*3/uL Absolute Neuts (auto) 8.9 H (2.0-8.3) x10*3/uL Absolute Nucleated RBC 0.000 (0.0-0.012) X10*3/uL Nucleated RBC % (auto) 0.0 (0.0-0.2) /100WBC Sodium (135-145) mmol/L Potassium (3.3-5.1) mmol/L Chloride (96-108) mmol/L Carbon Dioxide (22-29) mmol/L Anion Gap (12-20) BUN (9-16) mg/dL Creatinine (0.5-1.4) mg/dL Estim Creat Clear Calc Estimated GFR Random Glucose (60-115) mg/dL Calcium (8.4-10.2) mg/dL Magnesium (1.6-2.6) mg/dL Total Bilirubin (0.0-1.0) mg/dL AST (5-31) U/L ALT (0-31) U/L Alkaline Phosphatase (39-117) U/L Total Protein (6.5-8.0) g/dL Albumin (3.5-5.0) g/dL Lipase (8-78) U/L Urine Color Dark Yellow Urine Appearance Clear Urine pH 6.0 (5.0-9.0) Ur Specific [place] >= 1.030 H (1.005-1.025) Urine Protein 30 (1+) H (Neg-Trace) mg/dL Urine Glucose (UA) Negative (Negative) mg/dL Urine Ketones 80 (Negative) mg/dL Urine Blood Moderate (2+) H (Negative) Urine Nitrite Negative (Negative) Ur Leukocyte Esterase Trace H (Negative) Urine RBC >20 H (0-2) /HPF Urine WBC 0-5 (0-5) /HPF Ur Squamous Epith Cells 3-5 (0-2) /HPF Urine Bacteria None Seen (None Seen) Hyaline Casts 0-2 (0-2) /LPF Urine Test (NEGATIVE) Influenza Type A (PCR) NEGATIVE (Negative) Influenza Type B (PCR) NEGATIVE (Negative) RSV RNA Qual (PCR) NEGATIVE (Negative) SARS-CoV-2 RNA (RT-PCR) POSITIVE A (Negative) 07/14/22 07/14/22 Range/Units 11:21 12:34 WBC (4.8-10.8) X10*3/uL RBC (4.20-5.50) X10*6/uL Hgb (12.0-16.0) g/dl Hct (37.0-47.0) % MCV (80.0-98.0) fL MCH (27.0-33.0) pg MCHC (31.0-35.0) g/dl RDW (11.0-16.0) % Plt Count (160-400) X10*3/uL MPV (9.4-12.3) fL Immature Gran % (Auto) (0.0-0.4) % Neut % (Auto) (45-73) % Lymph % (Auto) (20-40) % [place] % (Auto) (2-11) % Eos % (Auto) (0-4) % Baso % (Auto) (0-2) % Lymph # (Auto) (1.2-4.9) X10*3/uL [place] # (Auto) (0.1-1.2) X10*3/uL Eos # (Auto) (0.0-0.4) X10*3/uL Baso # (Auto) (0.0-0.2) X10*3/uL Abs Immat Gran (auto) (0.00-0.03) X10*3/uL Absolute Neuts (auto) (2.0-8.3) x10*3/uL Absolute Nucleated RBC (0.0-0.012) X10*3/uL Nucleated RBC % (auto) (0.0-0.2) /100WBC Sodium 140 (135-145) mmol/L Potassium 3.4 (3.3-5.1) mmol/L Chloride 108 (96-108) mmol/L Carbon Dioxide 22 (22-29) mmol/L Anion Gap 13 (12-20) BUN 6 L (9-16) mg/dL Creatinine 0.55 (0.5-1.4) mg/dL Estim Creat Clear Calc 114.8 Estimated GFR > 60 Random Glucose 85 (60-115) mg/dL Calcium 8.2 L D (8.4-10.2) mg/dL Magnesium 2.0 (1.6-2.6) mg/dL Total Bilirubin 0.5 (0.0-1.0) mg/dL AST 12 (5-31) U/L ALT 10 (0-31) U/L Alkaline Phosphatase 74 (39-117) U/L Total Protein 6.5 (6.5-8.0) g/dL Albumin 3.6 (3.5-5.0) g/dL Lipase 8 (8-78) U/L Urine Color Urine Appearance Urine pH (5.0-9.0) Ur Specific [place] (1.005-1.025) Urine Protein (Neg-Trace) mg/dL Urine Glucose (UA) (Negative) mg/dL Urine Ketones (Negative) mg/dL Urine Blood (Negative) Urine Nitrite (Negative) Ur Leukocyte Esterase (Negative) Urine RBC (0-2) /HPF Urine WBC (0-5) /HPF Ur Squamous Epith Cells (0-2) /HPF Urine Bacteria (None Seen) Hyaline Casts (0-2) /LPF Urine Test NEGATIVE (NEGATIVE) Influenza Type A (PCR) (Negative) Influenza Type B (PCR) (Negative) RSV RNA Qual (PCR) (Negative) SARS-CoV-2 RNA (RT-PCR) (Negative) Imaging Data Abdominal ultrasound: Attestation: I personally reviewed and interpreted this imaging study as follows: Radiologist's impression: FINDINGS: PANCREAS: Normal. ABDOMINAL AORTA: The proximal, mid, and distal segments are normal in caliber. INFERIOR VENA CAVA: Visualized portions are normal. LIVER: Unremarkable. The liver is normal in size. The liver contour is normal. Parenchymal echogenicity is normal. No focal hepatic lesion. There is no intrahepatic biliary duct dilatation seen. GALLBLADDER: Status post cholecystectomy. No right upper quadrant tenderness during the examination. COMMON BILE DUCT: Normal in caliber measuring 0.5 cm in diameter. RIGHT KIDNEY: Unremarkable. No hydronephrosis. No renal calculi or focal parenchymal lesions. The kidney measures 10.3 cm in maximum dimension. LEFT KIDNEY: Unremarkable. No hydronephrosis. No renal calculi or focal parenchymal lesions. The kidney measures 11.7 cm in maximum dimension. SPLEEN: Unremarkable. The spleen measures 10.7 cm in maximum dimension. FREE FLUID: None. US/US abdomen complete IMPRESSION: Unremarkable examination. ? Status post cholecystectomy. No intra- or extrahepatic biliary ductal dilatation. Discharge Plan Discharge Clinical Impression: COVID-19, Dehydration, Nausea & vomiting, Abdominal pain Patient Disposition: Home, Self-Care Instructions: COVID-19 (Coronavirus Disease 2019) (ED) Prescriptions: New ondansetron HCl 4 mg tablet 4 mg PO Q8H Qty: 14 0RF No Action fluoxetine 10 mg capsule 10 mg PO DAILY Qty: 30 6RF Fasenra 30 mg/mL syringe 30 mg subcut Q8W 28 Days Qty: 1 12RF albuterol sulfate 90 mcg/actuation HFA aerosol inhaler 2 puff inhalation Q6H PRN (Reason: sob) Qty: 8.5 0RF triamcinolone acetonide 0.5 % cream 1 appl topical BID 14 Days Qty: 15 0RF ondansetron HCl 4 mg tablet 4 mg PO Q8H PRN (Reason: nausea and vomiting) Qty: 14 0RF acetaminophen [Tylenol Extra Strength] 500 mg tablet 500 mg PO Q6H PRN (Reason: pain or fever) Qty: 20 0RF budesonide-formoterol [Symbicort] 160-4.5 mcg/actuation HFA aerosol inhaler 2 puff inhalation BID 30 Days Qty: 1 6RF fexofenadine [Padmini Allergy] 180 mg tablet 180 mg PO DAILY 90 Days Qty: 90 3RF ipratropium-albuterol 0.5 mg-3 mg(2.5 mg base)/3 mL solution for nebulization inhalation Q6H Referrals: Po,Ju Shaw MD [Primary Care Provider] - 3 days Stand Alone Forms: Work/School Release Print Language: Upper Sorbian
[2022-07-14] MEDS: 0.9 % Sodium Chloride 1,000 ML 999 ML IVCONT (11:22)
[2022-07-14] MEDS: ondansetron HCL 4 MG/2 ML VIAL IVPUSH (11:23)
[2022-07-14 11:29] LABS: MANUAL DIFF FLAG NO
[2022-07-14 11:36] LABS: Basophils Percent Auto 0.3 % (0-2); Hematocrit 33.5 % (37.0-47.0); Hemoglobin 11.1 g/dl (12.0-16.0); Imm Gran Abs Auto 0.04 X10*3/uL (0.00-0.03); Imm Gran Pct Auto 0.4 % (0.0-0.4); Lymphocytes Absolute Auto 1.2 X10*3/uL (1.2-4.9); Lymphocytes Percent Auto 11.4 % (20-40); Mean Corpuscular HGB Conc 33.1 g/dl (31.0-35.0); Mean Corpuscular Hemoglobin 30.5 pg (27.0-33.0); Mean Platelet Volume 10.7 fL (9.4-12.3); Monocytes Absolute Auto 0.7 X10*3/uL (0.1-1.2); Neutrophils Absolute Auto 8.9 x10*3/uL (2.0-8.3); Neutrophils Percent Auto 81.9 % (45-73); Platelet Count 223 X10*3/uL (160-400); Red Blood Count 3.64 X10*6/uL (4.20-5.50); Red Cell Distribution Width 14.2 % (11.0-16.0); White Blood Count 10.8 X10*3/uL (4.8-10.8)
[2022-07-14 11:39] LABS: UPreg QC Valid YES; Urine Pregnancy NEGATIVE (NEGATIVE)
[2022-07-14 11:41] LABS: Appearance Urine Clear; Color Urine Dark Yellow; Glucose Urine UA Negative (Negative); Leukocyte Esterase Urine Trace (Negative); Nitrite Urine Negative (Negative); Specific Gravity - Urine >= 1.030 (1.005-1.025); UMIC TRIGGER UACC YES; Urine Blood Moderate (2+) (Negative); Urine Ketones 80 mg/dL (Negative); Urine Protein 30 (1+) mg/dL (Neg-Trace)
[2022-07-14 11:48] LABS: Bacteria Urine None Seen (None Seen); Hyaline Casts Urine 0-2 /LPF (0-2); RBC Urine >20 /HPF (0-2); WBC Urine 0-5 /HPF (0-5)
[2022-07-14 12:13] LABS: Influenza A PCR NEGATIVE (Negative); Influenza B PCR NEGATIVE (Negative); Resp Syncy Virus RNA Qual PCR NEGATIVE (Negative); SARS COV2 PCR INHOUSE POSITIVE (Negative)
[2022-07-14 12:58] LABS: Alanine Aminotransferase 10 U/L (0-31); Albumin Level 3.6 g/dL (3.5-5.0); Alkaline Phosphatase 74 U/L (39-117); Anion Gap 13 (12-20); Aspartate Amino Transferase 12 U/L (5-31); Bilirubin Total 0.5 mg/dL (0.0-1.0); Blood Urea Nitrogen 6 mg/dL (9-16); Calcium 8.2 mg/dL (8.4-10.2); Carbon Dioxide 22 mmol/L (22-29); Chloride 108 mmol/L (96-108); Creatinine Clr Calc Pharmacy 114.8; Estimated Glomerular Filt Rate > 60; Glucose Random 85 mg/dL (60-115); Lipase 8 U/L (8-78); Potassium 3.4 mmol/L (3.3-5.1); Sodium 140 mmol/L (135-145); Total Protein 6.5 g/dL (6.5-8.0)
== END 2022-07-14 13:38 | disposition home or self-care (01) ==
PROVIDERS: Physician Assistant Medical; Emergency Provider Emergency Medicine; PCP Internal Medicine
DX: U07.1 COVID-19 (principal); R11.2 Nausea with vomiting, unspecified; R19.7 Diarrhea, unspecified; R51.9 Headache, unspecified; R05.9 Cough, unspecified; R10.13 Epigastric pain; Z79.899 Other long term (current) drug therapy
CPT/HCPCS: 0241U; 36415; 71046; 76700; 80053; 81001; 81025; 83690; 83735; 85025; 96361; 96374; 99284; J2405

== ENCOUNTER 2022-08-24 08:49 | Outpatient (REF) | payer OTHER, SELFPAY | END 2022-08-24 08:50 | disposition home or self-care (01) | LOC: HO.MDS 08:49 | PROVIDERS: Visit Provider Internal Medicine Pulmonary Disease | DX: J45.50 Severe persistent asthma, uncomplicated (principal) | CPT/HCPCS: 96372 ==

== ENCOUNTER 2022-09-12 06:53 | Emergency (ER) | payer OTHER, SELFPAY ==
--- NOTE | ~2022-09-12 | CT_ITS ---
EXAMINATION: CT ABDOMEN AND PELVIS WITH CONTRAST CLINICAL INFORMATION: Abdominal pain COMPARISON: Abdominal ultrasound July 14, [address] abdomen pelvis August 07, 2021 TECHNIQUE: Multidetector volumetric images were obtained from the superior aspect of the liver through the pubic symphysis following administration 85 mL of Omnipaque 350 intravenous contrast. Sagittal and coronal reformatted images were obtained on the technologist's workstation. This CT examination was performed using dose optimization techniques as appropriate, variously including the following: *Automated exposure control *Adjustment of mA and/or kV according to patient size (this includes techniques or standardized protocols for targeted exams where dose is matched to indication/reason for exam; i.e. extremities or head) *Use of iterative reconstruction technique DLP: 331 mGy-cm FINDINGS: Visualized lung bases are well aerated. The liver demonstrates normal size, contour and attenuation. The gallbladder surgically absent. The pancreas, spleen and adrenal glands are unremarkable. Symmetrically enhancing kidneys. No hydronephrosis. Normal caliber loops of small and large bowel. Normal caliber abdominal aorta. Mildly dilated, refluxing left ovarian vein with mild periuterine varices. The bladder is normal in appearance. Unremarkable CT appearance of the uterus. Small amount of free pelvic fluid is nonspecific but often times physiologic in a patient of this age. No inguinal lymphadenopathy. No acute osseous abnormality. CT/CT abdomen pelvis w IV con IMPRESSION: 1. No CT evidence for acute abnormality within the abdomen or pelvis. 2. Mildly dilated, refluxing left ovarian vein with mild periuterine varices. Findings are nonspecific but can be seen in the setting of retroperitoneal venous malformation. Fleischner guidelines were followed.
[2022-09-12 07:00] VITALS: BP 99/59; PULSE 92; RESP 20; TEMP 36.8; O2SAT 97; BMI 20.7
[2022-09-12] MEDS: ondansetron HCL 4 MG/2 ML VIAL IVPUSH (07:15)
[2022-09-12 07:17] LABS: Basophils Percent Auto 0.2 % (0-2); Hematocrit 41.8 % (37.0-47.0); Hemoglobin 13.7 g/dl (12.0-16.0); Imm Gran Abs Auto 0.07 X10*3/uL (0.00-0.03); Imm Gran Pct Auto 0.5 % (0.0-0.4); Lymphocytes Absolute Auto 0.2 X10*3/uL (1.2-4.9); Lymphocytes Percent Auto 1.8 % (20-40); MANUAL DIFF FLAG SCAN; Mean Corpuscular HGB Conc 32.8 g/dl (31.0-35.0); Mean Corpuscular Hemoglobin 29.6 pg (27.0-33.0); Mean Corpuscular Volume 90.3 fL (80.0-98.0); Monocytes Absolute Auto 0.3 X10*3/uL (0.1-1.2); Monocytes Percent Auto 2.1 % (2-11); Neutrophils Absolute Auto 12.3 x10*3/uL (2.0-8.3); Neutrophils Percent Auto 95.4 % (45-73); Platelet Count 282 X10*3/uL (160-400); Red Blood Count 4.63 X10*6/uL (4.20-5.50); Red Cell Distribution Width 13.3 % (11.0-16.0); SCAN SMEAR FLAG 1; White Blood Count 12.9 X10*3/uL (4.8-10.8)
--- NOTE | 2022-09-12 07:36 | ED_ITS ---
HPI - Nausea/Vomiting/Diarrhea General Chief complaint: Nausea/Vomiting/Diarrhea Stated complaint: vomiting Time Seen by Provider: 09/12/22 07:28 Source: patient Mode of arrival: ambulatory Limitations: no limitations History of Present Illness HPI Narrative: This is 27 years old female presented to the ED with chief complaint of nausea vomiting for about 2days, denies any fever chills diarrhea MD elicited complaint: nausea Onset (ago): day(s) (2) Description of vomiting: watery Description of diarrhea: watery Associated nausea: Yes Associated abdominal pain: Yes Quality: cramping Exacerbating factors: none Relieving factors: none Related Data Home Medications Medication Instructions Recorded Confirmed ipratropium 0.5 mg-albuterol 3 mg ml inhalation Q6H 05/11/20 04/06/22 (2.5 mg base)/3 mL nebulization soln Previous Rx's Medication Instructions Recorded acetaminophen 500 mg tablet 500 mg PO Q6H PRN pain or fever 07/18/20 (Tylenol Extra Strength) #20 tabs fluoxetine 10 mg capsule 10 mg PO DAILY #30 caps 09/07/20 fexofenadine 180 mg tablet 180 mg PO DAILY 90 days #90 tabs 12/01/21 (Padmini Allergy) benralizumab 30 mg/mL subcutaneous 30 mg subcut Q8W 28 days #1 mL 12/17/21 syringe (Fasenra) Symbicort 160 mcg-4.5 2 puff inhalation BID 30 days #1 ea 04/06/22 mcg/actuation HFA aerosol inhaler (budesonide-formoterol) triamcinolone acetonide 0.5 % 1 appl topical BID 14 days #15 05/11/22 topical cream grams benzonatate 100 mg capsule 100 mg PO BID-TID PRN cough #20 08/31/22 caps albuterol sulfate 90 mcg/actuation 2 puff inhalation Q6H PRN sob #8.5 09/09/22 aerosol inhaler grams Allergies Allergy/AdvReac Type Severity Reaction Status Date / Time ibuprofen [From MOTRIN] AdvReac Intermediate N/V, Verified 08/24/22 15:26 vomiting prednisone AdvReac pain Verified 08/24/22 15:26 Review of Systems Constitutional: Constitutional: Reports no additional constitutional complaints Cardiovascular: Cardiovascular: Reports no additional cardiovascular complaints Gastrointestinal: Gastrointestinal: Reports nausea and Reports vomiting PMFSH Past Medical History Medical History Abnormal renal finding Eczema Environmental allergies Rhinitis Surgical History History of cholecystectomy History of tonsillectomy and adenoidectomy Hx of tubal ligation Family History Family History Mother Asthma Bipolar 1 disorder Hypertension Schizophrenia Father No problems noted. Maternal Grandmother Hypertension Family/Other Breast cancer Social History Social History Housing: Apartment Alcohol intake: never Patient Tobacco Use Status: Never used Tobacco Smoked in Last 30 Days: No e-Cigarette/Vaping Use: Never Used Second Hand Smoke Exposure: No Use of substances other than those prescribed or required for medical reasons: No Substance Use Type: Marijuana Advance Directives: No Advance Directives Information Provided: No Advance Directives Date on File: 10/24/20 Current occupational status: disabled Cognitive needs: No Hearing needs: No Vision needs: No Physical Exam Vital Signs: Vital Signs: Last Vital Signs Temp 97.9 F 09/12/22 09:08 Pulse 85 09/12/22 09:08 Resp 20 09/12/22 09:08 BP 105/55 L 09/12/22 09:08 Pulse Ox 100 09/12/22 09:08 O2 Del Method 09/12/22 09:08 BMI result Body Mass Index 20.7 Const: General: cooperative, comfortable, no acute distress and well developed Nutritional Appearance: average body habitus Orientation/consciousness: patient oriented x3 Limitations: no limitations HEENT: Head: Yes normal to inspection Ears: hearing grossly normal bi laterally Face and sinus: Yes normal facial exam Mouth: Normal oral and palatal mucosa present Throat: Yes posterior oropharynx normal Neck: Neck: Yes normal visual inspection Chest: Chest palpation & inspection: normal inspection of the chest Resp: Effort & Inspection: normal respiratory effort Auscultation: clear to auscultation bilaterally Cardio: Jugular venous distension: no JVD Rate: regular rate Rhythm: regular rhythm GI: Inspection: Yes normal to inspection Palpation (GI): Soft to palpation Skin: General skin exam: no rashes or lesions noted, elasticity normal and turgor normal Lesions: no lesions Rashes: no rashes Neuro: General: patient oriented x3 Cranial nerves: Yes CN's II-XII intact bilaterally Course Reevaluation(s) Reevaluation #1: Feels much better,asymtomatic Time: 10:27 Medications Administered Discontinued Medications Generic Name Dose Route Start Last Admin Trade Name Andrzej PRN Reason Stop Dose Admin Acetaminophen 650 mg 09/12/22 08:58 09/12/22 09:28 Acetaminophen 325 Mg Tablet PO 09/12/22 08:59 650 mg ONCE ONE Administration Diphenhydramine HCl 12.5 mg 09/12/22 09:33 09/12/22 09:41 Diphenhydramine Hcl 50 Mg/Ml Vial IVPUSH 09/12/22 09:34 12.5 mg ONCE ONE Administration Sodium Chloride 1,000 mls @ 999 mls/hr 09/12/22 07:30 09/12/22 10:30 Ns IVCONT 09/12/22 08:30 Infused .Q1H1M EMELIA Infusion Sodium Chloride 1,000 mls @ 999 mls/hr 09/12/22 07:45 09/12/22 10:30 Ns IVCONT 09/12/22 08:45 Infused .Q1H1M EMELIA Infusion Iohexol 100 ml 09/12/22 09:16 09/12/22 09:17 Iohexol 350 Mg/Ml 100 Ml Infus..Btl IV 09/12/22 09:17 85 ml ONCE ONE Administration Metoclopramide HCl 10 mg 09/12/22 08:56 09/12/22 09:28 Metoclopramide Hcl 10 Mg/2 Ml Vial IVPUSH 09/12/22 08:57 10 mg ONCE ONE Administration Ondansetron HCl 4 mg 09/12/22 07:08 09/12/22 07:15 Ondansetron Hcl 4 Mg/2 Ml Vial IVPUSH 09/12/22 07:09 4 mg ONCE ONE Administration Medical Decision Making Medical Decision Making [facility] Narrative: Presented to the emergency department complaining nausea vomiting we will get labs, IV fluids reassess Differential Diagnosis Differential Diagnoses: The differential diagnosis associated with the presentation includes Gastroenteritis, viral syndrome, cyclic vomiting Admission/Observation Consideration of admission/observation: Escalation of care including admission/observation considered Lab Data [facility] Lab Attestation statement: I reviewed the patient's lab results. 09/12/22 07:13 09/12/22 07:13 Labs: Lab Results 09/12/22 09/12/22 09/12/22 Range/Units 07:13 07:13 09:34 WBC 12.9 H (4.8-10.8) X10*3/uL RBC 4.63 D (4.20-5.50) X10*6/uL Hgb 13.7 D (12.0-16.0) g/dl Hct 41.8 D (37.0-47.0) % MCV 90.3 (80.0-98.0) fL MCH 29.6 (27.0-33.0) pg MCHC 32.8 (31.0-35.0) g/dl RDW 13.3 (11.0-16.0) % Plt Count 282 D (160-400) X10*3/uL MPV 10.0 (9.4-12.3) fL Immature Gran % (Auto) 0.5 H (0.0-0.4) % Neut % (Auto) 95.4 H (45-73) % Lymph % (Auto) 1.8 L (20-40) % [place] % (Auto) 2.1 (2-11) % Eos % (Auto) 0.0 (0-4) % Baso % (Auto) 0.2 (0-2) % Lymph # (Auto) 0.2 L (1.2-4.9) X10*3/uL [place] # (Auto) 0.3 (0.1-1.2) X10*3/uL Eos # (Auto) 0.0 (0.0-0.4) X10*3/uL Baso # (Auto) 0.0 (0.0-0.2) X10*3/uL Abs Immat Gran (auto) 0.07 H (0.00-0.03) X10*3/uL Absolute Neuts (auto) 12.3 H (2.0-8.3) x10*3/uL Absolute Nucleated RBC 0.000 (0.0-0.012) X10*3/uL Nucleated RBC % (auto) 0.0 (0.0-0.2) /100WBC Smear Tech's Comments VERIFIED Sodium 137 (135-145) mmol/L Potassium 5.2 H D (3.3-5.1) mmol/L Chloride 105 (96-108) mmol/L Carbon Dioxide 23 (22-29) mmol/L Anion Gap 14 (12-20) BUN 10 (9-16) mg/dL Creatinine 0.74 (0.5-1.4) mg/dL Estim Creat Clear Calc 85.3 Estimated GFR > 60 Random Glucose 129 H (60-115) mg/dL Calcium 9.2 D (8.4-10.2) mg/dL Total Bilirubin 1.0 (0.0-1.0) mg/dL Direct Bilirubin 0.2 (0.0-0.5) mg/dL AST 24 (5-31) U/L ALT 17 (0-31) U/L Alkaline Phosphatase 93 (39-117) U/L Total Protein 7.7 (6.5-8.0) g/dL Albumin 4.1 (3.5-5.0) g/dL Beta HCG, Quant < 2 mIU/mL Urine Color Yellow Urine Appearance Clear Urine pH 8.5 (5.0-9.0) Ur Specific [place] >= 1.030 H (1.005-1.025) Urine Protein Negative (Neg-Trace) mg/dL Urine Glucose (UA) Negative (Negative) mg/dL Urine Ketones Trace (Negative) mg/dL Urine Blood Negative (Negative) Urine Nitrite Negative (Negative) Ur Leukocyte Esterase Negative (Negative) Urine RBC 0-2 (0-2) /HPF Urine WBC 0-5 (0-5) /HPF Ur Squamous Epith Cells 6-10 (0-2) /HPF Urine Bacteria Trace (None Seen) Hyaline Casts 0-2 (0-2) /LPF Urine Test (NEGATIVE) Urine Opiates Screen (Not Detect) Urine Fentanyl Screen (Not Detect) Ur Barbiturates Screen (Not Detect) Ur Phencyclidine Scrn (Not Detect) Ur Amphetamines Screen (Not Detect) U Benzodiazepines Scrn (Not Detect) Urine Cocaine Screen (Not Detect) U Marijuana (THC) Screen (Not Detect) 09/12/22 09/12/22 Range/Units 09:37 09:37 WBC (4.8-10.8) X10*3/uL RBC (4.20-5.50) X10*6/uL Hgb (12.0-16.0) g/dl Hct (37.0-47.0) % MCV (80.0-98.0) fL MCH (27.0-33.0) pg MCHC (31.0-35.0) g/dl RDW (11.0-16.0) % Plt Count (160-400) X10*3/uL MPV (9.4-12.3) fL Immature Gran % (Auto) (0.0-0.4) % Neut % (Auto) (45-73) % Lymph % (Auto) (20-40) % [place] % (Auto) (2-11) % Eos % (Auto) (0-4) % Baso % (Auto) (0-2) % Lymph # (Auto) (1.2-4.9) X10*3/uL [place] # (Auto) (0.1-1.2) X10*3/uL Eos # (Auto) (0.0-0.4) X10*3/uL Baso # (Auto) (0.0-0.2) X10*3/uL Abs Immat Gran (auto) (0.00-0.03) X10*3/uL Absolute Neuts (auto) (2.0-8.3) x10*3/uL Absolute Nucleated RBC (0.0-0.012) X10*3/uL Nucleated RBC % (auto) (0.0-0.2) /100WBC Smear Tech's Comments Sodium (135-145) mmol/L Potassium (3.3-5.1) mmol/L Chloride (96-108) mmol/L Carbon Dioxide (22-29) mmol/L Anion Gap (12-20) BUN (9-16) mg/dL Creatinine (0.5-1.4) mg/dL Estim Creat Clear Calc Estimated GFR Random Glucose (60-115) mg/dL Calcium (8.4-10.2) mg/dL Total Bilirubin (0.0-1.0) mg/dL Direct Bilirubin (0.0-0.5) mg/dL AST (5-31) U/L ALT (0-31) U/L Alkaline Phosphatase (39-117) U/L Total Protein (6.5-8.0) g/dL Albumin (3.5-5.0) g/dL Beta HCG, Quant mIU/mL Urine Color Urine Appearance Urine pH (5.0-9.0) Ur Specific [place] (1.005-1.025) Urine Protein (Neg-Trace) mg/dL Urine Glucose (UA) (Negative) mg/dL Urine Ketones (Negative) mg/dL Urine Blood (Negative) Urine Nitrite (Negative) Ur Leukocyte Esterase (Negative) Urine RBC (0-2) /HPF Urine WBC (0-5) /HPF Ur Squamous Epith Cells (0-2) /HPF Urine Bacteria (None Seen) Hyaline Casts (0-2) /LPF Urine Test NEGATIVE (NEGATIVE) Urine Opiates Screen Not Detected (Not Detect) Urine Fentanyl Screen Not Detected (Not Detect) Ur Barbiturates Screen Not Detected (Not Detect) Ur Phencyclidine Scrn Not Detected (Not Detect) Ur Amphetamines Screen Not Detected (Not Detect) U Benzodiazepines Scrn Not Detected (Not Detect) Urine Cocaine Screen Not Detected (Not Detect) U Marijuana (THC) Screen POSITIVE H (Not Detect) Radiology Impression Discussion of test interpretation with radiology: I have reviewed the radiologist's reading. Radiologist Impression: rkable. Symmetrically enhancing kidneys. No hydronephrosis. Normal caliber loops of small and large bowel. Normal caliber abdominal aorta. Mildly dilated, refluxing left ovarian vein with mild periuterine varices. The bladder is normal in appearance. Unremarkable CT appearance of the uterus. Small amount of free pelvic fluid is nonspecific but often times physiologic in a patient of this age. No inguinal lymphadenopathy. No acute osseous abnormality. CT/CT abdomen pelvis w IV con IMPRESSION: 1.? No CT evidence for acute abnormality within the abdomen or pelvis. 2.? Mildly dilated, refluxing left ovarian vein with mild periuterine varices. Findings are nonspecific but can be seen in the setting of retroperitoneal venous malformation. ? Fleischner guidelines were followed. Dictated By: Jarod Tiwari MD Signed By: <Electronically signed by Jarod Tiwari MD in [place]> 09/12/22 0697 External Record Review External record reviewed: Inpatient record Discharge Plan Discharge Clinical Impression: Vomiting Patient Disposition: Home, Self-Care Instructions: Acute Nausea and Vomiting (ED) Prescriptions: No Action fluoxetine 10 mg capsule 10 mg PO DAILY Qty: 30 6RF Fasenra 30 mg/mL syringe 30 mg subcut Q8W 28 Days Qty: 1 12RF triamcinolone acetonide 0.5 % cream 1 appl topical BID 14 Days Qty: 15 0RF benzonatate 100 mg capsule 100 mg PO BID-TID PRN (Reason: cough) Qty: 20 0RF albuterol sulfate 90 mcg/actuation HFA aerosol inhaler 2 puff inhalation Q6H PRN (Reason: sob) Qty: 8.5 0RF acetaminophen [Tylenol Extra Strength] 500 mg tablet 500 mg PO Q6H PRN (Reason: pain or fever) Qty: 20 0RF budesonide-formoterol [Symbicort] 160-4.5 mcg/actuation HFA aerosol inhaler 2 puff inhalation BID 30 Days Qty: 1 6RF fexofenadine [Padmini Allergy] 180 mg tablet 180 mg PO DAILY 90 Days Qty: 90 3RF ipratropium-albuterol 0.5 mg-3 mg(2.5 mg base)/3 mL solution for nebulization inhalation Q6H Referrals: Po,Ju Shaw MD [Primary Care Provider] - 2 days Interventions: ED Discharge Assessment Last Done: 09/12/22 11:00 Discharge Date/Time: 09/12/22 11:01
[2022-09-12] MEDS: 0.9 % Sodium Chloride 1,000 ML 999 ML IVCONT ×2 (07:41)
[2022-09-12 07:52] LABS: Alanine Aminotransferase 17 U/L (0-31); Albumin Level 4.1 g/dL (3.5-5.0); Alkaline Phosphatase 93 U/L (39-117); Anion Gap 14 (12-20); Aspartate Amino Transferase 24 U/L (5-31); Bilirubin Direct 0.2 mg/dL (0.0-0.5); Blood Urea Nitrogen 10 mg/dL (9-16); Calcium 9.2 mg/dL (8.4-10.2); Carbon Dioxide 23 mmol/L (22-29); Chloride 105 mmol/L (96-108); Creatinine Clr Calc Pharmacy 85.3; Estimated Glomerular Filt Rate > 60; Glucose Random 129 mg/dL (60-115); Potassium 5.2 mmol/L (3.3-5.1); Sodium 137 mmol/L (135-145); Total Protein 7.7 g/dL (6.5-8.0)
[2022-09-12 07:53] LABS: SLIDE REVIEW VERIFIED
[2022-09-12 08:47] LABS: HCG Quantitative < 2 mIU/mL
[2022-09-12 09:08] VITALS: BP 105/55; PULSE 85; RESP 20; TEMP 36.6; O2SAT 100
--- NOTE | 2022-09-12 09:15 | PC.NURSE ---
pt a&0x3, iv fluids running per order, vss. will continue to monitor
[2022-09-12] MEDS: iohexoL 350 MG/ML 100 ML INFUS..BTL IV (09:17)
[2022-09-12] MEDS: Acetaminophen 325 MG TABLET 650 MG PO (09:28)
[2022-09-12] MEDS: Metoclopramide HCl 10 MG/2 ML VIAL IVPUSH (09:28)
--- NOTE | 2022-09-12 09:29 | PC.NURSE ---
pt medicated per order
[2022-09-12] MEDS: diphenhydrAMINE HCL 50 MG/ML VIAL 12.5 MG IVPUSH (09:41)
[2022-09-12 09:51] LABS: Color Urine Yellow; Glucose Urine UA Negative (Negative); Leukocyte Esterase Urine Negative (Negative); Nitrite Urine Negative (Negative); PH 8.5 (5.0-9.0); Specific Gravity - Urine >= 1.030 (1.005-1.025); Urine Blood Negative (Negative); Urine Ketones Trace mg/dL (Negative); Urine Protein Negative (Neg-Trace)
[2022-09-12 09:52] LABS: UPreg QC Valid YES; Urine Pregnancy NEGATIVE (NEGATIVE)
[2022-09-12 09:52] LABS: Appearance Urine Clear
[2022-09-12 09:53] LABS: Bacteria Urine Trace (None Seen); Hyaline Casts Urine 0-2 /LPF (0-2); RBC Urine 0-2 /HPF (0-2); WBC Urine 0-5 /HPF (0-5)
[2022-09-12 09:59] LABS: Amphetamine Screen Urine Not Detected (Not Detect); Barbiturates, Urine Not Detected (Not Detect); Benzodiazepines Screen Urine Not Detected (Not Detect); Cannabinoid Screen Urine POSITIVE (Not Detect); Cocaine Screen Urine Not Detected (Not Detect); Fentanyl, urine Not Detected (Not Detect); Opiate Screen Urine Not Detected (Not Detect); Phencyclidine Screen Urine Not Detected (Not Detect)
== END 2022-09-12 11:01 | disposition home or self-care (01) ==
PROVIDERS: Emergency Provider Emergency Medicine; PCP Internal Medicine
DX: R11.2 Nausea with vomiting, unspecified (principal); I10 Essential (primary) hypertension; F12.90 Cannabis use, unspecified, uncomplicated; Z79.899 Other long term (current) drug therapy
CPT/HCPCS: 36415; 74177; 80053; 80076; 80307; 81001; 81025; 82248; 84702; 85025; 96361; 96374; 96375; 99284; 99285; J1200; J2405; J2765; Q9967